=== PATIENT | female | born 1950 | race Caucasian/White ===

== ENCOUNTER 2016-11-20 16:02 | Emergency (ER) | payer MEDICARE, OTHER ==
--- NOTE | ~2016-11-20 | CT4 ---
[facility] A Service of [facility] & [facility] RADIOLOGY TEXT RESULTS PATIENT: YINKA BRADY LOCATION: [facility] : 49 UNIT #: [id number] AGE: [address]: Roscoe Hernandez MD SEX: F ORDER DR: [id number] [facility] [address] [place], [place] [address] [id number] MR#: [id number] #: [id number] NAME: YINKA BRADY. : 1950 SEX: F STUDY DATE/TIME: 11/20/2016 17:33 UNIT: [facility] ROOM: STUDY DESCRIPTION: CT Abd and Pelv Wo Cont Attending Physician: Roscoe Hernandez M.D. Ordering Physician: Roscoe Hernandez M.D. Primary Care Physician: Parris Napier M.D. MEDICAL IMAGING REPORT This report is preliminary unless electronic signature is present EXAM Abdomen and pelvis CT, no contrast, 11/20/2016 INDICATIONS 66-year-old female with abdominal and epigastric pain for 3 days. History of pancreatitis from alcohol abuse. Hypertension, anemia, diverticulosis. TECHNIQUE Noncontrast abdomen and pelvis CT was performed and compared with 09/17/2016. This CT exam was performed with one or more of the following radiation dose reduction techniques: Automatic exposure control, adjustment of mA and/or kV according to patient size, and iterative reconstruction. FINDINGS CT ABDOMEN: Exam markedly degraded by noncontrast technique. Included lung bases demonstrate bibasilar atelectasis/scarring, no effusion. No pericardial effusion. Aorta demonstrates atherosclerotic change. The spleen demonstrates granulomatous calcifications. The right adrenal gland is normal. There is a stable benign left adrenal adenoma. It measures 1.5 cm. Gallbladder unremarkable. There is diffuse fatty infiltration of the liver. The pancreas is atrophic. There are calcifications associated with the pancreas concentrated in the region of the head and uncinate process, but also involving the body. There is stranding of the peripancreatic fat. Imaging features suggest acute on chronic pancreatitis. Correlate with amylase and lipase levels. There is no drainable fluid collection or distinct pseudocyst at this time. The patency of the peripancreatic vasculature cannot be assessed due to noncontrast technique. Kidneys demonstrate no hydronephrosis or radiopaque stone. [facility] A Service of [facility] RADIOLOGY TEXT RESULTS PATIENT: YINKA BRADY LOCATION: [facility] : 48 UNIT #: [id number] AGE: [address]: Roscoe Hernandez MD SEX: F ORDER DR: CT PELVIS: Bladder unremarkable. No drainable fluid collection in the pelvis or adnexal mass. There is diverticulosis. No evidence of bowel obstruction. The appendix is normal. Chronic-appearing wall thickening of the ascending colon may reflect sequelae of prior infectious or inflammatory insults. Inguinal canals are unremarkable. No suspicious bone lesion. IMPRESSION 1. Imaging features most characteristic of mild acute on chronic pancreatitis. Correlate with amylase and lipase levels. No drainable fluid collection or pseudocyst within limitations of noncontrast CT. 2. Benign left adrenal adenoma. 3. Fatty infiltration of the liver. 4. The appendix is normal. 5. Diverticulosis. Dictated by... Michel Hathaway M.D. THIS IS AN ELECTRONICALLY VERIFIED REPORT Michel Hathaway M.D. at 11/21/2016 7:44 AM BELTRAN/krunal TD: 11/21/2016 02:02 JOB #: [id number] MEDICAL IMAGING REPORT COPY
--- NOTE | ~2016-11-20 | EKG ---
PATIENT: YINKA BRADY UNIT #: [id number] Ventricular Rate: 66 BPM Atrial Rate: 66 BPM P-R Interval: 186 ms QRS Duration: 78 ms Q-T Interval: 434 ms QTC Calculation(Bezet): 454 ms P Ciales: 63 degrees Calculated R Ciales: 39 degrees Calculated T Ciales: 24 degrees Diagnosis Line: Normal sinus rhythm Diagnosis Line: Normal ECG Diagnosis Line: When compared with ECG of 21-MAR-2016 03:05, Diagnosis Line: SC interval has decreased Diagnosis Line: Nonspecific T wave abnormality has replaced Diagnosis Line: inverted T waves in Anterior leads Diagnosis Line: QT has shortened Diagnosis Line: Confirmed by JEANETH BASHIR MD ([id number]) on 11/21/2016 Diagnosis Line: 7:29:20 PM INTERPRETING MD: MCKAY LOPEZ
[2016-11-20 15:52] LABS: BASOPHIL# 0.1 X10e3 (0-0.3); EOSINOPHIL# 0.9 X10e3 (0-0.7); EOSINOPHIL% 10.6 % (0.0-7.0); HEMATOCRIT 33.6 % (35.0-45.0); HEMOGLOBIN 11.2 gm/dL (12.0-16.0); LYMPHOCYTE# 0.9 X10e3 (1.0-3.5); LYMPHOCYTE% 10.5 % (17.0-45.0); MEAN CELL VOLUME 100.7 FL (83-96); MEAN CORPUSCULAR HEMOGLOBIN 33.7 PG (28-34); MEAN CORPUSCULAR HGB CONC 33.4 g/dL (30-36); MEAN PLATELET VOLUME 9.2 FL (6.5-11.5); MONOCYTE# 0.8 X10e3 (0-1.0); NEUTROPHIL% 68.9 % (40-75); PLATELET COUNT 238 X10e3 (140-420); RED BLOOD COUNT 3.34 X10e (3.90-5.30); RED CELL DISTRIBUTION WIDTH 13.7 % (11.0-15.5); WHITE BLOOD COUNT 8.7 X10e3 (4.0-10.5)
[2016-11-20 15:54] LABS: DIFF IND NO
[~2016-11-20 16:02] MED LIST: ADVIL200 M3 PO; ALBUTEROL17 G1 IH; AMBIEN PO; AMLODIPINE BESYL5 MG PO; ASPIRIN PO; ATARAX PO; ATENOLOL50 MG PO; AUGMENTIN875 M1 DOB; BENZONATATE PO; BUSPAR PO; DARVOCET-N 1001 TAB; ELIMITE60 GM TOP; ERYTHROMYCIN250 MG PO; FLAGYL PO; FLEXERIL10 MG PO; FOLIC ACID1 MG PO; HYDROCODON-ACE1 EAC7 PO; HYDROCODON-ACE1 EAC9 PO; HYDROCODONE-APA1 T57 PO; KCL PO; LORTAB 5/500 TA1 TA1 PO; LORTAB 7.5-5001 TAB PO; MACROBID100 M1 PO; MAG-OX 400400 M1 PO; MULTI VITAMIN1 EACH PO; NO MEDICATIONS; OXAZEPAM15 MG PO; PEPCID AC20 M2 PO; PERCOCET 7.5/321 TAB PO; POTASSIUM CHLO10 ME1 PO; PRILOSEC20 M1 PO; THIAMINE HCL100 M2 PO; TOPROL XL PO; TRAMADOL HCL50 M1 PO; VITAMIN B-1000 MCG/1 IJ; VITAMIN B-1000 MCG/1 INJ; [UNRECOGNIZED DRUG - CODE] TP
[2016-11-20 16:12] LABS: URINE SOURCE CLEAN CATCH
[2016-11-20 16:16] LABS: URINE APPEARANCE CLOUDY; URINE BILIRUBIN NEG (NEG); URINE BLOOD 3+ (NEG); URINE COLOR YELLOW; URINE GLUCOSE NEG (NEG); URINE KETONE NEG (NEG); URINE LEUKOCYTE ESTERASE 2+ (NEG); URINE NITRATE NEG (NEG); URINE PROTEIN 1+ (NEG); URINE SPECIFIC GRAVITY 1.016 (1.003-1.035); URINE UROBILINOGEN 0.2 MG/DL (NEG)
[2016-11-20 16:17] LABS: POC - CKMB <1.0 ng/mL (0.0-7.9); POC - TROPONIN <0.05 ng/mL (<=0.05)
[2016-11-20 16:18] LABS: CULTURE INDICATED? YES; URBCS1 AUWI 100-200 /[HPF] (0-2); URINE BACTERIA AUWI NEG (NEGATIVE); URINE SQUAMOUS EPITHELIAL CELL OCC /[HPF]
[2016-11-20 16:20] LABS: U HYALINE CASTS AUWI 0-2 /[LPF]
[2016-11-20 16:21] LABS: URINE YEAST PRESENT
[2016-11-20 16:45] LABS: ALBUMIN SERUM 3.7 g/dL (3.5-5.0); ALCOHOL BLOOD <5 mg/dL (0); ALKALINE PHOSPHATASE 193 U/L (32-92); ALT (SGPT) 28 U/L (10-40); AMYLASE 174 U/L (0-46); AST (SGOT) 37 U/L (10-42); BILIRUBIN, DIRECT 0.2 mg/dL (0.0-0.2); BILIRUBIN,INDIRECT 0.4 mg/dL (0.0-0.9); BILIRUBIN,TOTAL 0.6 mg/dL (0.2-2.0); BLOOD UREA NITROGEN 27 mg/dL (9-23); BUN/CREATININE RATIO 12.27; CALCIUM SERUM 8.6 mg/dL (8.4-10.2); CARBON DIOXIDE 16 mmol/L (22-31); CHLORIDE 110 mmol/L (100-111); CREATININE SERUM 2.2 mg/dL (0.6-1.4); GLOM FILT RATE Estimated 23.7 mL/min (>60); GLUCOSE FASTING 115 mg/dL (70-110); LIPASE 452 U/L (22-51); POTASSIUM 3.6 mmol/L (3.5-5.1); SODIUM 137 mmol/L (135-145)
[2017-01-24] MEDS ORDERED: TRAMADOL HCL50 M1 PO (19:52)
== END 2016-11-20 18:40 | disposition home or self-care (01) ==
LOC: CED 16:02
PROVIDERS: Emergency Medicine
DX: K85.90 Acute pancreatitis without necrosis or infection, unspecified (principal); N17.9 Acute kidney failure, unspecified; I10 Essential (primary) hypertension; F17.200 Nicotine dependence, unspecified, uncomplicated
CPT/HCPCS: 74176; 80048; 80076; 81003; 82150; 82553; 83690; 84484; 85025; 87086; 87186; 93005; 96361; 96374; 99284; G0480; J2405

== ENCOUNTER 2016-12-03 21:53 | Inpatient (IN) | payer MEDICARE, OTHER ==
--- NOTE | ~2016-12-03 | DS ---
Unit #: [id number] #: [id number] Patient: YINKA BRADY [id number] [address] [address] [id number] I MR#: [id number] NAME: YINKA BRADY. ROOM: 215 Age: 66 Sex: F Admission Date: 12/03/2016 : 1950 Discharge Date: 12/12/2016 Attending Physician: Aylin Jeffries M.D. Primary Care Physician: Parris Napier M.D. DISCHARGE SUMMARY DISCHARGE DIAGNOSES 1. Recurrent relapsing alcohol-induced pancreatitis. 2. Acute kidney injury/acute tubular necrosis with paraproteinemia. 3. Fluid overload. 4. Extended spectrum beta lactamases urinary tract infection. 5. Anemia, chronic iron deficiency. 6. Hypertension, uncontrolled. 7. Hyperlipidemia. 8. History of diverticular disease. 9. Anxiety. 10. Chronic pain on opiates. 11. History of severe hepatic steatosis. 12. History of nondisplaced fractures of L2, L3, and L4. 13. History of diabetes mellitus type 2. 14. Chronic obstructive pulmonary disease. 15. Vitamin B12 deficiency. 16. Metabolic acidosis. CONSULTATION Dr. Alan Coulter. PROCEDURE None. DIAGNOSTIC STUDIES LABORATORY: Sodium 138, potassium 4.3, carbon dioxide 19, creatinine 2.8. Urinalysis shows RBC 100-200, leukocyte esterase trace, WBC 2-5. WBC 7.7, hemoglobin 8.3, platelets 323,000. IMAGING: Chest x-ray: Mild bibasilar atelectasis versus infiltrates present. Ultrasound of the kidneys: Negative. ALLERGIES None. DISCHARGE MEDICATIONS 1. Sodium bicarbonate 650 three times daily. 2. Buspirone 7.5 mg p.o. b.i.d. 3. Tenormin 50 mg p.o. daily. 4. Lasix 40 daily. 5. Hydralazine 75 p.o. b.i.d. 6. Multivitamin one tablet daily. Unit #: [id number] #: [id number] Patient: YINKA BRADY 7. Tramadol 50 mg q.6 p.r.n. pain. 8. Folic acid 1 mg daily. 9. Thiamine 100 daily. HOSPITALIZATION COURSE A 66 year old admitted because of abdominal pain. Abdominal pain secondary to recurrent relapsing alcohol pancreatitis. The patient was put NPO, IV fluids given. Currently, she is tolerating diet. Continue with low-fat diet at home. Acute kidney injury/ATN with paraproteinemia: The patient is seen by Dr. Coulter. Workup has been done which is negative so far. She did receive fluids initially. Currently, she is fluid overload. Dr. Salgado started her on Lasix. I gave prescription. The patient will have BMP in one week time and follow with Dr. Coulter. Urinary tract infection with ESBL: The patient received meropenem. She completed her course. Hypertension: Uncontrolled. Hydralazine has been added. I gave prescription. Metabolic acidosis: Sodium bicarbonate has been added. Prescription given. DISPOSITION The patient will be discharged home. FOLLOWUP 1. Follow with family physician in one week time. The patient will have BMP checked in one week time and follow PCP with results. 2. Follow with Dr. No/Dr. Coulter in one to two weeks' time. Discharge time taken is 31 minutes. Dictated by... Sandro Santiago/yobany TD: 12/12/2016 16:30 JOB #: [id number] DISCHARGE SUMMARY Page 1 of 1 X Aylin Jeffries MD X DISCHARGE SUMMARY
--- NOTE | ~2016-12-03 | CR63 ---
[facility] A Service of [facility] RADIOLOGY TEXT RESULTS PATIENT: YINKA BRADY LOCATION: [facility] : 49 UNIT #: [id number] AGE: [address]: Aylin Jeffries MD SEX: F ORDER DR: [id number] [facility] [address] [place], [place] [address] [id number] I MR#: [id number] Acc #: [id number] NAME: YINKA BRADY : 1950 SEX: F STUDY DATE/TIME: 12/09/2016 13:23 UNIT: [facility] ROOM: [facility] STUDY DESCRIPTION: CR Chest 2 View Attending Physician: Aylin Jeffries M.D. Ordering Physician: Cameron Sultana M.D. Primary Care Physician: Parris Napier M.D. MEDICAL IMAGING REPORT This report is preliminary unless electronic signature is present EXAM Two-view chest, 12/09/2016 HISTORY 66-year-old female with shortness of air for 1 week. COMPARISON Chest, 03/21/2016 FINDINGS 2 views of the chest demonstrate mild bibasilar atelectasis/infiltrate. Small bilateral pleural effusions are suspected. No pneumothorax. Heart size is upper limits. Mediastinum and pulmonary vasculature unremarkable. IMPRESSION Mild bibasilar atelectasis/infiltrate and questionable small bilateral pleural effusions. Dictated by... Tank Ware M.D. THIS IS AN ELECTRONICALLY VERIFIED REPORT Tank Ware M.D. at 12/11/2016 8:34 AM Jaclyn TD: 12/10/2016 10:26 JOB #: [id number] MEDICAL IMAGING REPORT Page 1 of 1 COPY
--- NOTE | ~2016-12-03 | US77 ---
[facility] A Service of [facility] RADIOLOGY TEXT RESULTS PATIENT: YINKA BRADY LOCATION: [facility] : 49 UNIT #: [id number] AGE: [address]: COLETTE COULTER MD SEX: F ORDER DR: [id number] [facility] [address] [place], [place] [address] [id number] I MR#: [id number] Acc #: [id number] NAME: YINKA BRADY. : 1950 SEX: F STUDY DATE/TIME: 12/05/2016 11:36 UNIT: [facility] ROOM: [facility][note 3] STUDY DESCRIPTION: US Kidney Bilateral Complete Attending Physician: Colette Coulter M.D. Ordering Physician: Matti Cazares M.D. Primary Care Physician: Parris Napier M.D. MEDICAL IMAGING REPORT This report is preliminary unless electronic signature is present EXAM Renal ultrasound INDICATIONS Acute kidney injury. BUN 22 creatinine 2.5 GFR 20 PROCEDURE Schrader-scale and Doppler imaging of the kidneys and bladder. Comparison CT from 11/20/2016 FINDINGS Right kidney measures 10.3 cm. Normal cortical thickness and echotexture. There is a small amount of ascites in the right lower quadrant and in the pelvis. The left kidney measures 11.8 cm. Normal cortical thickness and echotexture. No hydronephrosis. IMPRESSION 1. Negative renal ultrasound. 2. Small amount of ascites is seen in the lower abdomen and pelvis. 3. Not mentioned above the bladder is relatively decompressed and not well seen. Dictated by... Maximus Sibley M.D. THIS IS AN ELECTRONICALLY VERIFIED REPORT Maximus Sibley M.D. at 12/06/2016 7:04 AM EED/rnr TD: 12/05/2016 17:14 JOB #: [id number] MEDICAL IMAGING REPORT [facility] A Service [facility] [place] [place] RADIOLOGY TEXT RESULTS PATIENT: YINKA BRADY LOCATION: [facility] : 48 UNIT #: [id number] AGE: [address]: COLETTE COULTER MD SEX: F ORDER DR: RIVERA
--- NOTE | ~2016-12-03 | CO ---
Unit #: [id number] #: [id number] Patient: YINKA BRADY [id number] [address] [place], [place] [address] [id number] I MR#: [id number] NAME: YINKA BRADY. ROOM: 215 Age: 66 Sex: F Admission Date: 12/03/2016 : 1950 Attending Physician: Terra Coulter M.D. Primary Care Physician: Parris Napier M.D. Consultation Date: 12/07/2016 CONSULTATION REPORT REASON FOR CONSULTATION Elevated creatinine level. HISTORY OF PRESENT ILLNESS The patient is a 66-year-old white female with known history of chronic alcohol use and secondary pancreatitis recurrently, hypertension, hyperlipidemia, came in with complaints of back ache and was admitted for possible pancreatitis. Creatinine level noted to be 2.6, with the creatinine of 1.3 in 08/2016 and 0.8 in 02/2016 with noted creatinine of 2.2 in 10/2016, and has been ranging from 2.5 to 2.9 since admission on 12/03/2016. The patient has not noted to be on any NSAIDs, recent IV contrast, nephrotoxic antibiotics. PAST MEDICAL HISTORY Significant for hypertension, hyperlipidemia, diverticular disease, anxiety disorder, right shoulder surgery. ALLERGIES No known drug allergies. FAMILY HISTORY Unremarkable for end-stage renal disease. SOCIAL HISTORY The patient lives alone. Does not smoke. Currently, continue to drink about a pint a day. REVIEW OF SYSTEMS CVS: No chest pain. RESPIRATORY: No cough or expectoration. GI: As above. : No hematuria, no dysuria. PHYSICAL EXAMINATION GENERAL: The patient is awake, alert, and oriented. VITAL SIGNS: Temperature is 98, heart rate is 78 per minute, blood pressure is 146/90. HEENT: Head is atraumatic. Extraocular movements are intact. Sclerae are anicteric. NECK: Supple. There is no elevation of JVD. CHEST: Clear. Air entry is equal bilaterally. Breathing is vesicular in nature. CARDIAC: S1, S2 audible. There is no S3, no S4. ABDOMEN: Soft. There is no organomegaly. No guarding. No rigidity. No Unit #: [id number] #: [id number] Patient: YINKA BRADY rebound tenderness. There is edema after IV fluids. DIAGNOSTIC STUDIES LABORATORY RESULTS: WBC is 12.8, hemoglobin is 11.5, hematocrit is 36, platelets are 237. Sodium is 134, potassium 3.1, chloride 106, CO2 of 15, BUN 30, creatinine 2.9, glucose 96, calcium 8.6 on admission. Total bilirubin 0.7. LFTs are normal. Albumin is 3.7. Lipase is 203. IMPRESSION 1. Acute kidney injury likely acute tubular necrosis with underlying chronic kidney disease stage 3, possibly secondary to sepsis syndrome, hemodynamic related changes. Renal function could take a few days to improve. Quantitative proteinuria. Check for renal ultrasound. Consider workup for paraproteinemia. Unlikely postinfectious glomerulonephritis. Follow urinary sediment. 2. Pancreatitis. 3. Hyponatremia, likely secondary to hemodynamic related increase and stimulation of antidiuretic hormone. 4. Hypokalemia, supplement. 5. Non-anion gap metabolic acidosis secondary to acute kidney injury. Dictated by... Alan Coulter M.D. RA/nic TD: 12/08/2016 13:21 JOB #: [id number] CONSULTATION REPORT X Alan Coulter MD CONSULTATION REPORT
--- NOTE | ~2016-12-03 | A ---
[facility] Nutrition Therapy DATE: 12/04/16 Patient: YINKA BRADY Physician: YVETTE Address: [address] [place] [address] Room/Bed: [address] [place] [address], Zip: [place] [address] Admit Date: 12/03/16 Date of : [birth year] Height: 5 3 Weight: 100 45.35 NUTRITIONAL ASSESSMENT: REASON: Low BMI 66 yo pt admitted for acute pancreatitis and acute REGINO PMH: HLD, HTN, anemia, recurrent pancreatitis, anxiety, diverticulosis Anthropometrics: HT: 5'3", WT: 45 kg (99#), BMI: 17.5, 86%IBW Labs: Na+ 133, Gluc 170, BUN 26, Creat 2.6, Ca++ 7.6, Alb 3.0, Phos 2.2, GFR 19.5 Meds: Zofran, Pepcid, D5%, Thiamine I/O & Bowel function: information not available Skin Integrity: Bruises (arms), scabs (back, shoulder, arms) Estimated Nutrition Needs: Increased energy and protein needs Assessment: Chart reviewed, events noted. Pt has a history of recurrent acute pancreatitis and alcohol abuse. Pt reported loss of appetite and nausea since Saturday (4 days), but reported a good appetite prior. Pt reported 30# wt loss over past year, stating UBW ~115-118#. RD encouraged adequate calorie and protein intake, pt agreeded, receiving Ensure Clear. RD provided verbal low-fat diet education. Pt reported no diet education needs at this time. RD to follow. Dx: Inadequate energy intake RT current clinical condition AEB clear liquid diet, 17.5 BMI, 86%IBW, patient's report above. Intervention: 1. Ensure Clear 2. Clear Liquid Monitoring, Evaluation and Goals: 1. PO intake; provide and consume ~80-100% of estimated energy needs 2. Labs; WNL 3. GI; promote regular GI function Recommendations: 1. Once medically feasible, advance diet as tolerated to low-fat diet 2' dx, PMH. [facility] Nutrition Therapy DATE: 12/04/16 Patient: YINKA BRADY Physician: YVETTE Address: [address] [place] [address] Room/Bed: [address] [place] [address], Zip: [place] [address] Admit Date: 12/03/16 Date of : [birth year] Height: 5 3 Weight: 100 45.35 2. Encourage adequate supplement PO intake. RD will f/u per protcol as pt is at moderate nutritional risk. Respectfully, SUSAN KATZ, Dry Kiln Loader Dalia Gannon MS, RD, LD Food and Nutritional Services [facility] cc: client file
--- NOTE | ~2016-12-03 | FU ---
[facility] Nutrition Therapy DATE: 12/10/16 Patient: YINKA BRADY Physician: YVETTE Address: [address] [place] [address] Room/Bed: [address] [place] [address], Zip: [place] [address] Admit Date: 12/03/16 Date of : [birth year] Height: 5 3 Weight: 100 45.35 NUTRITION MONITORING/FOLLOW-UP: Reason: PT SEEN FOR FOLLOW-UP DX: PANCREATITIS, REGINO Anthropometrics: 5'3", WT: 99# (ADMIT WEIGHT) (45 KG), BMI: 17.5 Labs: GLU: 112, BUN: 37, CREAT: 3.0 Meds: THIAMINE, PEPCID, NACL, ZOFRAN I&O's: 1445/900 Skin: ISSUES NOTED EDEMA: BUE 2+ EDEMA; BLE 2+ EDEMA Estimated Nutrition Needs: INCREASED NUTRIENT NEEDS 2' PT UNDERWEIGHT, CURRENT CONDITION, PMH Assessment: CHART REVIEWED AND EVENTS NOTED. PT SEEN FOR FOLLOW-UP. PT REPORTS DRY MOUTH AND VOMITING THIS AM. PT REPORTS SLOWLY TOLERATING PO INTAKE AND APPETITE. THIS RD ENCOURAGED SLOW GRADUAL PO INTAKE WELL ADEQUATE KCAL AND PROTEIN INTAKE, PT AGREED AND WANTS TO CONTINUE DRINKING ENSURE CLEAR BID. PT REPORTED NO DIET QUESTIONS AT THIS TIME. RD TO FOLLOW. Dx: INADEQUATE ENERGY INTAKE R/T CURRENT CLINICAL CONDITION AEB LOW BMI NOTED (17.5), PT REPORT ABOVE- IN PROGRESS. Intervention: 1. HH DIET 2. MIXED ANTHONY ENSURE CLEAR BID Monitoring, Evaluation and Goals: GOALS NOT MET 1. PO INTAKE; CONSUME >50% OF MEALS W/NO C/O N/V/D 2. WEIGHTS; PROMOTE GRADUAL WEIGHT GAIN AND PREVENT WEIGHT LOSS 3. LABS; WNL 4. GI; PROMOTE REGULAR GI FUNCTION MONITOR: -PO INTAKE/APPETITE -SUPPLEMENT INTAKE -WEIGHTS Recommendations: [facility] Nutrition Therapy DATE: 12/10/16 Patient: YINKA BRADY Physician: YVETTE Address: [address] [place] [address] Room/Bed: [address] [place] [address], Zip: [place] [address] Admit Date: 12/03/16 Date of : [birth year] Height: 5 3 Weight: 100 45.35 1. CONTINUE TO ENCOURAGE ADEQUATE KCAL, PROTEIN AND FLUID INTAKE 2. OBTAIN UPDATED WEIGHTS q 3 DAYS FOR MONITORING PURPOSES RD WILL F/U PER PROTOCOL PT IS MILD/MODERATELY COMPROMISED Respectfully, RAKAN HELMS MS, RD, LD Food and Nutritional Services [facility] cc: client file
--- NOTE | ~2016-12-03 | HP ---
Unit #: [id number] #: [id number] Patient: YINKA BRADY [id number] [address] [place], [place] [address] [id number] MR#: [id number] NAME: YINKA BRADY. ROOM: 327[address] Age: 66 Sex: F Admission Date: 12/03/2016 : 1950 Attending Physician: Marbella Douglass M.D. Primary Care Physician: Parris Napier M.D. HISTORY AND PHYSICAL CHIEF COMPLAINT Recurrent relapsing pancreatitis. HISTORY This 66-year-old female with hypertension, hyperlipidemia, previous history of alcohol-induced pancreatitis, is admitted for pancreatitis. The patient was in her usual state of health until three days ago when she began to experience her usual abdominal and chest discomfort radiating to her back, similar to her previous episodes of pancreatitis and notes that her urine appears to be darker although she denies change in her urinary output. She has been taking some clear liquids but not able to eat. She presents to this emergency department with labs consistent with acute pancreatitis and acute kidney injury. She was given a liter of saline, Zofran, morphine and Protonix. PAST MEDICAL HISTORY 1. Hyperlipidemia. 2. Hypertension. 3. History of anemia. 4. Diverticular disease. 5. Recurrent pancreatitis secondary to alcohol abuse. 6. Anxiety disorder. 7. Wrist surgery. 8. Right shoulder surgery. ALLERGIES None. HOME MEDICATIONS Uncertain; I believe patient takes atenolol, cholesterol medicine, vitamins but will check with [facility] pharmacy. FAMILY HISTORY Diabetes, negative for pancreatis disease. SOCIAL HISTORY The patient essentially lives alone although her son's friend stays there some of the time. She does not smoke. She was drinking a pint a day of alcohol but states that she has cut down significantly recently, and her last drink was two drinks a couple days ago. REVIEW OF SYSTEMS Unit #: [id number] #: [id number] Patient: YINKA BRADY Notable for nausea, poor p.o. intake, abdominal pain, hyperlipidemia, hypertension, anemia, diverticular disease, pancreatitis, alcohol abuse, abovementioned surgeries. All other systems were reviewed and are otherwise negative. PHYSICAL EXAMINATION GENERAL: Pleasant, thin 66-year-old female currently in no acute distress. VITAL SIGNS: Temperature 98. Pulse 78. Respirations 16. Blood pressure 146/90. O2 saturation is 98% on room air. HEENT: Eyes PERRLA, extraocular muscles are intact. Pharynx is benign. NECK: Supple, without adenopathy or thyromegaly. CHEST: Clear CARDIAC: Normal S1 and S2, without S3, S4 or murmur. ABDOMEN: Bowel sounds are present. Generalized abdominal tenderness without rebound or guarding. Patient does have mild hepatomegaly on exam. No masses. EXTREMITIES: Without cyanosis, clubbing or edema. Pedal pulses are present. NEUROLOGIC EXAM: Patient is awake, alert, oriented. Cranial nerves are intact. Equal strength throughout. DIAGNOSTIC STUDIES LABORATORY: Admission labs: Hematocrit is 36, white blood count is 12.8, MCV is 1.1, normal platelet count. SMA-12: BUN 30, creatinine 2.9 up from a creatinine of 1.3 08/2016, sodium 134, potassium 3.1, CO2 was 15, lipase is 202, alkaline phosphatase 268. ASSESSMENT 1. Recurrent relapsing alcohol-induced pancreatitis. 2. Acute kidney injury in large part secondary to dehydration with hypokalemia. 3. Hypertension. 4. Hyperlipidemia. PLANS 1. Aggressive IV fluids and pain control. 2. Obtain Is and Os. 3. Replace potassium, check magnesium. 4. DVT and gastritis prophylaxis. 5. Recheck all labs in the morning. 6. Low threshold for CT scan if symptoms are not improving. Dictated by Marbella Douglass M.D. AML/cf TD: 12/03/2016 22:37 JOB #: [id number] Unit #: [id number] #: [id number] Patient: YINKA BRADY HISTORY AND PHYSICAL X Marbella Douglass MD HISTORY AND PHYSICAL
[2016-12-03 20:14] LABS: BASOPHIL# 0.1 X10e3 (0-0.3); BASOPHIL% 0.7 % (0-2.5); DIFF IND NO; EOSINOPHIL# 0.4 X10e3 (0-0.7); EOSINOPHIL% 3.1 % (0.0-7.0); HEMOGLOBIN 11.5 gm/dL (12.0-16.0); LYMPHOCYTE# 1.1 X10e3 (1.0-3.5); LYMPHOCYTE% 8.7 % (17.0-45.0); MEAN CORPUSCULAR HEMOGLOBIN 32.3 PG (28-34); MEAN PLATELET VOLUME 9.5 FL (6.5-11.5); MONOCYTE# 1.5 X10e3 (0-1.0); MONOCYTE% 11.6 % (3.0-12.0); NEUTROPHIL# 9.7 X10e3 (1.5-7.1); NEUTROPHIL% 75.9 % (40-75); PLATELET COUNT 237 X10e3 (140-420); RED BLOOD COUNT 3.57 X10e (3.90-5.30); RED CELL DISTRIBUTION WIDTH 13.3 % (11.0-15.5); WHITE BLOOD COUNT 12.8 X10e3 (4.0-10.5)
[2016-12-03 20:36] LABS: ALBUMIN SERUM 3.7 g/dL (3.5-5.0); BILIRUBIN, DIRECT 0.2 mg/dL (0.0-0.2); BILIRUBIN,INDIRECT 0.5 mg/dL (0.0-0.9); BILIRUBIN,TOTAL 0.7 mg/dL (0.2-2.0); BUN/CREATININE RATIO 10.34; CALCIUM SERUM 8.6 mg/dL (8.4-10.2); CREATININE SERUM 2.9 mg/dL (0.6-1.4); GLOM FILT RATE Estimated 17.2 mL/min (>60); POTASSIUM 3.1 mmol/L (3.5-5.1); PROTEIN TOTAL SERUM 7.4 g/dL (6.0-8.3)
[2016-12-03 23:42] LABS: URINE SOURCE CLEAN CATCH
[2016-12-03 23:47] LABS: URINE APPEARANCE TURBID; URINE BILIRUBIN NEG (NEG); URINE BLOOD 3+ (NEG); URINE COLOR ORANGE; URINE GLUCOSE NEG (NEG); URINE KETONE NEG (NEG); URINE LEUKOCYTE ESTERASE 2+ (NEG); URINE NITRATE NEG (NEG); URINE PROTEIN 2+ (NEG); URINE SPECIFIC GRAVITY 1.013 (1.003-1.035); URINE UROBILINOGEN 0.2 MG/DL (NEG)
[2016-12-03 23:50] LABS: CULTURE INDICATED? YES; URBCS1 AUWI INNUM /[HPF] (0-2); URINE BACTERIA AUWI NEG (NEGATIVE); URINE SQUAMOUS EPITHELIAL CELL OCC /[HPF]; UWBCS1 AUWI 25-50 (0-5)
[2016-12-04] LABS: URINE RED BLOOD CELL CAST 0-2 /[HPF]
[2016-12-04 03:18] LABS: BASOPHIL# 0.1 X10e3 (0-0.3); BASOPHIL% 0.7 % (0-2.5); EOSINOPHIL# 0.8 X10e3 (0-0.7); EOSINOPHIL% 6.8 % (0.0-7.0); HEMATOCRIT 29.7 % (35.0-45.0); HEMOGLOBIN 9.6 gm/dL (12.0-16.0); LYMPHOCYTE# 1.6 X10e3 (1.0-3.5); MEAN CELL VOLUME 101.8 FL (83-96); MEAN CORPUSCULAR HEMOGLOBIN 32.9 PG (28-34); MEAN CORPUSCULAR HGB CONC 32.3 g/dL (30-36); MEAN PLATELET VOLUME 9.7 FL (6.5-11.5); MONOCYTE# 1.8 X10e3 (0-1.0); MONOCYTE% 14.3 % (3.0-12.0); NEUTROPHIL# 8.1 X10e3 (1.5-7.1); NEUTROPHIL% 65.2 % (40-75); PLATELET COUNT 223 X10e3 (140-420); RED BLOOD COUNT 2.92 X10e (3.90-5.30); RED CELL DISTRIBUTION WIDTH 13.3 % (11.0-15.5); WHITE BLOOD COUNT 12.4 X10e3 (4.0-10.5)
[2016-12-04 03:22] LABS: DIFF IND NO
[2016-12-04 04:06] LABS: BILIRUBIN,TOTAL 0.7 mg/dL (0.2-2.0); BUN/CREATININE RATIO 10.74; CALCIUM SERUM 7.6 mg/dL (8.4-10.2); CREATININE SERUM 2.7 mg/dL (0.6-1.4); GLOM FILT RATE Estimated 18.7 mL/min (>60); MAGNESIUM 1.8 mg/dL (1.6-3.0); POTASSIUM 3.6 mmol/L (3.5-5.1); PROTEIN TOTAL SERUM 5.6 g/dL (6.0-8.3)
[2016-12-04 14:49] LABS: CALCIUM SERUM 7.6 mg/dL (8.4-10.2); CREATININE SERUM 2.6 mg/dL (0.6-1.4); GLOM FILT RATE Estimated 19.5 mL/min (>60); POTASSIUM 3.6 mmol/L (3.5-5.1)
[2016-12-05 06:27] LABS: HEMATOCRIT 27.9 % (35.0-45.0); HEMOGLOBIN 9.2 gm/dL (12.0-16.0); MEAN CELL VOLUME 99.9 FL (83-96); MEAN CORPUSCULAR HEMOGLOBIN 33.1 PG (28-34); MEAN CORPUSCULAR HGB CONC 33.1 g/dL (30-36); MEAN PLATELET VOLUME 9.6 FL (6.5-11.5); RED BLOOD COUNT 2.79 X10e (3.90-5.30); RED CELL DISTRIBUTION WIDTH 13.3 % (11.0-15.5); WHITE BLOOD COUNT 10.1 X10e3 (4.0-10.5)
[2016-12-05 06:57] LABS: BUN/CREATININE RATIO 8.8; CALCIUM SERUM 7.6 mg/dL (8.4-10.2); CREATININE SERUM 2.5 mg/dL (0.6-1.4); GLOM FILT RATE Estimated 20.4 mL/min (>60); POTASSIUM 3.3 mmol/L (3.5-5.1)
[2016-12-06 07:37] LABS: BUN/CREATININE RATIO 8.07; CREATININE SERUM 2.6 mg/dL (0.6-1.4); GLOM FILT RATE Estimated 19.5 mL/min (>60); POTASSIUM 4.2 mmol/L (3.5-5.1)
[2016-12-07 06:08] LABS: BUN/CREATININE RATIO 8.46; CALCIUM SERUM 7.8 mg/dL (8.4-10.2); CREATININE SERUM 2.6 mg/dL (0.6-1.4); GLOM FILT RATE Estimated 19.5 mL/min (>60); POTASSIUM 4.7 mmol/L (3.5-5.1)
[2016-12-08 09:10] LABS: HEMATOCRIT 25.1 % (35.0-45.0); MEAN CELL VOLUME 101.6 FL (83-96); MEAN CORPUSCULAR HEMOGLOBIN 32.5 PG (28-34); MEAN PLATELET VOLUME 9.8 FL (6.5-11.5); RED BLOOD COUNT 2.47 X10e (3.90-5.30); RED CELL DISTRIBUTION WIDTH 13.6 % (11.0-15.5); WHITE BLOOD COUNT 11.5 X10e3 (4.0-10.5)
[2016-12-08 10:12] LABS: BUN/CREATININE RATIO 10.74; CALCIUM SERUM 8.3 mg/dL (8.4-10.2); CREATININE SERUM 2.7 mg/dL (0.6-1.4); GLOM FILT RATE Estimated 18.7 mL/min (>60); POTASSIUM 4.8 mmol/L (3.5-5.1)
[2016-12-09 08:07] LABS: BUN/CREATININE RATIO 10.62; CALCIUM SERUM 8.6 mg/dL (8.4-10.2); CREATININE SERUM 3.2 mg/dL (0.6-1.4); GLOM FILT RATE Estimated 15.4 mL/min (>60); POTASSIUM 4.7 mmol/L (3.5-5.1)
[2016-12-09 08:52] LABS: URINE APPEARANCE CLEAR; URINE BILIRUBIN NEG (NEG); URINE BLOOD 3+ (NEG); URINE COLOR YELLOW; URINE GLUCOSE NEG (NEG); URINE KETONE NEG (NEG); URINE LEUKOCYTE ESTERASE NEG (NEG); URINE NITRATE NEG (NEG); URINE PROTEIN 1+ (NEG); URINE SPECIFIC GRAVITY 1.011 (1.003-1.035); URINE UROBILINOGEN 0.2 MG/DL (NEG)
[2016-12-09 08:55] LABS: U HYALINE CASTS AUWI 0-2 /[LPF]; URBCS1 AUWI 100-200 /[HPF] (0-2); URINE BACTERIA AUWI NEG (NEGATIVE); URINE SQUAMOUS EPITHELIAL CELL NONE SEEN /[HPF]; UWBCS1 AUWI 0-2 (0-5)
[2016-12-09 10:44] LABS: HEMATOCRIT 28.4 % (35.0-45.0); HEMOGLOBIN 9.1 gm/dL (12.0-16.0); MEAN CELL VOLUME 101.2 FL (83-96); MEAN CORPUSCULAR HEMOGLOBIN 32.3 PG (28-34); MEAN CORPUSCULAR HGB CONC 31.9 g/dL (30-36); MEAN PLATELET VOLUME 9.1 FL (6.5-11.5); RED BLOOD COUNT 2.81 X10e (3.90-5.30); RED CELL DISTRIBUTION WIDTH 13.8 % (11.0-15.5); WHITE BLOOD COUNT 13.5 X10e3 (4.0-10.5)
[2016-12-10 06:08] LABS: HEMATOCRIT 25.7 % (35.0-45.0); HEMOGLOBIN 8.3 gm/dL (12.0-16.0); MEAN CELL VOLUME 99.3 FL (83-96); MEAN CORPUSCULAR HGB CONC 32.3 g/dL (30-36); MEAN PLATELET VOLUME 9.3 FL (6.5-11.5); RED BLOOD COUNT 2.59 X10e (3.90-5.30); RED CELL DISTRIBUTION WIDTH 13.8 % (11.0-15.5); WHITE BLOOD COUNT 7.7 X10e3 (4.0-10.5)
[2016-12-10 06:56] LABS: BUN/CREATININE RATIO 12.33; CALCIUM SERUM 8.5 mg/dL (8.4-10.2); GLOM FILT RATE Estimated 16.5 mL/min (>60); POTASSIUM 4.7 mmol/L (3.5-5.1)
[2016-12-11 06:25] LABS: HEMATOCRIT 25.1 % (35.0-45.0); HEMOGLOBIN 8.1 gm/dL (12.0-16.0); MEAN CELL VOLUME 99.4 FL (83-96); MEAN CORPUSCULAR HGB CONC 32.2 g/dL (30-36); MEAN PLATELET VOLUME 9.1 FL (6.5-11.5); RED BLOOD COUNT 2.52 X10e (3.90-5.30); WHITE BLOOD COUNT 5.8 X10e3 (4.0-10.5)
[2016-12-11 06:48] LABS: BUN/CREATININE RATIO 13.22; CALCIUM SERUM 8.4 mg/dL (8.4-10.2); CREATININE SERUM 3.1 mg/dL (0.6-1.4); GLOM FILT RATE Estimated 15.9 mL/min (>60); POTASSIUM 4.3 mmol/L (3.5-5.1)
[2016-12-11 23:12] LABS: SPE A1GLOB (PNL) 0.4 g/dL (0.2-0.3); SPE A2GLOB (PNL) 0.6 g/dL (0.5-0.9); SPE ALB (PNL) 3.1 g/dL (3.8-4.8); SPE BETA 1 GLOBULIN 0.3 g/dL (0.4-0.6); SPE BETA 2 GLOBULIN 0.5 g/dL (0.2-0.5); SPE GAMMA (PNL) 0.9 g/dL (0.8-1.7); SPETP (PNL) 5.8 g/dL (6.1-8.1)
[2016-12-12 10:03] LABS: URINE SOURCE CLEAN CATCH
[2016-12-12 10:04] LABS: URBCS1 AUWI 100-200 /[HPF] (0-2); URINE APPEARANCE CLOUDY; URINE BACTERIA AUWI NEG (NEGATIVE); URINE BILIRUBIN NEG (NEG); URINE BLOOD 3+ (NEG); URINE COLOR YELLOW; URINE GLUCOSE NEG (NEG); URINE KETONE TRACE (NEG); URINE LEUKOCYTE ESTERASE TRACE (NEG); URINE NITRATE NEG (NEG); URINE PROTEIN 1+ (NEG); URINE SPECIFIC GRAVITY 1.014 (1.003-1.035); URINE SQUAMOUS EPITHELIAL CELL NONE SEEN /[HPF]; URINE UROBILINOGEN 0.2 MG/DL (NEG)
[2016-12-12 10:08] LABS: CULTURE INDICATED? NO
[2016-12-12 12:00] LABS: BUN/CREATININE RATIO 14.64; CALCIUM SERUM 8.5 mg/dL (8.4-10.2); CREATININE SERUM 2.8 mg/dL (0.6-1.4); GLOM FILT RATE Estimated 17.9 mL/min (>60); POTASSIUM 4.3 mmol/L (3.5-5.1)
[2016-12-12] MEDS ORDERED: SODIUM BICARBO650 MG PO (14:11)
[2016-12-12] MEDS ORDERED: FUROSEMIDE40 MG PO (14:12)
[2016-12-12] MEDS ORDERED: APRESOLINE PO (14:14)
[2016-12-13 11:00] LABS: UPE RAND ALPHA1 GLOB 4 % (()); UPE RAND PROT/CREAT 1082 (21-161); UPE RANDOM ALB (PNL) 39 % (()); UPE RANDOM ALPHA 2 GLOB 11 % (()); UPE RANDOM BETA GLOB 14 % (()); UPE RANDOM CREATININE 84.1 mg/dL (20-320); UPE RANDOM GAMMA GLOB 32 % (()); UPE RANDOM TOTAL PROTEIN (PNL) 91 mg/dL (5-24)
[2016-12-13 20:59] LABS: MYELOPEROXIDASE AB (PNL) <1.0 AI (<1.0); PROTEINASE-3 AB (PNL) <1.0 AI (<1.0)
[2016-12-14 00:43] LABS: COMPLEMENT C3 112 mg/dL (90-180); COMPLEMENT C4 26 mg/dL (16-47)
[2017-01-24] MEDS ORDERED: TRAMADOL HCL50 M1 PO (19:52)
== END 2016-12-12 15:49 | disposition home or self-care (01) | DRG 438 ==
LOC: CED 21:53 → CEDOF 22:00 → C2A 12-04 07:55
PROVIDERS: Internal Medicine; Internal Medicine Endocrinology, Diabetes & Metabolism; Internal Medicine Nephrology
PROC: 30233N1 Transfusion of Nonautologous Red Blood Cells into Peripheral Vein, Percutaneous Approach (ICD-10-PCS; principal; 2016-12-07)
DX: K85.20 Alcohol induced acute pancreatitis without necrosis or infection (principal); N17.0 Acute kidney failure with tubular necrosis; E87.2 Acidosis; D89.2 Hypergammaglobulinemia, unspecified; E87.70 Fluid overload, unspecified; N39.0 Urinary tract infection, site not specified; B96.20 Unspecified Escherichia coli [E. coli] as the cause of diseases classified elsewhere; Z68.1 Body mass index [BMI] 19.9 or less, adult; E87.1 Hypo-osmolality and hyponatremia; K86.0 Alcohol-induced chronic pancreatitis; E86.0 Dehydration; Z16.12 Extended spectrum beta lactamase (ESBL) resistance; I12.9 Hypertensive chronic kidney disease with stage 1 through stage 4 chronic kidney disease, or unspecified chronic kidney disease; N18.3 Chronic kidney disease, stage 3 (moderate); D50.8 Other iron deficiency anemias; E78.5 Hyperlipidemia, unspecified; F41.9 Anxiety disorder, unspecified; G89.29 Other chronic pain; E11.9 Type 2 diabetes mellitus without complications; J44.9 Chronic obstructive pulmonary disease, unspecified; E53.8 Deficiency of other specified B group vitamins; Z83.3 Family history of diabetes mellitus; E87.6 Hypokalemia; R63.6 Underweight
CPT/HCPCS: 36415; 71020; 76770; 80048; 80053; 80076; 81003; 82150; 83690; 83735; 84156; 84165; 84166; 84478; 85025; 85027; 86021; 86160; 86335; 87086; 87088; 87186; 99285; C9113; J0696; J1940; J2185; J2270; J2405; P9047

== ENCOUNTER 2016-12-26 18:42 | Inpatient (IN) | payer MEDICARE, OTHER ==
--- NOTE | ~2016-12-26 | US136 ---
[facility] A Service of [facility] RADIOLOGY TEXT RESULTS PATIENT: YINKA BRADY LOCATION: [facility] [id number] : [birth year] UNIT #: [id number] AGE: [address]: Roxann Strauss MD SEX: F ORDER DR: [id number] [facility] [address] [place], [place] [address] [id number] I MR#: [id number] Acc #: [id number] NAME: YINKA BRADY. : 1950 SEX: F STUDY DATE/TIME: 12/29/2016 12:32 UNIT: [facility] ROOM: [facility] STUDY DESCRIPTION: US U/L Ext Art Study Ltd Bilat Attending Physician: Roxann Strauss M.D. Ordering Physician: Roxann Strauss M.D. Primary Care Physician: Parris Napier M.D. MEDICAL IMAGING REPORT This report is preliminary unless electronic signature is present EXAM Ankle-brachial indices HISTORY Evaluate for peripheral vascular disease. Bilateral lower extremity rest pain. Chronic ulceration, nonhealing wound left third toe. FINDINGS Peak brachial pressure is 131 on the right. The left brachial pressure was not obtained due to left upper extremity IV. At the right ankle, peak pressures are 163 dorsalis pedis and 170 posterior tibial, for an ankle-brachial index of 1.24 at the dorsalis pedis and 1.30 at the posterior tibial. Right great toe pressure is 137 for a toe - brachial index of 1.05. At the left ankle, peak pressures are 190 posterior tibial and 177 dorsalis pedis, for a ankle-brachial index of 1.45 at the posterior tibial and 1.35 at the dorsalis pedis. The left great toe pressure is 131 for a toe - brachial index of 1.0. IMPRESSION Normal bilateral ankle-brachial indices measuring 1.30 on the right and 1.45 on the left. Dictated by... Eduardo Fried M.D. THIS IS AN ELECTRONICALLY VERIFIED REPORT Eduardo Fried M.D. at 12/29/2016 11:26 PM DFL/rnr [facility] A Service of [facility] RADIOLOGY TEXT RESULTS PATIENT: YINKA BRADY LOCATION: [facility] [id number] : [birth year] UNIT #: [id number] AGE: [address]: Roxann Strauss MD SEX: F ORDER DR: TD: 12/29/2016 22:37 JOB #: [id number] MEDICAL IMAGING REPORT Page 1 of 1 COPY
--- NOTE | ~2016-12-26 | OR ---
Unit #: [id number] #: [id number] Patient: YINKA BRADY [id number] [address] [address] [id number] I MR#: [id number] NAME: YINKA BRADY ROOM: 573 Date of Procedure: 12/28/2016 Admission Date: 12/26/2016 Surgeon: José Miguel Cornejo M.D. : 1950 Attending Physician: Roxann Strauss M.D. Primary Care Physician: Parris Napier M.D. OPERATIVE REPORT PRIMARY CARE PHYSICIAN Parris Napier M.D. PREOPERATIVE DIAGNOSES Dysphagia and epigastric pain. The patient has presented with recurrent relapsing alcoholic pancreatitis. PROCEDURES PERFORMED Upper gastrointestinal endoscopy and biopsy. POSTOPERATIVE DIAGNOSES 1. The patient had moderate prepyloric antral erosive diffuse gastritis. 2. There was a single diminutive ulcer in the antrum, this was about 4 mm in size with grayish-white ulcer base. 3. Mild distal erosive esophagitis. 4. Rest of the examination up to the third part of the duodenum was normal. No stricture was present in the distal esophagus. RECOMMENDATIONS Suggest using Pepcid 20 mg p.o. q.i.d. at least for the next 6 to 8 weeks and thereafter the dose can be reduced to once or twice a day. SEDATION USED MAC. DESCRIPTION OF PROCEDURE Following detailed explanation of potential risks and complications of an upper endoscopy, namely perforation, bleeding, and complications related to sedation, the patient was brought to GI lab and laid in the left lateral decubitus position. Lubricated tip of the Olympus video upper endoscope was passed through the bite block into the proximal esophagus under direct vision. The entire esophageal mucosa was examined and the patient was noted to have distal grade 1 to 2 erosive esophagitis. No stricture was noted. The scope was then advanced into the gastric cavity and the latter was insufflated. Mucosa of the fundus, body, and antrum was examined. The patient was noted to have moderate diffuse prepyloric antral erosive gastritis. In addition, there was presence of a single gastric ulcer in the distal body of the stomach. This was about 5 mm in size with grayish-white ulcer base. Pylorus was intubated with visualization of the normal duodenal bulb and second and third part of the duodenum. Upon withdrawal and retroflexion, the incisura, cardia, and greater curve were examined and a biopsy was obtained from the antrum for Unit #: [id number] #: [id number] Patient: YINKA BRADY. The scope was then withdrawn into the distal esophagus. The entire esophageal mucosa was examined all the way up to pharynx and no additional findings were noted. The patient tolerated the procedure without any postprocedure complications. Dictated by... Sandro Springer/nic TD: 12/28/2016 22:20 JOB #: [id number] CC: Sandro Austin M.D. OPERATIVE REPORT Page 1 of 1 X José Miguel Cornejo MD X PROCEDURE OPERATIVE NOTE
--- NOTE | ~2016-12-26 | DS ---
Unit #: [id number] #: [id number] Patient: YINKA BRADY [id number] [address] [place], [place] [address] [id number] I MR#: [id number] NAME: YINKA BRADY. ROOM: 238 Age: 66 Sex: F Admission Date: 12/26/2016 : 1950 Discharge Date: 01/02/2017 Attending Physician: Ginna Ramirez M.D. Primary Care Physician: Parris Napier M.D. DISCHARGE SUMMARY HOSPITAL COURSE Since Dr. Strauss's dictation of 12/29/2016, the patient has had development of a phlebitis in her right upper extremity. Doppler ultrasound was obtained which showed that there is no deep venous thrombosis. There is superficial basilic vein at the level of the antecubital fossa consistent with a phlebitis. Patient was started on Levaquin 750 mg orally and this is still every other day due to her kidney disease. The patient also had pain in her right medial aspect of her metatarsal. Uric acid level was obtained and on exam it does appear red. Uric acid level was slightly elevated at 11.3. I will initiate patient on colchicine 0.6 mg p.o. daily. She has been seen in consultation by physical and occupational therapy. She was deemed safe to be discharged home. Two of her sisters did express concern that patient lives on the second floor and would not be able to get to her apartment. The patient was assessed on the stairs and was able to climb 20 steps. Patient able to ambulate 600 feet and was independent. At this time, patient is not appropriate for subacute rehab. Patient's sisters are also concerned that patient will go home and lapse back into alcohol consumption. I have spoken with the patient's sister and the patient that the majority of her medical problems are alcohol-related and she needs to abstain from alcohol but it is the patient's choice if she is going to relapse back into alcoholism or not. Matthew, the brand planner, has given her information for outpatient alcohol rehab. The patient's long-term prognosis is guarded if she is to continue to consume alcohol with her liver disease as well as her kidney disease. DISCHARGE CONDITION Stable. DISPOSITION To home. DISCHARGE INSTRUCTIONS 1. Please follow up with primary care physician within one to two weeks. 2. Follow up with Dr. Coulter for chronic kidney disease. 3. Follow up with Dr. Cornejo for her severe gastritis as well as cirrhosis. DISCHARGE MEDICATIONS Include: 1. Sodium bicarbonate 650 mg p.o. t.i.d. 2. Gabapentin 100 mg p.o. b.i.d. 3. Zofran 4 mg p.o. q.4-6 h. as needed for nausea, vomiting. A Unit #: [id number] #: [id number] Patient: YINKA BRADY prescription for #24 was given. 4. BuSpar 7.5 mg p.o. b.i.d. 5. Atenolol 50 mg p.o. daily. 6. Colace 100 mg p.o. daily. 7. I will not resume her Lasix at this time. This can be done on an outpatient basis either by her primary care physician or by Dr. Coulter with nephrology. 8. Hydralazine 100 mg p.o. b.i.d. 9. Iron supplement 324 mg p.o. b.i.d. 10. Pepcid 20 mg p.o. daily. 11. Multivitamin with minerals one tablet p.o. daily. 12. Tramadol 50 mg p.o. q.6 h. as needed for pain. 13. Folic acid 1 mg p.o. daily. 14. Thiamine 100 mg p.o. daily. 15. Levaquin 750 mg every other day starting tomorrow, 01/03/2017. A total prescription for #3 was given. I did give patient a prescription for all of these medications for a 30-day supply as patient tells me that she is not sure if she has any of her home medications or not. This dictation took 45 minutes to include coordinating care and patient education with both patient and her sisters. Dictated by... Jose Eduardo Hanna PA-C for Sandro Crane TD: 01/03/2017 20:36 JOB #: [id number] DISCHARGE SUMMARY Page 1 of 1 X X DISCHARGE SUMMARY
--- NOTE | ~2016-12-26 | CR127 ---
[facility] A Service [facility] RADIOLOGY TEXT RESULTS PATIENT: YINKA BRADY LOCATION: A 238-01 : [birth year] UNIT #: [id number] AGE: [address]: Ginna Ramirez MD SEX: F ORDER DR: [id number] [facility] [address] [facility] [place], [place] [address] [id number] MR#: [id number] Acc #: [id number] NAME: YINKA BRADY : 1950 SEX: F STUDY DATE/TIME: 01/01/2017 11:11 UNIT: [facility] ROOM: [facility] STUDY DESCRIPTION: CR Foot Complete Min 3 View Rt Attending Physician: Ginna Ramirez M.D. Ordering Physician: Ed Doctor [id number] [facility] Primary Care Physician: Parris Napier M.D. MEDICAL IMAGING REPORT This report is preliminary unless electronic signature is present EXAM Right foot, 3 views COMPARISON None INDICATIONS A 66-year-old female with right foot pain and swelling for 4 days. No known injury. FINDINGS Exam is limited by osteopenia. There is joint space narrowing involving the proximal interphalangeal joints of the second, third and fifth toes. There is mild osteophyte formation at the heads of the third through fifth metatarsals. Mild osteophyte formation is also noted at the first metatarsophalangeal joint. There is joint space narrowing at the second and third distal interphalangeal joints with osteophyte formation. No evidence of acute fracture or osseous destruction. The bones are anatomically aligned. There is moderate enthesopathy at both poles of the calcaneal tubercle with ossicles seen along expected location of the proximal plantar fascia, possibly within the substance of the plantar fascia and degenerative in nature. IMPRESSION No acute fracture, dislocation or osseous destruction. There are phad-im-pemhexyc degenerative changes as described in the body report. Dictated by... Scar Seymour M.D. THIS IS AN ELECTRONICALLY VERIFIED REPORT [facility] A Service [facility] RADIOLOGY TEXT RESULTS PATIENT: YINKA BRADY LOCATION: [facility] 238-01 : [birth year] UNIT #: [id number] AGE: [address]: Ginna Ramirez MD SEX: F ORDER DR: Scar Seymour M.D. at 01/02/2017 12:08 PM ANGUS/aquilino TD: 01/02/2017 00:46 JOB #: [id number] MEDICAL IMAGING REPORT Page 1 of 1 COPY
--- NOTE | ~2016-12-26 | CO ---
Unit #: [id number] #: [id number] Patient: YINKA BRADY [id number] [facility]. [place], [place] [address] [id number] I MR#: [id number] NAME: YINKA BRADY ROOM: 573 Age: 66 Sex: F Admission Date: 12/26/2016 : 1950 Attending Physician: Roxann Strauss M.D. Primary Care Physician: Parris Napier M.D. Consultation Date: 12/27/2016 CONSULTATION REPORT REASON FOR CONSULTATION 1. Pancreatitis. 2. Dysphagia. HISTORY OF PRESENT ILLNESS Ms. Kyle is a 66-year-old white female. The patient has been admitted with chronic recurrent relapsing alcoholic pancreatitis and along with that she is having pain in the upper abdomen radiating to the back along with nausea and vomiting. In addition, she was found to have worsening renal function. She does have a background history of chronic kidney disease and now has acute kidney injury along with severe metabolic acidosis with a CO2 of 10. The patient continues to imbibe alcohol on one excuse or another. In the emergency room, she was given Zofran and morphine as well as IV Rocephin and IV fluids. She is feeling much better today and is able to tolerate diet. PAST MEDICAL HISTORY Significant for history of recurrent chronic relapsing alcoholic pancreatitis, chronic kidney disease with creatinine of 2.8, diverticulosis, anxiety disorder, hypertension, hyperlipidemia, history of anemia of chronic disease, B12 deficiency. PAST SURGICAL HISTORY Previous surgery included resurgery of right shoulder surgery. MEDICATIONS At home included Ultram, atenolol, BuSpar, folic acid, thiamine, multivitamin, sodium bicarb, Lasix, and hydralazine. ALLERGIES She has no known drug allergies. SOCIAL HISTORY Lives alone in an apartment. Does drink alcohol and says she has cut down recently, but this is very hard to ascertain. She has never smoked. FAMILY HISTORY Significant for diabetes. No family history of colon, pancreatic cancer, or liver disease. REVIEW OF SYSTEMS Detailed review of organ system does reveal presence of upper abdominal pain along with nausea and vomiting. No history of fever, chills, or rigors. No history of headache, seizures, chest pain, or syncope. No Unit #: [id number] #: [id number] Patient: YINKA BRADY history of cough, expectoration, or hemoptysis. No history of dysuria, hematuria or pyuria. No history of focal seizures or extremity weakness. Rest of the review of organ systems is unremarkable. PHYSICAL EXAMINATION GENERAL: She is awake, alert, and oriented, and appears malnourished. VITAL SIGNS: Stable with a temperature of 98.3, pulse 63 per minute and regular, respiratory rate is 22, blood pressure 137/85. She weighs 108 pounds, which is close to her baseline weight. HEENT: She has moderate pallor. There being no icterus, lymphadenopathy, or peripheral edema. CARDIOVASCULAR: Normal heart sounds. No murmurs on auscultation. LUNGS: Reveal normal breath sounds. Good air entry. ABDOMEN: Soft and tender over the epigastric area. Liver and spleen are not palpable. Bowel sounds normal. DIAGNOSTIC STUDIES LABORATORY RESULTS: Shows a hemoglobin of 7.4 with normochromic normocytic red cell indices. The platelet count is 177, white count is 6.8. Serum chemistry shows a BUN and creatinine of 39 and 3.6. Albumin of 2.6. AST and ALT are normal, and bilirubin is also normal. The alkaline phosphatase is 207. Amylase and lipase are 224 and 517 respectively and that showing a declining trend. IMAGING STUDIES: The patient has had a CT scan of the abdomen and pelvis without contrast, and the latter shows presence of acute changes on top of the chronic pancreatitis. There being a pseudocyst about a centimeter in size in the anterior aspect of the head of the pancreas. CLINICAL IMPRESSION The patient with chronic recurrent left alcoholic pancreatitis; pseudocyst which is 1 cm in size; acute kidney injury on top of chronic kidney disease; continued alcohol abuse; anemia of chronic disease. The patient also has dysphagia to solids which is of recent origin; metabolic acidosis, which has now been corrected. MANAGEMENT PLAN Conservative and expectant management is needed, that the long-term prognosis depends on ability of the patient to achieve total and complete sobriety from alcohol use. An upper endoscopy and a possible dilation will be scheduled for tomorrow. The pros and cons of procedure, potential risks, and complications were discussed with the patient and she was reassured. Thank you for asking me to see this pleasant woman. I appreciate the consult. Dictated by... José Miguel Cornejo M.D. CIARRA/nic TD: 12/28/2016 01:11 JOB #: [id number] Marbella Douglass M.D. Unit #: [id number] #: [id number] Patient: YINKA BRADY CONSULTATION REPORT Page 1 of 1 X José Miguel Cornejo MD CONSULTATION REPORT
--- NOTE | ~2016-12-26 | HP ---
Unit #: [id number] #: [id number] Patient: YINKA BRADY [id number] [address] [place], [place] [address] [id number] MR#: [id number] NAME: YINKA BRADY. ROOM: Age: 66 Sex: F Admission Date: 12/26/2016 : 1950 Attending Physician: Bradford Marley M.D. Primary Care Physician: Parris Napier M.D. HISTORY AND PHYSICAL CHIEF COMPLAINT Dzekb-wl-gglcupo kidney injury, pancreatitis, metabolic acidosis. HISTORY OF PRESENT ILLNESS This 66-year-old female with hypertension, hyperlipidemia, recurrent relapsing alcohol-induced pancreatitis is admitted for pancreatitis. The patient was last admitted to this facility 12/03 through 12/12/2016 for a pancreatitis and acute kidney injury. Also was treated for ESBL UTI. She was in her usual state of health until yesterday when she developed increasing upper abdominal through generalized abdominal pain radiating to her chest and back associated with nausea and vomiting. She presents to this emergency department where labs are consistent with pancreatitis, kwcml-it-krhdrtg kidney injury and metabolic acidosis. The patient states that she did have some alcohol to drink recently but has not been abusing alcohol. Her sister tells me in private the patient has bed bugs, that she really is not able to take care of herself well in her own apartment. She has been having difficulty eating and experiencing dysphagia. In the ER, she was given morphine, Zofran, a liter of normal saline and Rocephin for a possible UTI. I have asked that further morphine, Zofran, further fluids, and an amp of bicarb be administered as well. PAST MEDICAL HISTORY 1. B12 deficiency. 2. Hyperlipidemia. 3. Hypertension. 4. History of anemia. 5. Diverticular disease. 6. Recurrent relapsing alcohol-induced pancreatitis. 7. Chronic kidney disease with a creatinine of 2.8 on 12/12/2016. 8. Diverticular disease. 9. Anxiety disorder. 10. Wrist surgery. 11. Right shoulder surgery. ALLERGIES No known drug allergies. HOME MEDICATIONS 1. Ultram. 2. Atenolol 50 mg daily. 3. BuSpar 7.5 mg b.i.d. 4. Folic acid 1 mg daily. Unit #: [id number] #: [id number] Patient: YINKA BRADY 5. Thiamine 100 mg daily. 6. Multivitamin daily. 7. Sodium bicarbonate 650 mg t.i.d. 8. Lasix 40 mg daily. 9. Hydralazine 75 mg b.i.d. The sister states the patient perhaps takes medicines once a day if at all. SOCIAL HISTORY The patient lives alone in an apartment. She only drinks occasionally, has cut down considerably in terms of her alcohol use. She is a lifelong nonsmoker. FAMILY HISTORY Diabetes mellitus. Negative for pancreatic disease. REVIEW OF SYSTEMS Notable for abdominal pain, nausea, back pain, hyperlipidemia, hypertension, pancreatitis, anemia, diverticular disease, history of alcohol abuse, anxiety and above-mentioned surgeries. All other systems were reviewed and are negative. PHYSICAL EXAMINATION VITAL SIGNS: Temperature 97.4, pulse 64, respirations 14, blood pressure 143/59, O2 saturation 100% on room air. GENERAL: Pleasant, thin uncomfortable-appearing 66-year-old female. HEENT: Eyes PERRLA. Extraocular muscles are intact. Pharynx benign. NECK: Supple without adenopathy or thyromegaly. CHEST: Clear. There are a few scabs/bites on the upper back. HEART: Normal S1, S2 without S3, S4 or murmur. ABDOMEN: Bowel sounds are present. Generalized abdominal tenderness, perhaps worse in the epigastric region without rebound or guarding. No definite hepatosplenomegaly or masses. EXTREMITIES: Mild edema. NEUROLOGIC: Awake, alert, oriented. Cranial nerves are intact. Equal strength throughout. DIAGNOSTIC STUDIES LABORATORY: Hematocrit 30.1, normal white count and platelet count. SMA-12 BUN 39, creatinine 3.6 up from a BUN of 41 and creatinine of 2.8. CO2 is 10 with an anion gap of 25. Calcium is 8.3. Bilirubin 2.1, AST 44, alkaline phosphatase 207. Amylase 224, lipase 517. Urinalysis positive leukocyte esterase with 10-25 wbc's, 1+ bacteria, moderate squamous cells making this a poor specimen. ASSESSMENT 1. Recurrent relapsing alcohol-induced pancreatitis. 2. Anion gap metabolic acidosis. 3. Enlbc-wn-rqjamgq kidney disease. 4. Bed bugs. 5. Essential hypertension. 6. Questionable urinary tract infection versus poor collection with history of ESBL. 7. Anxiety disorder. 8. Dysphagia. PLAN 1. IV fluids with bicarb and supportive treatment. Unit #: [id number] #: [id number] Patient: YINKA BRADY 2. CT scan of the abdomen. 3. Vitamins. 4. DVT and gastritis prophylaxis. 5. Social work to see. 6. Gastroenterology consultation. 7. Further workup depending on above. Dictated by Mrabella Douglass M.D. AML/cs TD: 12/26/2016 22:42 JOB #: [id number] HISTORY AND PHYSICAL Page 1 of 1 X Marbella Douglass MD X HISTORY AND PHYSICAL
--- NOTE | ~2016-12-26 | DS ---
Unit #: [id number] #: [id number] Patient: YINKA PALMA [id number] [address] [address] [id number] I MR#: [id number] NAME: YINKA PALMA. ROOM: 573 Age: 66 Sex: F Admission Date: 12/26/2016 : 1950 Discharge Date: 12/29/2016 Attending Physician: Ginna Ramirez M.D. Primary Care Physician: Parris Napier M.D. DISCHARGE SUMMARY PRINCIPAL DIAGNOSES 1. Recurrent alcohol-induced pancreatitis, now resolved. 2. Acute kidney injury of chronic kidney disease, stage 4: Discharge creatinine 2.2. 3. Severe metabolic acidosis secondary to uremia in combination with starvation ketosis. 4. Alcohol-induced gastritis and single antral ulcer of the stomach. 5. Pancreatic pseudocyst. 6. Iron deficiency anemia. 7. Anemia of chronic kidney disease, status post one unit of packed red blood cells. 8. Dysphagia without evidence of obstruction per EGD. Bedside swallow also normal. 9. Bed bug infestation. 10. Moderate protein malnutrition. 11. Continued cocaine abuse. 12. Hypokalemia. 13. Bilateral foot pain consistent with peripheral neuropathy: Ankle-brachial index currently pending. 14. Medical noncompliance. 15. Hyperlipidemia. 16. Hypertension. 17. Anxiety disorder. 18. Underweight. 19. Severe deconditioning. CONSULTANTS 1. Dr. Cornejo - Gastroenterology. 2. Dr. Alan Coulter - Nephrology. PROCEDURES 1. EGD on December 28, 2016, with findings of antral gastritis and single ulcer of the antrum of the stomach. No bleeding. Mild distal erosive esophagitis noted. No evidence of stricture. 2. CT scan of abdomen and pelvis without contrast on December 27, 2016, with acute on chronic pancreatitis. 10 mm collection anterior to the pancreas consistent with small pseudocyst. CLINICAL HISTORY/HOSPITAL COURSE Ms. Palma is a 66-year-old female who presents to the emergency department with complaints of abdominal pain. Please refer to H and P for further details. In the emergency department, lipase was elevated at 517. CT scan of the abdomen and pelvis also revealed findings of pancreatitis in addition to probable small pseudocyst. The patient was Unit #: [id number] #: [id number] Patient: YINKA PALMA found to have a creatinine of 3.6 as well. She was subsequently admitted. In regards to patient's pancreatitis, she was made NPO, placed on anti-emetics, pain control and IV fluids. Lipase began to trend down. Dr. Cornejo was consulted. With supportive care, on day of discharge lipase is now normal at 27. Patient is able to tolerate diet. She has been counseled regarding alcohol cessation. The patient also had complaints of dysphagia and underwent bedside swallow which was normal. She underwent EGD with findings as noted per Dr. Cornejo and she will be maintained on reflux medication. Dr. Coulter was consulted given patient's acute on chronic kidney disease. Upon presentation, she had significant associated metabolic acidosis and some mild nausea though this may be multifactorial. She was placed on bicarb containing IV fluids. Nephrotoxic medications were discontinued and on day of discharge creatinine is now down to 2.2. 24 hour urine studies are currently pending. 2.2 appears to be at her baseline since approximately October. She can follow up with Dr. Coulter as an outpatient. I am going to hold diuretics given her oral intake is poor. I will continue her on sodium bicarbonate. I will note patient is felt to be a poor candidate for hemodialysis and there is no plan to initiate hemodialysis even if this becomes more necessary down the road per discussion with Dr. Coulter. The patient also has significant anemia upon presentation but the hemoglobin is low at 7.4. She was transfused one unit of packed red blood cells and hemoglobin is now up to 8.2. She was found to be iron deficient. Vitamin B12 level last summer was greater than 1000. Thus, she is unlikely to be B12 deficient. I suspect her anemia is at least partially secondary to her chronic kidney disease as well and should benefit from Procrit as an outpatient if hemoglobin drops again. The patient did have some electrolyte abnormalities but these have been corrected. I will note urine drug screen was also positive for cocaine and patient continues to have intermittent use of illicit substances including cocaine, amphetamines, opiates and TCAs upon review in the past. The patient was seen by physical therapy who felt that she was significantly weak for subacute rehab. However, patient's polysubstance use and alcohol use makes her poor candidate. I discussed this with patient and she does not want to go to subacute rehab. In fact, she is refusing home health PT though I am going to try to arrange home health as well. The patient will be discharged home later today. DISCHARGE CONDITION Stable. DISCHARGE STATUS Discharge to home, hopefully with home health for PT and OT. DISCHARGE MEDICATIONS 1. Sodium bicarbonate 650 mg p.o. t.i.d. 2. BuSpar 7.5 mg b.i.d. 3. Atenolol 50 mg daily. 4. Hydralazine 75 mg b.i.d. Unit #: [id number] #: [id number] Patient: YINKA PALMA 5. Pepcid 20 mg p.o. b.i.d. 6. A daily multivitamin. 7. Tramadol 50 mg p.o. q.6 hours p.r.n. for pain. No prescription given. 8. Folic acid 1 mg daily. 9. Thiamine 100 mg daily. 10. Ferrous gluconate 324 mg p.o. p.o. b.i.d. with one refill. 11. Neurontin 100 mg p.o. b.i.d. with no refills. DISCHARGE INSTRUCTIONS The patient was instructed to follow a low salt diet. She can increase her activity as tolerated, to refrain from any further use of alcohol or any illicit substances. FOLLOWUP Patient will follow up with Dr. Alan Coulter in approximately two weeks. She should follow up with her primary care provider, Dr. Napier, in approximately one to two weeks as well. Time spent on discharge - 40 minutes. Dictated by... Roxann Strauss M.D. JACKIE/evangelista TD: 12/31/2016 07:22 JOB #: [id number] DISCHARGE SUMMARY Page 1 of 1 X Roxann Strauss MD DISCHARGE SUMMARY
--- NOTE | ~2016-12-26 | US140 ---
[facility] A Service of [facility] RADIOLOGY TEXT RESULTS PATIENT: YINKA BRADY LOCATION: [facility] [id number] : [birth year] UNIT #: [id number] AGE: [address]: Ginna Ramirez MD SEX: F ORDER DR: [id number] [facility] [address] [place], [place] [address] [id number] I MR#: [id number] Acc #: [id number] NAME: YINKA BRADY : 1950 SEX: F STUDY DATE/TIME: 01/01/2017 16:19 UNIT: [facility] ROOM: [facility] STUDY DESCRIPTION: US UE Veins Unilat or Ltd Stdy Attending Physician: Ginna Ramirez M.D. Ordering Physician: Ed Seth Cazares M.D. Primary Care Physician: Parris Napier M.D. MEDICAL IMAGING REPORT This report is preliminary unless electronic signature is present EXAM Unilateral right upper extremity venous Doppler, 01/01/2017 HISTORY Right arm pain and swelling for 3 days. PROCEDURE Schrader-scale imaging, color Doppler flow imaging and Doppler waveform analysis. FINDINGS There is normal color flow, compressibility and, where appropriate, respiratory phasicity and/or augmentation in the right upper extremity internal jugular, subclavian, axillary and brachial veins. However, while the superficial cephalic vein is normal, there is some occlusive thrombus in the basilic vein in the region of the antecubital fossa. It is probably nearly though incompletely occlusive. IMPRESSION Qootymwsq-hu-lfkyyxcdgfug thrombus in the basilic vein at the level of the antecubital fossa, positive for superficial venous thrombus but negative for deep venous thrombus. Dictated by... Daniel Dawkins M.D. THIS IS AN ELECTRONICALLY VERIFIED REPORT Daniel Dawkins M.D. at 01/02/2017 5:04 PM TEV/psc TD: 01/02/2017 00:16 [facility] A Service [facility] RADIOLOGY TEXT RESULTS PATIENT: YINKA BRADY LOCATION: [place] [address] : [birth year] UNIT #: [id number] AGE: [address]: Ginna Ramirez MD SEX: F ORDER DR: JOB #: [id number] MEDICAL IMAGING REPORT Page 1 of 1 COPY
--- NOTE | ~2016-12-26 | CO ---
Unit #: [id number] #: [id number] Patient: YINKA BRADY [id number] [address] [address] [id number] I MR#: [id number] NAME: YINKA BRADY ROOM: 573 Age: 66 Sex: F Admission Date: 12/26/2016 : 1950 Attending Physician: Roxann Strauss M.D. Primary Care Physician: Parris Napier M.D. Consultation Date: 12/27/2016 CONSULTATION REPORT REASON FOR CONSULTATION Elevated creatinine level. HISTORY OF PRESENT ILLNESS The patient is a 66-year-old white female with known history of chronic alcohol use, her recurrent pancreatitis attributed to chronic drinking, hypertension, hyperlipidemia, admission creatinine level of 3.6 which is slowly improving to 2.8 today, baseline creatinine is around 2 to 2.5. The patient has not needed dialysis in the past. Does not admit to using NSAIDs. No recent IV contrast. No noted nephrotoxic antibiotics. The patient's CT scan reveals pancreatitis with secondary possible pseudocyst. Patient comes in with abdominal pain and recurrent pancreatitis. PAST MEDICAL HISTORY Significant for: 1. Hypertension. 2. Hyperlipidemia. 3. Diverticular disease. 4. Anxiety disorder. PAST SURGICAL HISTORY Right shoulder surgery. ALLERGIES No known drug allergies. SOCIAL HISTORY Patient continues to drink. Lives at home. FAMILY HISTORY Unremarkable for end-stage renal disease. REVIEW OF SYSTEMS HEART: No chest pain. RESPIRATORY: No cough or expectoration. GASTROINTESTINAL: As above. GENITOURINARY: No hematuria, no dysuria. DIAGNOSTIC STUDIES LABORATORY: WBC 6.8, hemoglobin 7.4, hematocrit 22.8, platelets 177. Sodium 136, potassium 3.5, chloride 103, CO2 is 17, BUN 35, creatinine 2.8 Unit #: [id number] #: [id number] Patient: YINKA BRADY from 3.6 on admission, total bilirubin 1.2. IMPRESSION 1. Acute kidney injury, likely hemodynamic-related increase in creatinine, improving with IV hydration. No acute need for dialysis. 2. Chronic kidney disease, stage 3 to 4. Patient has underlying chronic kidney disease, possibly secondary to hypertensive nephrosclerosis. She is not a good candidate for chronic hemodialysis with her ongoing history of drinking and poor functional status at home. 3. Recurrent pancreatitis. 4. Possible pancreatic pseudocyst. 5. Hypertension. 6. History of ESBL urinary tract infection. 7. Anxiety disorder. We will follow the patient with you. Dictated by... Sandro Teresa TD: 12/27/2016 16:44 JOB #: [id number] CONSULTATION REPORT Page 1 of 1 X Alan Coulter MD X CONSULTATION REPORT
--- NOTE | ~2016-12-26 | CT4 ---
[facility] A Service of [facility] RADIOLOGY TEXT RESULTS PATIENT: YINKA BRADY LOCATION: [facility] [id number] : [birth year] UNIT #: [id number] AGE: [address]: Ginna Ramirez MD SEX: F ORDER DR: [id number] [facility] [address] [place], [place] [address] [id number] I MR#: [id number] Acc #: [id number] NAME: YINKA BRADY. : 1950 SEX: F STUDY DATE/TIME: 12/27/2016 0:19 UNIT: CEDOF ROOM: 75350 STUDY DESCRIPTION: CT Abd and Pelv Wo Cont Attending Physician: Marbella Douglass M.D. Ordering Physician: Bradford Marley M.D. Primary Care Physician: Parris Napier M.D. MEDICAL IMAGING REPORT This report is preliminary unless electronic signature is present EXAM CT abdomen and pelvis without contrast. INDICATION Pancreatitis. Generalized abdominal pain for the past [address] of the abdomen and pelvis. This CT exam was performed with one or more of the following radiation dose reduction techniques: automatic exposure control, adjustment of mA and/or kV according to patient size, and iterative reconstruction. COMPARISON 11/20/2016 FINDINGS Small bilateral pleural effusions are new. There is bibasilar atelectasis. Cardiomegaly. ABDOMEN WITHOUT CONTRAST: Mild hepatic steatosis. Sequela of chronic pancreatitis. There is peripancreatic stranding minimally increased from the previous study. There is a 10 mm collection anterior to the pancreatic body probably represent a small pseudocyst. There is a small amount of perihepatic and perisplenic fluid. The spleen and kidneys unremarkable. 1.5 cm indeterminate left adrenal nodule is stable. The bowel loops are nondilated. Left-sided colonic diverticula. No evidence for active complication. PELVIS WITHOUT CONTRAST: There is a small amount of fluid in the pelvis. No aggressive-appearing bone lesion. [facility] A Service of [facility] RADIOLOGY TEXT RESULTS PATIENT: YINKA BARDY LOCATION: [facility] [id number] : [birth year] UNIT #: [id number] AGE: [address]: Ginna Ramirez MD SEX: F ORDER DR: IMPRESSION 1. Mild tkbtb-hv-blgslbi pancreatitis. Acute component is slightly increased from 11/20/2016. 2. 10 mm collection anterior to the pancreas, favored to represent a small pseudocyst. 3. A small amount of fluid scattered throughout the abdomen and pelvis is new and there are new small bilateral pleural effusions. 4. Other findings detailed above. Dictated by... Maximus Sibley M.D. THIS IS AN ELECTRONICALLY VERIFIED REPORT Maximus Sibley M.D. at 12/31/2016 7:30 AM MECCAD/karolina TD: 12/27/2016 02:14 JOB #: [id number] MEDICAL IMAGING REPORT Page 1 of 1 COPY
[2016-12-26 17:31] LABS: BASOPHIL# 0.1 X10e3 (0-0.3); BASOPHIL% 0.9 % (0-2.5); EOSINOPHIL% 0.2 % (0.0-7.0); HEMATOCRIT 30.1 % (35.0-45.0); HEMOGLOBIN 9.3 gm/dL (12.0-16.0); LYMPHOCYTE% 10.6 % (17.0-45.0); MEAN CELL VOLUME 99.9 FL (83-96); MEAN CORPUSCULAR HEMOGLOBIN 30.8 PG (28-34); MEAN CORPUSCULAR HGB CONC 30.8 g/dL (30-36); MEAN PLATELET VOLUME 10.4 FL (6.5-11.5); MONOCYTE# 1.1 X10e3 (0-1.0); MONOCYTE% 11.7 % (3.0-12.0); NEUTROPHIL% 76.6 % (40-75); PLATELET COUNT 272 X10e3 (140-420); RED BLOOD COUNT 3.01 X10e (3.90-5.30); RED CELL DISTRIBUTION WIDTH 15.8 % (11.0-15.5); WHITE BLOOD COUNT 9.1 X10e3 (4.0-10.5)
[2016-12-26 17:34] LABS: DIFF IND NO
[2016-12-26 18:09] LABS: ALBUMIN SERUM 3.6 g/dL (3.5-5.0); BILIRUBIN, DIRECT 0.1 mg/dL (0.0-0.2); BILIRUBIN,TOTAL 2.1 mg/dL (0.2-2.0); BUN/CREATININE RATIO 10.83; CALCIUM SERUM 8.3 mg/dL (8.4-10.2); CREATININE SERUM 3.6 mg/dL (0.6-1.4); GLOM FILT RATE Estimated 12.4 mL/min (>60); POTASSIUM 4.7 mmol/L (3.5-5.1); PROTEIN TOTAL SERUM 6.9 g/dL (6.0-8.3)
[2016-12-26 18:42] LABS: URINE SOURCE CLEAN CATCH
[~2016-12-26 18:42] MED LIST changes: +APRESOLINE PO; +FUROSEMIDE40 MG PO; +SODIUM BICARBO650 MG PO
[2016-12-26 18:51] LABS: URINE APPEARANCE CLOUDY; URINE BILIRUBIN NEG (NEG); URINE BLOOD 3+ (NEG); URINE COLOR YELLOW; URINE GLUCOSE NEG (NEG); URINE KETONE 3+ (NEG); URINE LEUKOCYTE ESTERASE 1+ (NEG); URINE NITRATE NEG (NEG); URINE PROTEIN 1+ (NEG); URINE SPECIFIC GRAVITY 1.012 (1.003-1.035)
[2016-12-26 18:54] LABS: CULTURE INDICATED? YES; URBCS1 AUWI 100-200 /[HPF] (0-2); URINE BACTERIA AUWI 1+ (NEGATIVE); URINE SQUAMOUS EPITHELIAL CELL MOD /[HPF]
[2016-12-26 23:20] LABS: ARTERIAL BLD GAS O2 SATURATION 96.2 % (90.0-100.0); ARTERIAL BLOOD GAS ALLEN TEST NORMAL; ARTERIAL BLOOD GAS ART SITE RIGHT RADIAL; ARTERIAL BLOOD GAS CARBOXY HB 0.5 %sat (0.0-9.0); ARTERIAL BLOOD GAS DELIVERY ROOM AIR; ARTERIAL BLOOD GAS PCO2 20.9 mmHg (35.0-45.0); ARTERIAL BLOOD GAS PO2 95.9 mmHg (80.0-100); ARTERIAL BLOOD GAS pH 7.289 (7.350-7.450); ARTERIAL DRAW? YES
[2016-12-27 08:40] LABS: BASOPHIL% 0.5 % (0-2.5); EOSINOPHIL# 0.1 X10e3 (0-0.7); EOSINOPHIL% 2.2 % (0.0-7.0); HEMATOCRIT 22.8 % (35.0-45.0); LYMPHOCYTE# 0.6 X10e3 (1.0-3.5); LYMPHOCYTE% 8.3 % (17.0-45.0); MEAN CORPUSCULAR HEMOGLOBIN 31.4 PG (28-34); MEAN CORPUSCULAR HGB CONC 32.6 g/dL (30-36); MEAN PLATELET VOLUME 9.9 FL (6.5-11.5); MONOCYTE# 1.1 X10e3 (0-1.0); MONOCYTE% 16.9 % (3.0-12.0); NEUTROPHIL# 4.9 X10e3 (1.5-7.1); NEUTROPHIL% 72.1 % (40-75); PLATELET COUNT 177 X10e3 (140-420); RED BLOOD COUNT 2.37 X10e (3.90-5.30); WHITE BLOOD COUNT 6.8 X10e3 (4.0-10.5)
[2016-12-27 08:51] LABS: HEMOGLOBIN 7.4 gm/dL (12.0-16.0)
[2016-12-27 08:52] LABS: DIFF IND YES; MEAN CELL VOLUME 96.2 FL (83-96)
[2016-12-27 08:56] LABS: ALBUMIN SERUM 2.6 g/dL (3.5-5.0); BILIRUBIN,TOTAL 1.2 mg/dL (0.2-2.0); BUN/CREATININE RATIO 12.5; CALCIUM SERUM 7.2 mg/dL (8.4-10.2); CREATININE SERUM 2.8 mg/dL (0.6-1.4); GLOM FILT RATE Estimated 16.8 mL/min (>60); POTASSIUM 3.5 mmol/L (3.5-5.1); PROTEIN TOTAL SERUM 5.2 g/dL (6.0-8.3)
[2016-12-27 11:17] LABS: IRON SERUM 37 ug/dL (28-170); TOTAL IRON BINDING CAPACITY 130 ug/dL (269-535); TRANSFERRIN 93 mg/dL (192-382); TRANSFERRIN SATURATION 28 % (20-50)
[2016-12-27 11:21] LABS: ALCOHOL BLOOD <5 mg/dL (0)
[2016-12-27 11:31] LABS: ANISOCYTOSIS SL; PLATELET ESTIMATE NORMAL (NORMAL); POIKILOCYTOSIS SL; RBC NORMAL YES
[2016-12-27 15:26] LABS: BUN/CREATININE RATIO 11.42; CALCIUM SERUM 7.4 mg/dL (8.4-10.2); CREATININE SERUM 2.8 mg/dL (0.6-1.4); GLOM FILT RATE Estimated 16.8 mL/min (>60); POTASSIUM 3.5 mmol/L (3.5-5.1)
[2016-12-27 20:21] LABS: AMPHETAMINE NEG (NEG); BARBITURATES NEG (NEG); BENZODIAZEPINES NEG (NEG); COCAINE POS (NEG); MARIJUANA NEG (NEG); OPIATES POS (NEG); TRICYCLIC ANTIDEPRESSANTS NEG (NEG); U METHADONE NEG (NEG)
[2016-12-28 08:04] LABS: HEMATOCRIT 23.7 % (35.0-45.0); HEMOGLOBIN 7.8 gm/dL (12.0-16.0); MEAN CORPUSCULAR HEMOGLOBIN 31.5 PG (28-34); MEAN CORPUSCULAR HGB CONC 32.8 g/dL (30-36); MEAN PLATELET VOLUME 10.8 FL (6.5-11.5); RED BLOOD COUNT 2.47 X10e (3.90-5.30); RED CELL DISTRIBUTION WIDTH 14.7 % (11.0-15.5); WHITE BLOOD COUNT 6.9 X10e3 (4.0-10.5)
[2016-12-28 08:31] LABS: ALBUMIN SERUM 2.6 g/dL (3.5-5.0); BILIRUBIN,TOTAL 0.7 mg/dL (0.2-2.0); BUN/CREATININE RATIO 11.25; CALCIUM SERUM 7.5 mg/dL (8.4-10.2); CREATININE SERUM 2.4 mg/dL (0.6-1.4); GLOM FILT RATE Estimated 20.2 mL/min (>60); POTASSIUM 3.5 mmol/L (3.5-5.1); PROTEIN TOTAL SERUM 5.3 g/dL (6.0-8.3)
[2016-12-28 14:03] LABS: IRON SERUM 19 ug/dL (28-170); TOTAL IRON BINDING CAPACITY 128 ug/dL (269-535); TRANSFERRIN 91 mg/dL (192-382); TRANSFERRIN SATURATION 15 % (20-50)
[2016-12-29 05:12] LABS: HEMATOCRIT 27.7 % (35.0-45.0); HEMOGLOBIN 9.2 gm/dL (12.0-16.0); MEAN CELL VOLUME 94.3 FL (83-96); MEAN CORPUSCULAR HEMOGLOBIN 31.4 PG (28-34); MEAN CORPUSCULAR HGB CONC 33.3 g/dL (30-36); MEAN PLATELET VOLUME 10.7 FL (6.5-11.5); RED BLOOD COUNT 2.94 X10e (3.90-5.30); RED CELL DISTRIBUTION WIDTH 14.9 % (11.0-15.5); WHITE BLOOD COUNT 8.3 X10e3 (4.0-10.5)
[2016-12-29 06:33] LABS: ALBUMIN SERUM 2.5 g/dL (3.5-5.0); BILIRUBIN,TOTAL 0.9 mg/dL (0.2-2.0); BUN/CREATININE RATIO 12.27; CALCIUM SERUM 7.6 mg/dL (8.4-10.2); CREATININE SERUM 2.2 mg/dL (0.6-1.4); GLOM FILT RATE Estimated 22.5 mL/min (>60); POTASSIUM 3.4 mmol/L (3.5-5.1)
[2016-12-30 01:00] LABS: URINE CREATININE 145.4 mg/dL
[2016-12-30 01:01] LABS: BODY SURFACE AREA 1.49
[2016-12-30 06:54] LABS: BUN/CREATININE RATIO 11.81; CREATININE SERUM 2.2 mg/dL (0.6-1.4); GLOM FILT RATE Estimated 22.5 mL/min (>60); POTASSIUM 3.8 mmol/L (3.5-5.1)
[2017-01-01 10:55] LABS: HEMATOCRIT 27.1 % (35.0-45.0); HEMOGLOBIN 8.8 gm/dL (12.0-16.0); MEAN CELL VOLUME 96.4 FL (83-96); MEAN CORPUSCULAR HEMOGLOBIN 31.3 PG (28-34); MEAN CORPUSCULAR HGB CONC 32.4 g/dL (30-36); RED BLOOD COUNT 2.81 X10e (3.90-5.30); RED CELL DISTRIBUTION WIDTH 14.8 % (11.0-15.5); WHITE BLOOD COUNT 8.4 X10e3 (4.0-10.5)
[2017-01-01 11:50] LABS: ALBUMIN SERUM 2.5 g/dL (3.5-5.0); BILIRUBIN,TOTAL 1.1 mg/dL (0.2-2.0); BUN/CREATININE RATIO 13.18; CALCIUM SERUM 8.3 mg/dL (8.4-10.2); CREATININE SERUM 2.2 mg/dL (0.6-1.4); GLOM FILT RATE Estimated 22.5 mL/min (>60); POTASSIUM 4.2 mmol/L (3.5-5.1); PROTEIN TOTAL SERUM 5.2 g/dL (6.0-8.3)
[2017-01-02 07:15] LABS: HEMATOCRIT 26.2 % (35.0-45.0); HEMOGLOBIN 8.6 gm/dL (12.0-16.0); MEAN CELL VOLUME 96.4 FL (83-96); MEAN CORPUSCULAR HEMOGLOBIN 31.5 PG (28-34); MEAN CORPUSCULAR HGB CONC 32.7 g/dL (30-36); MEAN PLATELET VOLUME 10.5 FL (6.5-11.5); RED BLOOD COUNT 2.71 X10e (3.90-5.30); WHITE BLOOD COUNT 8.2 X10e3 (4.0-10.5)
[2017-01-02 08:11] LABS: BUN/CREATININE RATIO 13.18; CALCIUM SERUM 8.2 mg/dL (8.4-10.2); CREATININE SERUM 2.2 mg/dL (0.6-1.4); GLOM FILT RATE Estimated 22.5 mL/min (>60); MAGNESIUM 1.5 mg/dL (1.6-3.0); POTASSIUM 4.3 mmol/L (3.5-5.1)
[2017-01-02] MEDS ORDERED: NEURONTIN100 MG PO (13:49)
[2017-01-02] MEDS ORDERED: ZOFRAN PO (13:50)
[2017-01-02] MEDS ORDERED: DOCUSATE SODIU100 MG PO (13:50)
[2017-01-02] MEDS ORDERED: FERROUS GLUCON324 M1 PO (13:51)
[2017-01-02] MEDS ORDERED: PEPCID AC20 M2 PO (13:52)
[2017-01-02] MEDS ORDERED: LEVAQUIN750 M1 PO (13:57)
[2017-01-02] MEDS ORDERED: COLCRYS0.6 M2 PO (13:58)
[2017-01-24] MEDS ORDERED: TRAMADOL HCL50 M1 PO (19:52)
== END 2017-01-02 14:58 | disposition home health service (06) | DRG 439 ==
LOC: CED 18:42 → CEDOF 22:40 → C5C 12-27 08:32 → C2A 01-01 00:15
PROVIDERS: Emergency Medicine; Internal Medicine; Internal Medicine Gastroenterology; Internal Medicine Nephrology; Physician Assistant Medical
PROC: 0DB78ZX Excision of Stomach, Pylorus, Via Natural or Artificial Opening Endoscopic, Diagnostic (ICD-10-PCS; principal; 2016-12-28 15:32)
PROC: 30233N1 Transfusion of Nonautologous Red Blood Cells into Peripheral Vein, Percutaneous Approach (ICD-10-PCS; 2016-12-28 15:32)
DX: K85.20 Alcohol induced acute pancreatitis without necrosis or infection (principal); K86.3 Pseudocyst of pancreas; N17.9 Acute kidney failure, unspecified; E87.2 Acidosis; E44.0 Moderate protein-calorie malnutrition; R13.10 Dysphagia, unspecified; G62.9 Polyneuropathy, unspecified; I80.8 Phlebitis and thrombophlebitis of other sites; N18.4 Chronic kidney disease, stage 4 (severe); K86.0 Alcohol-induced chronic pancreatitis; I12.9 Hypertensive chronic kidney disease with stage 1 through stage 4 chronic kidney disease, or unspecified chronic kidney disease; E78.5 Hyperlipidemia, unspecified; K29.20 Alcoholic gastritis without bleeding; D50.9 Iron deficiency anemia, unspecified; D63.1 Anemia in chronic kidney disease; F14.10 Cocaine abuse, uncomplicated; T14.8 Other injury of unspecified body region; E87.6 Hypokalemia; M79.672 Pain in left foot; M79.671 Pain in right foot; Z91.19 Patient's noncompliance with other medical treatment and regimen; F41.9 Anxiety disorder, unspecified; F10.10 Alcohol abuse, uncomplicated; Z71.41 Alcohol abuse counseling and surveillance of alcoholic
CPT/HCPCS: 36415; 36600; 73630; 74176; 80048; 80053; 80076; 80307; 81003; 82150; 82575; 82728; 82803; 83540; 83550; 83690; 83735; 84550; 85025; 85027; 85730; 86850; 86900; 86901; 86923; 87077; 87086; 92610; 93922; 93971; 96361; 96374; 96375; 97116; 97163; 97166; 97530; 97535; 99285; G0480; G8978-GP; G8979-GP; G8980-GP; G8987-GO; G8988-GO; G8989-GO; G8996-GN; G8997-GN; G8998-GN; J0696; J0885; J1956; J2185; J2250; J2270; J2405; J2765; J2916; J3411; P9016

== ENCOUNTER 2017-01-15 11:53 | Inpatient (IN) | payer MEDICARE, OTHER ==
--- NOTE | ~2017-01-15 | DS ---
Unit #: [id number] #: [id number] Patient: YINKA BRADY [id number] [address] [address] [id number] I MR#: [id number] NAME: YINKA BRADY ROOM: 568 Age: 66 Sex: F Admission Date: 01/16/2017 : 1950 Discharge Date: Attending Physician: Aylin Jeffries M.D. Primary Care Physician: Parris Napier M.D. DISCHARGE SUMMARY DISCHARGE DIAGNOSES 1. Acute diastolic heart failure present on admission. 2. Toxic metabolic encephalopathy. 3. Urinary tract infection. Cultures negative. 4. Chronic kidney disease stage 4. 5. Hypokalemia. 6. Hypermagnesemia. 7. Hypothyroidism. 8. Moderate protein malnutrition. 9. Recent history of Clostridium difficile. Currently, the patient is on Flagyl. 10. History of pancreatitis. 11. History of pancreatic pseudocyst. 12. Chronic anemia. 13. History of extended spectrum beta lactamase urinary tract infection. 14. Hypertension. 15. Hyperlipidemia. 16. History of alcohol abuse. 17. Chronic pain on opiates. 18. Severe hepatic steatosis. 19. History of nondisplaced fracture of L2, L3 and L4. 20. B12 deficiency. 21. Metabolic acidosis. CONSULTATION Dr. Viera. PROCEDURES None. DIAGNOSTIC STUDIES LABORATORY: Sodium 138, potassium 3.4, creatinine 1.6, magnesium 1.4, calcium 7.5. Urine culture negative. WBC 6.2, hemoglobin 7.9, platelets 331. Blood cultures negative. Free T4 1.30, free T3 2.0. B12 1,219, folate 23. TSH 14.47, IMAGING: CAT scan of the head: No acute changes. CARDIOVASCULAR: Echocardiogram shows ejection fraction 55%. Mild stenosis present. Right ventricular systolic pressure 35. Mild pericardial effusion present. ALLERGIES None. Unit #: [id number] #: [id number] Patient: YINKA BRADY DISCHARGE MEDICATION 1. Sodium bicarbonate 650 p.o. three times daily. 2. Magnesium oxide 400 mg p.o. b.i.d. 3. Phenergan 25 mg three times daily. 4. Coreg 12.5 mg p.o. b.i.d. 5. Ferrous gluconate 324 mg p.o. b.i.d. 6. Flagyl 500 mg three times daily. Complete home medication course. 7. Pepcid 20 mg p.o. daily. 8. Florastor 250 mg p.o. daily. 9. Multivitamin one tablet daily. 10. Synthroid 25 mcg daily. 11. Folic acid 1 mg daily. 12. Thiamine 100 mg daily. ASSESSMENT AND PLAN 1. Toxic metabolic encephalopathy with urinary tract infection, currently resolved. 2. Acute diastolic heart failure. Patient seen by Cardiology. The patient was diuresed with Lasix. The patient is not on HÉCTOR or ARB because of chronic kidney disease stage 4. 3. Hypokalemia. Replace with p.o. potassium. 4. Hypermagnesemia. Replace with IV and p.o. magnesium. 5. Hypothyroidism, started on Synthroid 25 mcg p.o. daily. 6. Moderate protein malnutrition. The patient was given Ensure. Continue with high protein diet at home. 7. Anemia. No active bleeding. Most likely, iron deficiency. 8. Chronic kidney disease stage 4, stable. Discharge home with home health. Follow with family physician in one week's time. Follow with Dr. Viera on March 18. Discussed with daughter in detail at length. Patient at high risk of readmission if she drinks alcohol. Increase p.o. diet at home. Discharge time taken is 32 minutes. Dictated by... Sandro Santiago/michelle TD: 01/17/2017 12:30 JOB #: [id number] DISCHARGE SUMMARY Page 1 of 1 X Aylin Jeffries MD X DISCHARGE SUMMARY
--- NOTE | ~2017-01-15 | EKG ---
PATIENT: YINKA BRADY UNIT #: [id number] Ventricular Rate: 73 BPM Atrial Rate: 73 BPM P-R Interval: 202 ms QRS Duration: 78 ms Q-T Interval: 446 ms QTC Calculation(Bezet): 491 ms P [place]: 64 degrees Calculated R [place]: 40 degrees Calculated T [place]: 81 degrees Diagnosis Line: Normal sinus rhythm Diagnosis Line: Nonspecific T wave abnormality Diagnosis Line: Abnormal ECG Diagnosis Line: When compared with ECG of 20-NOV-2016 15:31, Diagnosis Line: Nonspecific T wave abnormality, worse in Diagnosis Line: Anterolateral leads Diagnosis Line: Confirmed by SHAHRAM DAVENPORT MD ([id number]) on Diagnosis Line: 01/15/2017 10:29:03 PM INTERPRETING : RAMÓN
--- NOTE | ~2017-01-15 | CT71 ---
[facility] A Service of [facility] RADIOLOGY TEXT RESULTS PATIENT: YINKA BRADY LOCATION: [facility] : [birth year] UNIT #: [id number] AGE: [address]: Rajat Jackson MD SEX: F ORDER DR: [id number] [facility] [address] [place], [place] [address] [id number] E MR#: [id number] Acc #: [id number] NAME: YINKA BRADY : 1950 SEX: F STUDY DATE/TIME: 01/15/2017 13:03 UNIT: [facility] ROOM: STUDY DESCRIPTION: CT Head Wo Contrast Attending Physician: Rajat Jackson M.D. Ordering Physician: Rajat Jackson M.D. Primary Care Physician: Parris Napier M.D. MEDICAL IMAGING REPORT This report is preliminary unless electronic signature is present EXAM Head CT without contrast HISTORY Patient not eating and drinking well for the past 2 weeks. Hallucinations for the past 2 days. TECHNIQUE Axial images were obtained without contrast and compared with 08/09/2006. This CT examination was performed with one or more of the following radiation dose reduction techniques: automatic exposure control, adjustment of mA and/or kV according to patient size, and iterative reconstruction. FINDINGS Since the previous examination, no changes are noted. Mild generalized atrophy is seen. There is no evidence of mass lesion, hemorrhage or edema. No midline shift is noted. Extraaxial structures are unremarkable. IMPRESSION Atrophy. No acute findings. The atrophy has increased since the previous scan in 2005. Dictated by... Tarik Aldridge M.D. THIS IS AN ELECTRONICALLY VERIFIED REPORT Tarik Aldridge M.D. at 01/15/2017 5:02 PM JINGF/kris TD: 01/15/2017 14:21 JOB #: [id number] [facility] A Service [facility] RADIOLOGY TEXT RESULTS PATIENT: YINKA BRADY LOCATION: [facility] : [birth year] UNIT #: [id number] AGE: [address]: Rajat Jackson MD SEX: F ORDER DR: MEDICAL IMAGING REPORT Page 1 of 1 COPY
--- NOTE | ~2017-01-15 | CR72 ---
[facility] A Service of [facility] RADIOLOGY TEXT RESULTS PATIENT: YINKA BRADY LOCATION: [facility] [address] : [birth year] UNIT #: [id number] AGE: [address]: Aylin Jeffries MD SEX: F ORDER DR: [id number] [facility] [address] [place], [place] [address] [id number] I MR#: [id number] Acc #: [id number] NAME: YINKA BRADY : 1950 SEX: F STUDY DATE/TIME: 01/15/2017 11:51 UNIT: [facility] ROOM: [facility] STUDY DESCRIPTION: CR Chest Single View Portable Attending Physician: Shannen Rascon M.D. Ordering Physician: Jose Flores Primary Care Physician: Parris Napier M.D. MEDICAL IMAGING REPORT This report is preliminary unless electronic signature is present EXAM Chest, portable. DATE OF EXAM 01/15/2017, 1151 hours. CLINICAL HISTORY Mental status changes with shortness of air today. History of pancreatitis. COMPARISON 12/09/2016 FINDINGS Single upright view demonstrates mild enlargement of the cardiac silhouette which could represent cardiomegaly or pericardial fluid. There is mild to moderate bilateral interstitial change in the lungs with mild to moderate bilateral dependent effusions new from 12/09/2016. Findings suggest the presence of mild to moderate congestive heart failure which is new from 12/09/2016. STAT * RESULT Dictated by... Neeru Chen M.D. THIS IS AN ELECTRONICALLY VERIFIED REPORT Neeru Chen M.D. at 01/16/2017 9:02 AM IGNACIA/louis [facility] A Service of [facility] RADIOLOGY TEXT RESULTS PATIENT: YINKA BRADY LOCATION: [facility] 568 : [birth year] UNIT #: [id number] AGE: [address]: Aylin Jeffries MD SEX: F ORDER DR: TD: 01/15/2017 19:05 JOB #: [id number] MEDICAL IMAGING REPORT Page 1 of 1 COPY
--- NOTE | ~2017-01-15 | DS ---
Unit #: [id number] #: [id number] Patient: YINKA BRADY [id number] [address] [address] [id number] I MR#: [id number] NAME: YINKA BRADY ROOM: 568 Age: 66 Sex: F Admission Date: 01/16/2017 : 1950 Discharge Date: 01/17/2017 Attending Physician: Aylin Jeffries M.D. Primary Care Physician: Parris Napier M.D. DISCHARGE SUMMARY REVISED REPORT ADDENDUM Discussed with the daughter at length. The patient will be discharged home with home health. Please add Lasix 20 mg p.o. daily to the discharge medications. Dictated by... Sandro Santiago/thi TD: 01/17/2017 14:59 JOB #: [id number] DISCHARGE SUMMARY Page 1 of 1 X Aylin Jeffries MD X DISCHARGE SUMMARY
--- NOTE | ~2017-01-15 | HP ---
Unit #: [id number] #: [id number] Patient: YINKA BRADY [id number] [address] [facility] [place]. [place], [place] [address] [id number] MR#: [id number] NAME: YINKA BRADY ROOM: Age: 66 Sex: F Admission Date: 01/15/2017 : 1950 Attending Physician: Rajat Garcia M.D. Primary Care Physician: Parris Napier M.D. HISTORY AND PHYSICAL CHIEF COMPLAINT Altered mental status. HISTORY OF PRESENT ILLNESS The patient is a 66-year-old female with past medical history of polysubstance abuse - including alcohol abuse, recurrent pancreatitis, chronic kidney disease, pancreatic pseudocyst, anemia, hypertension, hyperlipidemia, diverticular disease. She presented to the emergency department for evaluation of the above. Of note, the patient was hospitalized at [facility] December 26 through January 02, 2017 for pancreatitis and acute on chronic kidney disease. She underwent EGD during that admission that showed an ulcer in the antrum. The patient has been staying with her sister since discharge. She has apparently not had any alcohol. She has had a couple of days of worsening confusion. Sister states that she has been saying things that do not make sense. Today, she started having visual hallucinations. She locked herself out of the house. She has not had any fever. She has had a nonproductive cough, as well as increasing shortness of breath. She has also had decreased appetite with no vomiting. She has had diarrhea and was recently diagnosed with C. diff. She is currently on Flagyl. In the emergency department initial pulse and blood pressure were 74 and 141/72 respectively. Oxygen saturation was 99% on room air. Chest x-ray showed findings concerning for congestive heart failure. BNP is 2,770. She also has findings concerning for urinary tract infection. She was given 100 mg of Macrobid, as well as 40 mg of Lasix in the emergency department. She is being admitted to [facility] for evaluation and further treatment. PAST MEDICAL HISTORY 1. History of pancreatitis. 2. Chronic kidney disease. The patient has seen Dr. Alan Coulter in the past, stage 4, with a discharge creatinine of 2.2. 3. Pancreatic pseudocyst. 4. Chronic anemia. 5. Hypertension. 6. Hyperlipidemia. 7. Diverticular disease. 8. C. diff. diagnosed January 07. Currently on Flagyl. PAST SURGICAL HISTORY Unit #: [id number] #: [id number] Patient: YINKA BRADY 1. Wrist surgery. 2. Right shoulder surgery. 3. EGD. SOCIAL HISTORY The patient is currently living with her sister. She has a history of alcohol abuse but has not had any alcohol since discharge from the hospital January 02, 2017. She denies illicit drug use, but tox screen was positive for cocaine on December 27, 2016. She typically walks without assistance. FAMILY HISTORY Notable for diabetes. ALLERGIES No known allergies. HOME MEDICATIONS 1. Tramadol 50 mg q.6 hours p.r.n. 2. Atenolol 50 mg daily. 3. BuSpar 7.5 mg b.i.d. 4. Folic acid 1 mg b.i.d. 5. Thiamine 100 mg daily. 6. Multivitamin daily. 7. Sodium bicarb 650 mg t.i.d. 8. Apresoline 100 mg b.i.d. 9. Neurontin 100 mg b.i.d. 10. Iron 324 mg b.i.d. 11. Pepcid 20 mg daily. 12. Colchicine 0.6 mg daily. 13. Phenergan 25 mg t.i.d. p.r.n. 14. Metronidazole 500 mg t.i.d. 15. Florastor 250 mg daily. REVIEW OF SYSTEMS A complete review of systems is negative except as indicated in the HPI. The patient does report intermittent leg swelling. She has lost weight over the past couple of weeks. She has never been told she has heart failure. I do not see any echocardiogram in [facility]. She denies paroxysmal nocturnal dyspnea. She does have dyspnea on exertion when walking across the room. PHYSICAL EXAMINATION VITAL SIGNS: Temperature is 98.5, pulse 74, respirations 16, blood pressure 141/72, oxygen saturation 99% on room air. GENERAL: The patient is a female who is awake and alert. No acute distress. HEENT: The head is atraumatic. Mucous membranes are moist. NECK: Supple. Trachea is midline. CARDIOVASCULAR: Regular rate and rhythm. RESPIRATORY: Lungs demonstrate decreased breath sounds at the bases. Breathing is not labored with conversation. ABDOMEN: Soft, nontender with bowel sounds present in all 4 quadrants. EXTREMITIES: Extremities are nontender with no pedal edema. NEUROLOGIC: The patient is awake and alert. She is oriented x3. She follows commands. PSYCHIATRIC: Mood and affect are normal. The patient is cooperative. SKIN: Skin of examined areas is warm and dry. Unit #: [id number] #: [id number] Patient: YINKA BRADY DIAGNOSTIC TESTS CARDIOVASCULAR: EKG shows normal sinus rhythm with rate of 73 beats per minute. IMAGING: Chest x-ray shows findings suggestive of congestive heart failure with cardiomegaly versus possible pericardial effusion, pulmonary edema and bilateral pleural effusions. CT of the head shows nothing acute. LABORATORY: Complete blood count notable for hemoglobin and hematocrit of 10.9 and 33.1 respectively. INR is 1.4. Ammonia level 17. Comprehensive metabolic panel notable for bicarb of 20, BUN and creatinine 8 and 1.5 respectively. Calcium 8.3 but corrects when albumin of 2.7 is accounted for. Alkaline phosphatase is 237. Tylenol and alcohol levels are negative. BNP is 2,770. Urinalysis notable for 2+ leukocyte esterase, 2+ blood with 50-100 red blood cells, 5-10 white blood cells. Urine tox screen is negative. ASSESSMENT 1. The patient is a 66-year-old female with altered mental status. 2. Urinary tract infection. Review of urine culture from December 03, 2016 grew 20,000 to 30,000 ESBL E-coli. 3. New CHF with no echocardiogram in [facility]. 4. Chronic anemia. The patient's hemoglobin was 9.6 on January 12, 2017. It is 10.9 today. 5. Chronic kidney disease, stage 4. The patient's creatinine was 2.2 on January 02. It is 1.5 today. 6. Recurrent pancreatitis secondary to alcohol abuse. 7. History of pancreatic pseudocyst. 8. Hypertension. 9. Hyperlipidemia. 10. Diverticular disease. 11. Alcohol abuse with last drink being more than 2 weeks ago. 12. History of cocaine abuse. 13. C. diff., currently on Flagyl. PLAN 1. Admit for observation to intermediate level. 2. Two-gram sodium, 1,800 mL fluid restricted, heart healthy diet if passes bedside swallow. 3. Check TSH, B12 and folate. 4. Neuro checks. 5. Fall precautions. 6. Blood cultures x2. 7. Urine culture and sensitivity on urine in the lab. 8. Meropenem IV for possible urinary tract infection with history of ESBL, pending results of urine culture. 9. Two-D echo. 10. Lasix 40 mg IV daily. 11. Serial cardiac enzymes. 12. Strict I's and O's. 13. Daily weights. 14. Consult Dr. Saldana regarding new CHF. 15. Repeat labs in the morning. 16. Additional workup and consultants based on above. Unit #: [id number] #: [id number] Patient: YINKA BRADY Dictated by Sandro Ladd/merline TD: 01/15/2017 15:36 JOB #: [id number] HISTORY AND PHYSICAL Page 1 of 1 X Shannen Rascon MD X HISTORY AND PHYSICAL
[~2017-01-15 11:53] MED LIST changes: +COLCRYS0.6 M2 PO; +DOCUSATE SODIU100 MG PO; +FERROUS GLUCON324 M1 PO; +LEVAQUIN750 M1 PO; +NEURONTIN100 MG PO; +ZOFRAN PO
[2017-01-15 12:36] LABS: BASOPHIL% 0.3 % (0-2.5); EOSINOPHIL# 0.1 X10e3 (0-0.7); EOSINOPHIL% 0.9 % (0.0-7.0); HEMATOCRIT 33.1 % (35.0-45.0); HEMOGLOBIN 10.9 gm/dL (12.0-16.0); LYMPHOCYTE% 12.6 % (17.0-45.0); MEAN CELL VOLUME 94.3 FL (83-96); MEAN CORPUSCULAR HGB CONC 32.9 g/dL (30-36); MEAN PLATELET VOLUME 9.4 FL (6.5-11.5); MONOCYTE% 12.5 % (3.0-12.0); NEUTROPHIL% 73.7 % (40-75); PLATELET COUNT 411 X10e3 (140-420); RED BLOOD COUNT 3.51 X10e (3.90-5.30); RED CELL DISTRIBUTION WIDTH 15.6 % (11.0-15.5); WHITE BLOOD COUNT 8.1 X10e3 (4.0-10.5)
[2017-01-15 12:43] LABS: DIFF IND NO
[2017-01-15 12:47] LABS: INR 1.4; PARTIAL THROMBOPLASTIN TIME 26.6 SECONDS (23.5-31.3)
[2017-01-15 13:07] LABS: ALBUMIN SERUM 2.7 g/dL (3.5-5.0); ALKALINE PHOSPHATASE 237 U/L (32-92); ALT (SGPT) 18 U/L (10-40); AST (SGOT) 30 U/L (10-42); BILIRUBIN, DIRECT 0.4 mg/dL (0.0-0.2); BILIRUBIN,INDIRECT 0.7 mg/dL (0.0-0.9); BILIRUBIN,TOTAL 1.1 mg/dL (0.2-2.0); BLOOD UREA NITROGEN 8 mg/dL (9-23); BUN/CREATININE RATIO 5.33; CALCIUM SERUM 8.3 mg/dL (8.4-10.2); CARBON DIOXIDE 20 mmol/L (22-31); CHLORIDE 104 mmol/L (100-111); CREATININE SERUM 1.5 mg/dL (0.6-1.4); GLOM FILT RATE Estimated 35.7 mL/min (>60); GLUCOSE FASTING 97 mg/dL (70-110); POTASSIUM 4.3 mmol/L (3.5-5.1); PROTEIN TOTAL SERUM 6.4 g/dL (6.0-8.3); SODIUM 135 mmol/L (135-145)
[2017-01-15 13:14] LABS: ACETAMINOPHEN <10 ug/mL; ALCOHOL BLOOD <5 mg/dL (0)
[2017-01-15 13:47] LABS: URINE SOURCE CLEAN CATCH
[2017-01-15 13:56] LABS: URINE APPEARANCE CLEAR; URINE BILIRUBIN NEG (NEG); URINE BLOOD 2+ (NEG); URINE COLOR YELLOW; URINE GLUCOSE NEG (NEG); URINE KETONE NEG (NEG); URINE LEUKOCYTE ESTERASE 2+ (NEG); URINE NITRATE NEG (NEG); URINE PH 7.5 (5-8); URINE PROTEIN NEG (NEG); URINE SPECIFIC GRAVITY 1.003 (1.003-1.035); URINE UROBILINOGEN 0.2 MG/DL (NEG)
[2017-01-15 13:58] LABS: CULTURE INDICATED? YES; URBCS1 AUWI 50-100 /[HPF] (0-2); URINE BACTERIA AUWI NEG (NEGATIVE); URINE SQUAMOUS EPITHELIAL CELL MOD /[HPF]
[2017-01-15 14:16] LABS: AMPHETAMINE NEG (NEG); BARBITURATES NEG (NEG); BENZODIAZEPINES NEG (NEG); COCAINE NEG (NEG); MARIJUANA NEG (NEG); OPIATES NEG (NEG); TRICYCLIC ANTIDEPRESSANTS NEG (NEG); U METHADONE NEG (NEG)
[2017-01-15] MEDS ORDERED: PHENERGAN25 M1 PO (14:30)
[2017-01-15] MEDS ORDERED: METRONIDAZOLE PO (14:31)
[2017-01-15] MEDS ORDERED: FLORASTORKIDS250 MG PO (14:33)
[2017-01-15 16:17] LABS: CK TOTAL 32 IU/L (26-140)
[2017-01-15 17:02] LABS: FOLATE (FOLIC ACID) >23.6 ng/mL (>5.8)
[2017-01-15 22:06] LABS: CK TOTAL 33 IU/L (26-140)
[2017-01-16 04:32] LABS: HEMATOCRIT 24.9 % (35.0-45.0); MEAN CELL VOLUME 94.8 FL (83-96); MEAN CORPUSCULAR HGB CONC 32.7 g/dL (30-36); MEAN PLATELET VOLUME 9.4 FL (6.5-11.5); RED BLOOD COUNT 2.63 X10e (3.90-5.30); RED CELL DISTRIBUTION WIDTH 14.7 % (11.0-15.5)
[2017-01-16 04:40] LABS: HEMOGLOBIN 8.1 gm/dL (12.0-16.0)
[2017-01-16 04:45] LABS: INR 1.5; PROTHROMBIN TIME (PATIENT) 15.9 SECONDS (9.6-11.5)
[2017-01-16 04:50] LABS: CK TOTAL 23 IU/L (26-140)
[2017-01-16 04:56] LABS: ALBUMIN SERUM 2.1 g/dL (3.5-5.0); CALCIUM SERUM 7.8 mg/dL (8.4-10.2); CREATININE SERUM 1.6 mg/dL (0.6-1.4); PROTEIN TOTAL SERUM 5.1 g/dL (6.0-8.3)
[2017-01-16 12:52] LABS: FREE THYROXIN (T4) 1.3 ng/dL (0.58-1.64)
[2017-01-17 06:10] LABS: HEMATOCRIT 23.9 % (35.0-45.0); HEMOGLOBIN 7.9 gm/dL (12.0-16.0); MEAN CELL VOLUME 93.2 FL (83-96); MEAN CORPUSCULAR HEMOGLOBIN 30.9 PG (28-34); MEAN CORPUSCULAR HGB CONC 33.1 g/dL (30-36); MEAN PLATELET VOLUME 8.7 FL (6.5-11.5); RED BLOOD COUNT 2.56 X10e (3.90-5.30); RED CELL DISTRIBUTION WIDTH 14.7 % (11.0-15.5); WHITE BLOOD COUNT 6.2 X10e3 (4.0-10.5)
[2017-01-17 07:18] LABS: CALCIUM SERUM 7.5 mg/dL (8.4-10.2); CREATININE SERUM 1.6 mg/dL (0.6-1.4); MAGNESIUM 1.4 mg/dL (1.6-3.0); POTASSIUM 3.4 mmol/L (3.5-5.1)
[2017-01-17] MEDS ORDERED: LASIX20 MG PO (15:24)
[2017-01-17] MEDS ORDERED: SYNTHROID25 MCG PO (15:25)
[2017-01-17] MEDS ORDERED: KEFLEX500 MG PO (15:42)
[2017-01-17] MEDS ORDERED: COREG12.5 M1 PO (15:43)
[2017-01-17] MEDS ORDERED: MAG-OX 400400 M1 PO (15:44)
[2017-01-24] MEDS ORDERED: TRAMADOL HCL50 M1 PO (19:52)
== END 2017-01-17 18:39 | disposition home or self-care (01) | DRG 291 ==
LOC: CED 11:53 → C5C 01-16 16:08
PROVIDERS: Emergency Medicine; Family Medicine; Internal Medicine
DX: I13.0 Hypertensive heart and chronic kidney disease with heart failure and stage 1 through stage 4 chronic kidney disease, or unspecified chronic kidney disease (principal); I50.31 Acute diastolic (congestive) heart failure; G92 Toxic encephalopathy; L89.151 Pressure ulcer of sacral region, stage 1; E44.0 Moderate protein-calorie malnutrition; A04.7 Enterocolitis due to Clostridium difficile; E87.2 Acidosis; N18.4 Chronic kidney disease, stage 4 (severe); K76.0 Fatty (change of) liver, not elsewhere classified; N39.0 Urinary tract infection, site not specified; K86.1 Other chronic pancreatitis; D64.9 Anemia, unspecified; Z87.440 Personal history of urinary (tract) infections; E87.6 Hypokalemia; E83.41 Hypermagnesemia; E03.9 Hypothyroidism, unspecified; E78.5 Hyperlipidemia, unspecified; G89.29 Other chronic pain; E53.8 Deficiency of other specified B group vitamins; F10.10 Alcohol abuse, uncomplicated; K57.30 Diverticulosis of large intestine without perforation or abscess without bleeding
CPT/HCPCS: 36415; 70450; 71010; 80048; 80053; 80061; 80076; 80307; 81003; 82140; 82550; 82607; 82746; 82947; 83735; 83880; 84439; 84443; 84481; 84484; 85025; 85027; 85610; 85730; 87040; 87086; 93005; 93306; 99285; G0480; J1940; J2185; J3475

== ENCOUNTER 2017-01-24 20:53 | Inpatient (IN) | payer MEDICARE, OTHER ==
--- NOTE | ~2017-01-24 | CO ---
Unit #: [id number] #: [id number] Patient: YINKA PALMA [id number] [place], [place] [address] [id number] MR#: [id number] NAME: YINKA PALMA ROOM: 325 Age: 66 Sex: F Admission Date: 01/24/2017 : 1950 Attending Physician: Roxann Strauss M.D. Primary Care Physician: Parris Napier M.D. Consultation Date: 01/25/2017 CONSULTATION REPORT REASON FOR CONSULTATION Acute on chronic diastolic congestive heart failure. HISTORY OF PRESENT ILLNESS This is a 66-year-old white female with known history of hypertension, chronic kidney disease, history of diastolic congestive heart failure last month, hypothyroidism, iron deficiency anemia, recent C. difficile colitis, peptic ulcer disease, recently quit drinking alcohol, who came to the emergency room with worsening shortness of breath and paroxysmal nocturnal dyspnea. Since her discharge on 01/17/2017 with new-onset diastolic congestive heart failure, the patient said she has been feeling fairly well at home. Her daughter is at the bedside, who takes care of her and she says she has been compliant with her medications, not been drinking any alcohol, but she has a very poor oral intake and very poor appetite. She said [facility] has been checking on the patient and they saw her yesterday morning. She complained of feeling more short of breath than usual. Her O2 saturation was still within the normal range, but was a little lower than normal. She said she feels like sometimes she has some increased lower extremity edema time to time, but that did not seem to be a big problem yesterday. She said that as the day progressed yesterday, her shortness of breath with minimal exertion worsened, so she was advised to come into the emergency room for further evaluation. She denies any chest pain or pain in her neck, bilateral jaws, shoulders, arms, or elbow. She denies any palpitations. No dizziness, presyncope, or syncope. She has occasional cough, but no fever or chills. Denies any abdominal or back pain. In the emergency room, the patient's blood pressure was 152/110. It is reported by the daughter yesterday that [facility] checked and it was within normal range. Her chest x-ray is consistent with congestive heart failure. She was given 40 of IV Lasix and admitted. Cardiology has been asked to assist with evaluation and management. PAST MEDICAL HISTORY 1. Recently diagnosed with diastolic congestive heart failure. In 12/2016, 2D echo, LVEF of 55%, mild aortic stenosis, impaired LV relaxation with mild tricuspid regurgitation, elevated RVSP 35 mmHg and a small pericardial effusion. 2. Hypertension. 3. Chronic kidney disease. 4. Hyperlipidemia. 5. History of hypothyroidism. 6. Iron deficiency anemia. Unit #: [id number] #: [id number] Patient: YINKA PALMA 7. B12 deficiency. 8. History of C. difficile colitis. 9. Peptic ulcer disease. EGD in 11/2016 showed a small ulcer and gastritis and mild esophagitis and has a history of diverticular disease. 10. History of polysubstance abuse in the past. Used cocaine and amphetamines. Alcohol abuse, quit one month ago. 11. Nonsmoker. 12. Recurrent relapsing alcohol-induced pancreatitis. PAST SURGICAL HISTORY 1. In 11/2016, EGD showed small ulcer and gastritis and mild esophagitis. 2. Wrist surgery. 3. Right shoulder surgery. HOME MEDICATIONS Folic acid 1 mg p.o. daily; thiamine 100 mg p.o. daily; multivitamin one tablet daily; sodium bicarbonate 650 mg p.o. t.i.d.; iron gluconate 324 mg one tablet b.i.d.; Pepcid AC 20 mg one tablet daily; Phenergan as needed; Florastor 250 mg p.o. daily; Lasix 20 mg p.o. daily; Synthroid 0.025 mg p.o. daily; carvedilol 12.5 mg p.o. b.i.d.; MAGnesium-Oxide 400 mg p.o. b.i.d.; Ultram 50 mg p.o. every q.6 hours p.r.n. as needed. ALLERGIES No known drug allergies. SOCIAL HISTORY The patient is now living with her sister. She quit drinking alcohol over the past month. Lifelong nonsmoker. She has a history in the past of having cocaine and amphetamine drug abuse. FAMILY HISTORY Positive for diabetes mellitus. REVIEW OF SYSTEMS See details in HPI. PHYSICAL EXAMINATION GENERAL: Ms. Palma is a 66-year-old white female, in no acute respiratory distress. She is awake, alert, and oriented. VITAL SIGNS: Blood pressure on admission was 152/110, came down a couple of hours later to 121/95, this morning is 124/80; respirations 18; heart rate is 80; temperature is 98.4; O2 saturations 97% on 2 L. NECK: Trachea midline. No thyromegaly or lymphadenopathy. Normal carotid upstrokes. No jugular venous distention. HEART: S1 and S2. Regular rate and rhythm. LUNGS: Diminished breath sounds. ABDOMEN: Soft, nontender. EXTREMITIES: Pedal pulses are palpable. 1+ pedal edema. DIAGNOSTIC STUDIES LABORATORY RESULTS: Glucose is 100, BUN 12, creatinine is 1.8, eGFR is 28.6, sodium 134, potassium is 5.4, chloride is 104, CO2 of 24, calcium is 8.3, magnesium is 1.8, bilirubin total 0.9, AST 25, ALT 11, alkaline phosphatase is 150. BNP is 4853. B12 is 1219. Folate is greater than 23.6. TSH is 8.16. INR is 1.3. WBCs 8.9, hemoglobin is 8.0, hematocrit 24.5, and platelets are 300. Initial cardiac enzymes; CK-MB is 1.1, troponin less than 0.05. CK-MB is less than 1.0, troponin less than 0.05. Unit #: [id number] #: [id number] Patient: YINKA PALMA IMAGING STUDIES: Chest x-ray shows bilateral pleural effusions with bibasilar infiltrates or atelectasis, pulmonary edema. EKG shows normal sinus rhythm with left atrial abnormality, low voltage throughout all leads, poor R-wave progression. IMPRESSION 1. Acute on chronic diastolic congestive heart failure. A 2D echo in 12/2016 showed LVEF of 55%, mild aortic stenosis, impaired left ventricular relaxation with mild tricuspid regurgitation, [id number] pulmonary artery hypertension. 2. Hyperlipidemia. 3. Hypothyroidism. 4. Iron deficiency anemia and B12 deficiency. 5. History of relapsing alcohol-induced pancreatitis. 6. History of Clostridium difficile colitis. 7. Esophagogastroduodenoscopy in 11/2016 showed a small ulcer and gastritis and mild esophagitis. 8. History of polysubstance abuse in the past, cocaine and amphetamines. 9. Alcohol abuse. 10. History of diverticular disease. 11. Nonsmoker. 12. Acute on chronic kidney disease. 13. Hyperkalemia. PLAN 1. The patient is being diuresed gently with IV Lasix. Strict intake and output and daily weight. We will optimize the patient's medications. According to the sister whom the patient lives with now, she is being compliant with no drinking and no alcohol, and she helps her to take her medications. 2. If the patient does go home, an appointment has been made with Dr. Viera to see her on 03/18/2017 that is Saturday at 12:45 p.m. 3. The patient is to follow up with Dr. Coulter and he is to make recommendations. 4. The patient's potassium is going to be rechecked. Overall, the patient is feeling better. She wants to go home. So, the hospitalist is going to check some labs later today, and if she is doing fine and she sounds asymptomatic, she will possibly be discharged home today. 5. We will monitor labs. 6. The patient is on magnesium sulfate for her hypomagnesium. Dictated by... Alyssa Grajeda/modl TD: 01/26/2017 06:55 JOB #: [id number] CC: [facility] Cardiology [facility] Unit #: [id number] #: [id number] Patient: YINKA PALMA CONSULTATION REPORT Page 1 of 1 X Chrissie Pearson APRN X CONSULTATION REPORT
--- NOTE | ~2017-01-24 | EKG ---
PATIENT: YINKA BRADY UNIT #: [id number] Ventricular Rate: 109 BPM Atrial Rate: 27 BPM QRS Duration: 66 ms Q-T Interval: 482 ms QTC Calculation(Bezet): 649 ms Calculated R Perrin: 46 degrees Calculated T Perrin: 55 degrees Diagnosis Line: Sinus rhythm Diagnosis Line: Low voltage QRS Diagnosis Line: Poor R wave progression questionable lead position Diagnosis Line: or body habitus Otherwise normal ECG Diagnosis Line: Diagnosis Line: Confirmed by MARIE CUBA MD ([id number]) on 01/27/2017 Diagnosis Line: 4:01:29 PM INTERPRETING MD: ROSA ELENA LOPEZ
--- NOTE | ~2017-01-24 | HP ---
Unit #: [id number] #: [id number] Patient: YINKA BRADY [id number] [address] [address] [id number] MR#: [id number] NAME: YINKA BRADY ROOM: Age: 66 Sex: F Admission Date: 01/24/2017 : 1950 Attending Physician: Bradford Marley M.D. Primary Care Physician: Parris Napier M.D. HISTORY AND PHYSICAL CHIEF COMPLAINT Congestive heart failure with exacerbation. HISTORY OF PRESENT ILLNESS This pleasant 66-year-old female with hypertension, chronic kidney disease, diastolic dysfunction, is admitted for shortness of breath with congestive heart failure. The patient was last admitted to this facility 01/15 through 01/17/2017 for new-onset congestive heart failure thought to be related to diastolic dysfunction. Per the discharge summary, an echo was performed revealing an ejection fraction of 55%, but I believe there was some mitral stenosis present. Right ventricular systolic pressure 35 mmHg. Will obtain these echo results. Family states patient was seen by Dr. Saldana, was discharged home on low dose Lasix. She was in her usual state of health until yesterday when she began to experience increasing dyspnea on exertion, and today worsening shortness of breath along with nonradiating anterior chest discomfort. Presented to this emergency department tonight somewhat hypertensive to 152/110. Chest x-ray most consistent with congestive heart failure. Lasix 40 mg IV was given with improvement of the patient's symptoms. PAST MEDICAL HISTORY 1. Diastolic dysfunction with recent admission for congestive heart failure, please see above details. 2. Chronic kidney disease. 3. History of polysubstance abuse. Urine toxicology screen in the past has been positive for cocaine, amphetamines, the patient previously did abuse alcohol. 4. History of C difficile colitis. 5. History of ESBL E coli UTI. 6. B12 deficiency. 7. Hyperlipidemia. 8. Hypertension. 9. Iron-deficiency anemia. 10. Peptic ulcer disease recently diagnosed on EGD last month with small ulcer and gastritis along with mild esophagitis. 11. Diverticular disease. 12. Recurrent relapsing alcohol-induced pancreatitis. 13. Anxiety disorder. 14. Wrist surgery. 15. Right shoulder surgery. ALLERGIES Unit #: [id number] #: [id number] Patient: YINKA BRADY No known drug allergies. HOME MEDICATIONS 1. Folic acid 1 mg daily. 2. Thiamine 100 mg daily. 3. Multivitamin daily. 4. Sodium bicarbonate 650 mg t.i.d. 5. Iron gluconate 324 mg b.i.d. 6. Pepcid AC 20 mg daily. 7. Phenergan as needed. 8. Florastor 250 mg daily. 9. Lasix 20 mg daily. 10. Synthroid 0.025 mg daily. 11. Coreg 12.5 mg b.i.d. 12. Magnesium oxide 400 mg b.i.d. 13. Ultram 50 mg q.6 h. as needed. SOCIAL HISTORY The patient is now living with her sister. She no longer drinks alcohol. She is a lifelong nonsmoker. FAMILY HISTORY Diabetes mellitus. REVIEW OF SYSTEMS Notable for shortness of breath, chest discomfort, chronic kidney disease, polysubstance abuse, C difficile, B12 deficiency, hyperlipidemia, hypertension, anemia, diverticular disease, peptic ulcer disease, chronic kidney disease, anxiety, above-mentioned surgeries. All other systems were reviewed and are negative. PHYSICAL EXAMINATION VITAL SIGNS: Temperature 99.7, pulse 110, respirations 19, blood pressure 152/110, O2 saturation 96% on 2 liters of oxygen, but patient is currently requiring 4 liters of oxygen. GENERAL: Pleasant, thin 66-year-old female currently in no acute distress. HEENT: Eyes PERRLA. Extraocular muscles are intact. Pharynx benign. NECK: Supple without adenopathy or thyromegaly. I do not appreciated JVD at this time. CHEST: Diminished breath sounds. HEART: Normal S1, S2 with no definite murmur. ABDOMEN: Bowel sounds are present. No hepatosplenomegaly, tenderness or masses. EXTREMITIES: Without edema. Pedal pulses are present but diminished. No ulcers on the feet. NEUROLOGIC: Awake, alert, oriented. Cranial nerves are intact. Equal strength throughout. DIAGNOSTIC STUDIES LABORATORY: Hematocrit 28.5 which is improved, normal MCV, white count and platelet count. Coags normal. SMA-12 creatinine 1.5 which is improved, albumin 3.1. BNP 4800. Cardiac markers negative. IMAGING: Chest x-ray stable cardiomegaly. Bilateral pleural effusions with atelectasis versus infiltrates and congestive heart failure. CARDIOVASCULAR: EKG shows a sinus tachycardia rate 109, low voltage. Unit #: [id number] #: [id number] Patient: YINKA BRADY ASSESSMENT 1. Acute congestive heart failure exacerbation with history of diastolic dysfunction. However, the patient did experience chest pressure with the above. 2. Acute hypoxic respiratory failure secondary to above. 3. Stable chronic kidney disease. 4. Hypothyroidism. 5. Hypertension. 6. History of alcohol-induced pancreatitis but no recent alcohol use. 7. Peptic ulcer disease. 8. Chronic normocytic anemia, improved. PLAN 1. IV Lasix, obtain I's and O's and daily weights. 2. Obtain TSH, and increase Synthroid if TSH is low. 3. Serial cardiac enzymes, aspirin, low dose nitroglycerin paste, obtain prior echo report and consult Cardiology. 4. Decrease Coreg for now. 5. DVT prophylaxis. Dictated by Sandro Shirley/constance TD: 01/24/2017 22:56 JOB #: [id number] HISTORY AND PHYSICAL Page 1 of 1 X Marbella Douglass MD HISTORY AND PHYSICAL
--- NOTE | ~2017-01-24 | A ---
[facility] Nutrition Therapy DATE: 01/25/17 Patient: YINKA BRADY Physician: YVETTE Address: [id number] [place] [address] ROAD Room/Bed: [address] [place] [address], Zip: [place] [address] Admit Date: 01/24/17 Date of : [birth year] Height: 5 3 Weight: 102 46.26 NUTRITIONAL ASSESSMENT: REASON: Low BMI Admitting Dx: 66 y/o female admitted with CHF exacerbation, recent admission last month for the same PMH: DEBORAH, recurrent pancreatitis 2' ETOH abuse, Polysubstance abuse, HTN, HLD, CKD, B12 deficiency, C. diff, diverticular disease, peptic ulcer disease Anthropometrics: Ht: 63", Wt: 101 lbs, BMI: 18 (underweight), 88% IBW Past weights: 99-117 lbs, UBW 1 year ago: 115-118 lbs Labs: Na 134, K+ 5.4, Creat 1.8, A1C 5.4 (01/12/17), GFR 28.6, 01/16 lipid panel WNL except HDL low (27) Meds: Synthroid, Lasix, Pepcid, Therapeutic formula, Thiamine, Folic acid, Zofran prn, Mag-ox, Na bicarb, Fe gluconate, prn laxative I/O & Bowel function: LBM 5/4, dry mouth noted, denies N/V Skin Integrity: Redness coccyx, dry flaky skin abdomen/chest/extremities, no edema Assessment: Chart reviewed, events noted. Patient on 2L nasal cannula, see admitting dx and PMH as stated above. RD previously assessed on 12/04/16- note reviewed. Patient has previously reported weight loss of 30 lbs in the past year with UBW of 115-118 lbs, current weight is 101 lbs (stable over past 2 months); given this information it is more likely that the patient has lost 15-18 lbs and not 30 lbs. She is clinically underweight, on a healthy heart diet. Reports decreased appetite and PO intake over the past year however she is unable to state exactly how much she eats everyday. Likes Ensure Clear- will order and discussed changing diet to 2g sodium to liberalize food choices a bit. Encouraged consuming at least 50% of all meals and snacks prn, patient agreed. Family member at bedside states the patient requires a lot of encouragement to eat meals. No diet questions/concerns at this time, will follow. Dx: Underweight r/t decreased appetite/PO intake AEB BMI 18, 88% IBW. Intervention: 2g sodium diet, Ensure Clear TID Monitoring, Evaluation and Goals: 1. PO intake > 50% of meals. 2. ONS intake 100% TID. [facility] Nutrition Therapy DATE: 01/25/17 Patient: YINKA BRADY Physician: YVETTE Address: [address] [place] [address] Room/Bed: [address] [place] [address], Zip: [place] [address] Admit Date: 01/24/17 Date of : [birth year] Height: 5 3 Weight: 102 46.26 3. Gradual weight gain towards a healthy BMI range. 4. Improvement in labs (lytes, Creat, GFR). Monitor: Per protocol, criteria to determine if above goals met Recommendations: 1. RD writing order to change diet from healthy heart to 2g sodium to liberalize food choices. Please encourage patient to consume at least 50% of all meals and offer snacks prn. Assist with setup and ordering as needed. 2. RD writing order to give mixed pruitt Ensure Clear TID to increase oral kcal/protein intake. 3. Please weigh q 3 days for monitoring purposes, as the patient is underweight. 4. If the patient's oral intake does not improve consider adding a daily appetite stimulant to her medication regimen. 5. Continue vitamins. RD will follow hospital course Mild-moderate nutrition risk Respectfully, Angelica Brooks RD, [facility] [employer] [facility] [employer] [facility] cc: client file
--- NOTE | ~2017-01-24 | DS ---
Unit #: [id number] #: [id number] Patient: YINKA PALMA [id number] [address] [address] [id number] I MR#: [id number] NAME: YINKA PALMA ROOM: 325 Age: 66 Sex: F Admission Date: 01/24/2017 : 1950 Discharge Date: 01/25/2017 Attending Physician: Roxann Strauss M.D. Primary Care Physician: Parris Napier M.D. DISCHARGE SUMMARY PRINCIPAL DIAGNOSES 1. Eokeb-na-osekyqc diastolic congestive heart failure with ejection fraction of 55%. 2. Acute hypoxic respiratory failure secondary to number two, now resolved. 3. Hyperkalemia. 4. Chronic kidney disease stage 5, with discharge creatinine of 1.8. 5. Hypertension. 6. Hyperlipidemia. 7. Gastroesophageal reflux disease. 8. Iron deficiency anemia. 9. Anxiety disorder. 10. Underweight. 11. Moderate protein malnutrition. 12. Hypothyroidism. CONSULTANTS Dr. Viera, cardiology. DIAGNOSTIC DATA IMAGING: Chest x-ray on 01/24/2017 with cardiomegaly. Bilateral pleural effusions with bibasilar infiltrate or atelectasis. Pulmonary edema noted. CLINICAL HISTORY/HOSPITAL COURSE Ms. Palma is a 66-year-old female with a history of diastolic congestive heart failure, who presented to the emergency department with increasing shortness of breath. In the emergency department the patient underwent chest x-ray revealing congestive heart failure. The patient was mildly hypoxic as well. She was subsequently admitted. The patient was started on IV diuretics and Dr. Viera was consulted. The patient's shortness of breath has resolved and she is ambulating without shortness of breath. I am currently awaiting an ambulating O2 saturation. Crackles have resolved. Plan is to increase her diuretics as an outpatient. I have discussed with the patient and her sister, who is her primary caregiver, that her kidney function will worsen as a result of this and it is most important that she have appropriate respiratory status. The patient did develop some mild hyperkalemia this morning, though I question whether this specimen is hemolyzed. I am going to recheck a potassium and avoid potassium supplementation upon discharge. The patient's other chronic conditions all remain stable. I did have an extensive discussion with the patient and her sister regarding continued cessation of alcohol and trying to increase her diet. The patient's Unit #: [id number] #: [id number] Patient: YINKA PALMA sister does have concern that the patient is not eating adequately and I suspect this is multifactorial, i.e. her severe chronic kidney disease and anxiety are contributing factors. I do not think the patient is a candidate for PEG tube placement at this time, nor do I feel she would desire it. I have informed the patient's sister, who asked me many questions, that the patient's physical status can change and Hospice may be appropriate, given she is not deemed to be a dialysis candidate. DISCHARGE CONDITION Stable. DISPOSITION Discharge to home with [facility] on discharge. DISCHARGE MEDICATIONS 1. Lasix 20 mg b.i.d. 2. Sodium bicarbonate 650 mg t.i.d. 3. Magnesium oxide 400 mg b.i.d. 4. Phenergan 25 mg p.o. t.i.d. p.r.n. nausea. 5. Coreg 12.5 mg half tablet p.o. b.i.d. 6. Ferrous gluconate 324 mg b.i.d. 7. Pepcid 20 mg daily. 8. Florastor 250 mg daily. 9. Daily multivitamin. 10. Tramadol 50 mg p.o. q.6 h. p.r.n. pain. 11. Levothyroxine 25 mcg p.o. daily. 12. Folic acid 1 mg daily. 13. Thiamine 100 mg daily discontinued. DIET The patient was instructed to follow a heart healthy, high protein diet. She should monitor her salt intake. ACTIVITY She can increase her activity as tolerated. FOLLOWUP 1. The patient has a follow-up appointment with Dr. Viera on 03/18/2017 at 12:45 p.m. 2. She has a follow-up appointment with Dr. Vahe Coulter of nephrology next week and I have informed them to keep this appointment. Time spent on discharge 47 minutes. Dictated by... Roxann Strauss M.D. Jasmin TD: 01/26/2017 13:13 JOB #: [id number] Unit #: [id number] #: [id number] Patient: YINKA PALMA DISCHARGE SUMMARY Page 1 of 1 X Roxann Strauss MD X DISCHARGE SUMMARY
--- NOTE | ~2017-01-24 | CR72 ---
[facility] A Service of [facility] & [facility] RADIOLOGY TEXT RESULTS PATIENT: YINKA BRADY LOCATION: [facility] 325-01 : [birth year] UNIT #: [id number] AGE: [address]: Roxann Strauss MD SEX: F ORDER DR: [id number] [facility] [address] [place], [place] [address] [id number] I MR#: [id number] Acc #: [id number] NAME: YINKA BRADY : 1950 SEX: F STUDY DATE/TIME: 01/24/2017 20:42 UNIT: CEDOF ROOM: 02808 STUDY DESCRIPTION: CR Chest Single View Portable Attending Physician: Marbella Douglass M.D. Ordering Physician: Bradford Marley M.D. Primary Care Physician: Parris Napier M.D. MEDICAL IMAGING REPORT This report is preliminary unless electronic signature is present EXAM Portable chest, 01/24/2017 HISTORY Shortness of breath and chest pain since 01/23/2017. Benign essential hypertension, congestive heart failure. FINDINGS The heart is enlarged but stable compared with 01/15/2017. Diffuse interstitial infiltrates are characteristic of mild pulmonary edema. There are bilateral pleural effusions with bibasilar infiltrates or atelectasis. No pneumothorax. Surgical plate and screws traverse an old healed fracture of the right humerus. IMPRESSION 1. Stable cardiomegaly compared with 01/15/2017. 2. Bilateral pleural effusions with bibasilar infiltrates or atelectasis. 3. Pulmonary edema. Dictated by... Natanael Sanchez M.D. THIS IS AN ELECTRONICALLY VERIFIED REPORT Natanael Sanchez M.D. at 01/25/2017 3:40 PM LYN/karolina TD: 01/25/2017 02:53 JOB #: [id number] MEDICAL IMAGING REPORT Page 1 of 1 COPY
[~2017-01-24 20:53] MED LIST changes: +COREG12.5 M1 PO; +FLORASTORKIDS250 MG PO; +KEFLEX500 MG PO; +LASIX20 MG PO; +METRONIDAZOLE PO; +PHENERGAN25 M1 PO; +SYNTHROID25 MCG PO
[2017-01-24 21:00] LABS: BASOPHIL# 0.1 X10e3 (0-0.3); BASOPHIL% 0.5 % (0-2.5); EOSINOPHIL# 0.2 X10e3 (0-0.7); EOSINOPHIL% 2.1 % (0.0-7.0); HEMATOCRIT 28.5 % (35.0-45.0); HEMOGLOBIN 9.4 gm/dL (12.0-16.0); LYMPHOCYTE# 1.3 X10e3 (1.0-3.5); LYMPHOCYTE% 12.3 % (17.0-45.0); MEAN CELL VOLUME 94.2 FL (83-96); MEAN CORPUSCULAR HEMOGLOBIN 31.2 PG (28-34); MEAN CORPUSCULAR HGB CONC 33.2 g/dL (30-36); MEAN PLATELET VOLUME 9.4 FL (6.5-11.5); MONOCYTE# 1.1 X10e3 (0-1.0); MONOCYTE% 10.5 % (3.0-12.0); NEUTROPHIL# 7.8 X10e3 (1.5-7.1); NEUTROPHIL% 74.6 % (40-75); PLATELET COUNT 359 X10e3 (140-420); RED BLOOD COUNT 3.02 X10e (3.90-5.30); RED CELL DISTRIBUTION WIDTH 15.1 % (11.0-15.5); WHITE BLOOD COUNT 10.4 X10e3 (4.0-10.5)
[2017-01-24 21:05] LABS: DIFF IND NO
[2017-01-24 21:11] LABS: INR 1.3; PROTHROMBIN TIME (PATIENT) 13.6 SECONDS (9.6-11.5)
[2017-01-24 21:16] LABS: POC - CKMB 1.1 ng/mL (0.0-7.9); POC - TROPONIN <0.05 ng/mL (<=0.05)
[2017-01-24 21:19] LABS: ALBUMIN SERUM 3.1 g/dL (3.5-5.0); BILIRUBIN, DIRECT 0.3 mg/dL (0.0-0.2); BILIRUBIN,INDIRECT 0.6 mg/dL (0.0-0.9); BILIRUBIN,TOTAL 0.9 mg/dL (0.2-2.0); CALCIUM SERUM 8.4 mg/dL (8.4-10.2); CREATININE SERUM 1.5 mg/dL (0.6-1.4); GLOM FILT RATE Estimated 35.7 mL/min (>60); POTASSIUM 5.1 mmol/L (3.5-5.1); PROTEIN TOTAL SERUM 6.8 g/dL (6.0-8.3)
[2017-01-24 23:08] LABS: URINE SOURCE CLEAN CATCH
[2017-01-24 23:22] LABS: URINE APPEARANCE CLEAR; URINE BILIRUBIN NEG (NEG); URINE BLOOD 3+ (NEG); URINE COLOR YELLOW; URINE GLUCOSE NEG (NEG); URINE KETONE NEG (NEG); URINE LEUKOCYTE ESTERASE TRACE (NEG); URINE NITRATE NEG (NEG); URINE PH 7.5 (5-8); URINE PROTEIN NEG (NEG); URINE SPECIFIC GRAVITY 1.009 (1.003-1.035); URINE UROBILINOGEN 0.2 MG/DL (NEG)
[2017-01-24 23:26] LABS: URBCS1 AUWI 100-200 /[HPF] (0-2); URINE BACTERIA AUWI NEG (NEGATIVE); URINE SQUAMOUS EPITHELIAL CELL NONE SEEN /[HPF]
[2017-01-24 23:32] LABS: CULTURE INDICATED? NO
[2017-01-24 23:47] LABS: POC - CKMB <1.0 ng/mL (0.0-7.9); POC - TROPONIN <0.05 ng/mL (<=0.05)
[2017-01-25 03:08] LABS: BASOPHIL# 0.1 X10e3 (0-0.3); BASOPHIL% 1.1 % (0-2.5); EOSINOPHIL# 0.1 X10e3 (0-0.7); EOSINOPHIL% 1.1 % (0.0-7.0); HEMATOCRIT 24.5 % (35.0-45.0); LYMPHOCYTE# 1.4 X10e3 (1.0-3.5); LYMPHOCYTE% 15.4 % (17.0-45.0); MEAN CELL VOLUME 94.3 FL (83-96); MEAN CORPUSCULAR HEMOGLOBIN 30.6 PG (28-34); MEAN CORPUSCULAR HGB CONC 32.5 g/dL (30-36); MONOCYTE# 1.3 X10e3 (0-1.0); MONOCYTE% 14.3 % (3.0-12.0); NEUTROPHIL% 68.1 % (40-75); PLATELET COUNT 300 X10e3 (140-420); RED CELL DISTRIBUTION WIDTH 15.1 % (11.0-15.5); WHITE BLOOD COUNT 8.9 X10e3 (4.0-10.5)
[2017-01-25 03:10] LABS: DIFF IND NO
[2017-01-25 03:42] LABS: CK TOTAL 23 IU/L (26-140)
[2017-01-25 03:46] LABS: BUN/CREATININE RATIO 6.66; CALCIUM SERUM 8.3 mg/dL (8.4-10.2); CREATININE SERUM 1.8 mg/dL (0.6-1.4); GLOM FILT RATE Estimated 28.6 mL/min (>60); POTASSIUM 5.4 mmol/L (3.5-5.1)
[2017-01-25 09:46] LABS: CK TOTAL 19 IU/L (26-140)
[2017-01-25] MEDS ORDERED: BUSPIRONE HCL7.5 MG PO (13:13)
[2017-01-25] MEDS ORDERED: KLOR-CON SPRIN10 MEQ PO ×2 (13:14→13:28)
[2017-01-25] MEDS ORDERED: VITAMIN B12-FO1 EACH PO (13:21)
[2017-01-25] MEDS ORDERED: VITAMIN B-12250 MCG PO (13:22)
== END 2017-01-25 16:54 | disposition home health service (06) | DRG 291 ==
LOC: CED 20:53 → CEDOF 22:50 → C3A PCU 01-25 08:01
PROVIDERS: Emergency Medicine; Internal Medicine
DX: I13.2 Hypertensive heart and chronic kidney disease with heart failure and with stage 5 chronic kidney disease, or end stage renal disease (principal); I50.33 Acute on chronic diastolic (congestive) heart failure; J96.01 Acute respiratory failure with hypoxia; E44.0 Moderate protein-calorie malnutrition; N18.5 Chronic kidney disease, stage 5; I27.2 Other secondary pulmonary hypertension; E87.5 Hyperkalemia; E78.5 Hyperlipidemia, unspecified; D50.9 Iron deficiency anemia, unspecified; E53.8 Deficiency of other specified B group vitamins; F10.10 Alcohol abuse, uncomplicated; Z83.3 Family history of diabetes mellitus; F41.9 Anxiety disorder, unspecified; E03.9 Hypothyroidism, unspecified
CPT/HCPCS: 36415; 71010; 80048; 80076; 81003; 82150; 82550; 82553; 83605; 83690; 83735; 83880; 84132; 84443; 84484; 85025; 85610; 85730; 87040; 93005; 94760; 99291; J1644; J1940; J2405

== ENCOUNTER 2017-02-02 08:42 | Inpatient (IN) | payer MEDICARE, OTHER ==
--- NOTE | ~2017-02-02 | CR72 ---
[facility] A Service of [facility] & [facility] RADIOLOGY TEXT RESULTS PATIENT: YINKA BRADY LOCATION: [place] [address] : [birth year] UNIT #: [id number] AGE: [address]: Shannen Rascon MD SEX: F ORDER DR: [id number] [facility] [address] [place], [place] [address] [id number] I MR#: [id number] Acc #: [id number] NAME: YINKA BRADY : 1950 SEX: F STUDY DATE/TIME: 02/02/2017 9:10 UNIT: [facility] ROOM: [facility] STUDY DESCRIPTION: CR Chest Single View Portable Attending Physician: Shannen Rascon M.D. Ordering Physician: Michell Shah M.D. Primary Care Physician: Parris Napier M.D. MEDICAL IMAGING REPORT This report is preliminary unless electronic signature is present EXAM Portable chest. INDICATION Shortness of breath today. COMPARISON Comparison with 01/24/2017. FINDINGS There is a worsening infiltrate in the left mid-zone. Stable small right pleural effusion with right basilar atelectasis or consolidation. Stable left basilar atelectasis or consolidation. Heart size stable. Postop changes of the right shoulder. IMPRESSION Worsening infiltrate in the left mid-zone, otherwise, no significant change. Dictated by... Josué Levy M.D. THIS IS AN ELECTRONICALLY VERIFIED REPORT Josué Levy M.D. at 02/03/2017 3:46 PM MADDIE/louis TD: 02/02/2017 19:43 JOB #: [id number] MEDICAL IMAGING REPORT Page 1 of 1 COPY
--- NOTE | ~2017-02-02 | MAL ---
[facility] Nutrition Therapy DATE: 02/04/17 Patient: YINKA BRADY Physician: CATHERINE Address: [address] Room/Bed: [address] [place] [address], Zip: [place] [address] Admit Date: 02/02/17 Date of : [birth year] Height: 5 3 Weight: 97 44.2 PHYSICAL MALNUTRITION ASSESSMENT Energy Intake, Chronic Illness Moderately reduced: <75% needs for >/=1 month Energy Intake Comment: Hx of poor appetite and oral intake continues, patient requires a lot of encouragement at meals Weight Loss, Chronic Illness Moderate: 10% past 6 months Moderate: 20% past 1 year Weight Loss, Comment: Total weight loss approximates 17% of body weight in about 1 year, patient is clinically underweight Physical Findings Body Fat and Muscle Mass Moderate: (suggested) some loss of subqutaneous fat and/or muscle mass Physical Findings Functional Capacity Moderate: (suggested) reduced functional capacity Physical Findings Fluid Accumulation Moderate: (suggested) incresed fluid/edema Malnutrition Survey Results: Malnutrition identified Malnutrition Etiology Summary: Chronic illness moderate Malnutrition Survey Comment: See nutrition assessment dated 02/04/17 for full details, interventions and recommendations Respectfully, Angelica Brooks RD, ADILENE [employer] cc: client file
--- NOTE | ~2017-02-02 | FU ---
[facility] Nutrition Therapy DATE: 02/07/17 Patient: YINKA BRADY Physician: CATHERINE Address: [address] Room/Bed: [address] [place] [address], Zip: [place] [address] Admit Date: 02/02/17 Date of : [birth year] Height: 5 3 Weight: 98 44.6 NUTRITION MONITORING/FOLLOW-UP: Reason: PT SEEN FOR FOLLOW-UP DX: ACUTE RESPIRATORY FAILURE, PNA Anthropometrics: 5'3", WT: 98# (45 KG), BMI: 17.4 -ADMIT WEIGHT: 97# (44 KG) Labs: CREAT: 2.2, CA+:8.3, ALB: 2.6, GFR: 22.5 Meds: NACL, REMERON, THIAMINE, PEPCID, PHENERGAN, SYNTHROID, FOLIC ACID I&O's: 1098/1175 Skin: DRY/FLAKY SKIN + SCAB + BRUISES Estimated Nutrition Needs: INCREASED NUTRIENT NEEDS 2' PT UNDERWEIGHT, DECREASED PO INTAKE AND APPETITE, CURRENT CONDITION Assessment: CHART REVIEWED AND EVENTS NOTED. PT SEEN FOR FOLLOW-UP. PT REPORTS POOR/FAIR PO INTAKE 2' DECREASED APPETITE. PT REPORTS TAKING BITES OF CEREAL THIS AM. FAMILY NOTES THEY ENCOURAGE PO INTAKE AT HOME BUT PT NOTES DECREASED APPETITE. PT ADDS SHE DRINKS 1-2 ENSURE CLEAR SUPPLEMENT DAILY. THIS RD ENCOURAGED SMALL FREQUENT HIGH KCAL/HIGH PROTEIN MEALS, PT AGREED. PT AND FAMILY REPORTED NO DIET QUESTIONS AT THIS TIME. RD TO FOLLOW. Dx: MODERATE PROTEIN CALORIE MALNUTRITION R/T CHRONIC ILLESS, DECREASED APPETITE AEB 10-20% WEIGHT LOSS IN 2 MONTHS, PROLONGED POOR ORAL INTAKE.-ACTIVE Intervention: 1. HH DIET 2. ENSURE CLEAR TID W/MEALS Monitoring, Evaluation and Goals: 1. PO INTAKE; >75% OF MEALS-IN PROGRESS/NOT MET 2. SUPPLEMENT INTAKE >75% TID-IN PROGRESS/NOT MET 3. GRADUAL WEIGHT GAIN TOWARDS HEALTHY BMI RANGE-NOT MET 4. NORMALIZE GI FUNCTION-NOT MET MONITOR: -PO INTAKE/APPETITE -WEIGHTS -SUPPLEMENT INTAKE [facility] Nutrition Therapy DATE: 02/07/17 Patient: YINKA BRADY Physician: CATHERINE Address: [address] Room/Bed: [address] [place] [address], Zip: [place] [address] Admit Date: 02/02/17 Date of : [birth year] Height: 5 3 Weight: 98 44.6 Recommendations: 1. PLEASE CHANGE DIET ORDER TO HIGH CALORIE/HIGH PROTEIN 2' POOR PO INTAKE NOTED 2. PLEASE WEIGH q 3 DAYS FOR MONITORING PURPOSES, PT IS UNDERWEIGHT 3. CONSIDER ADDING APPETITE STIMULANT, SUCH MEGACE, D/T CONTINUED POOR PO INTAKE/APPETITE 4. APPRECIATE FAMILY AND STAFF TO ENCOURAGE ORAL INTAKE AND ASSIST W/MEALS NEEDED RD WILL F/U PER PROTOCOL PT IS MODERATELY COMPROMISED Respectfully, RAKAN HELMS MS, RD, LD [employer] cc: client file
--- NOTE | ~2017-02-02 | HP ---
Unit #: [id number] #: [id number] Patient: YINKA BRADY [id number] [place] [address] [place], [place] [address] [id number] I MR#: [id number] NAME: YINKA BRADY ROOM: [address] Age: 66 Sex: F Admission Date: 02/02/2017 : 1950 Attending Physician: Shannen Rascon M.D. Primary Care Physician: Parris Napier M.D. HISTORY AND PHYSICAL CHIEF COMPLAINT Short of air. HISTORY OF PRESENT ILLNESS The patient is a 66-year-old female with past medical history of diastolic dysfunction, chronic kidney disease, chronic anemia, C difficile, polysubstance abuse, hypertension, hyperlipidemia, who presented to the emergency department for evaluation of the above. Of note, the patient was hospitalized at [facility] 01/24 through the 01/25/2017 for CHF exacerbation and respiratory failure. The patient states that her breathing returned to baseline. On the morning of admission, she became acutely short of breath. She denies any cough. No fever, no chest pain. She has had nausea but no vomiting. She has had diarrhea with history of C difficile. She states that that is somewhat better. She denies any urinary symptoms. In the emergency department, initial pulse and blood pressure were 96 and 153/110 respectively. Oxygen saturation is listed as 93% on room air. I am told that her oxygen saturation dropped to 88% on room air when EMS arrived at her home. Chest x-ray showed worsening infiltrate on the left. Laboratory notable for BNP of greater than 5000. Urinalysis shows findings concerning for urinary tract infection. She is being admitted to [facility] for evaluation and further treatment. She did receive vancomycin, Zosyn, and tobramycin in the emergency department. She also received 40 mg of Lasix, 325 mg of aspirin, and a p.o. rally pack. PAST MEDICAL HISTORY 1. Admission to [facility] 01/24 through 01/25/2017 for CHF exacerbation and respiratory failure. 2. Diastolic dysfunction with an ejection fraction of 55%. 3. Urinary tract infection with a history of ESBL urinary tract infection. 4. Chronic kidney disease with a discharge creatinine of 1.8. 5. Chronic anemia. 6. History of C difficile. 7. History of polysubstance abuse with tox screens positive for cocaine on 12/27/2016. Patient also has a history of alcohol abuse but, per family, has not had any alcohol for six weeks. 8. Hypertension. 9. Hyperlipidemia. PAST SURGICAL HISTORY Unit #: [id number] #: [id number] Patient: YINKA BRADY 1. Wrist surgery. 2. Right shoulder surgery. 3. EGD. ALLERGIES No known allergies. HOME MEDICATIONS Include: 1. Sodium bicarbonate 650 t.i.d. 2. Magnesium 400 mg b.i.d. 3. Phenergan 25 mg t.i.d. p.r.n. 4. Buspirone 7.5 mg b.i.d. 5. Coreg 6.25 mg b.i.d. 6. Lasix 20 mg daily. 7. Ferrous gluconate 324 mg daily. 8. Pepcid 20 mg daily. 9. Florastor 250 mg daily. 10. Multivitamin daily. 11. Tramadol 50 mg q.6 h. p.r.n. 12. Synthroid 25 mcg daily. 13. Folic acid 1 mg daily. 14. Vitamin B1 100 mg daily. 15. Mirtazapine 7.5 mg daily. 16. Colchicine 0.6 mg b.i.d. 17. Vitamin D weekly. SOCIAL HISTORY The patient is currently living with her sister. She has a history of alcohol abuse but has not had alcohol for six weeks per her family. She denies illicit drug use but tox screen was positive for cocaine on 12/27/2016. She typically walks without assistance. FAMILY HISTORY Notable for diabetes. REVIEW OF SYSTEMS A complete review of systems is negative except as indicated in the HPI. The patient has lost a few pounds over the past couple of weeks. PHYSICAL EXAMINATION VITAL SIGNS: Temperature 97.8, pulse 96, respirations 20, blood pressure 153/110, oxygen saturation 93% on room air but did drop to 88% per EMS. GENERAL: The patient is a female who is frail, in no acute distress. HEENT: Head is atraumatic. Mucous membranes are moist. NECK: Supple. Trachea is midline. LUNGS: Demonstrate decreased breath sounds. Breathing is not labored. HEART: Regular rate and rhythm. ABDOMEN: Soft, nontender. Bowel sounds present in all four quadrants. EXTREMITIES: Nontender with no pedal edema. NEUROLOGIC: Patient is awake and alert. She follows commands. PSYCHIATRIC: Mood and affect are normal. Patient is cooperative. SKIN OF EXAMINED AREAS: Warm and dry. DIAGNOSTIC STUDIES LABORATORY: Complete blood count notable for hemoglobin 9.1, hematocrit 28.1. Troponin less than 0.05. INR is 1.2. Comprehensive metabolic Unit #: [id number] #: [id number] Patient: YINKA BRADY panel is notable for glucose 114, BUN 21, creatinine 2, albumin 2.7, magnesium 2.1. BNP greater than 5000. Blood alcohol level is less than 5. Urinalysis notable for trace leukocyte esterase, 3+ blood, 100-200 rbc's, 5-10 wbc's. Urine toxicology screen is negative. Magnesium 2.2. IMAGING: Chest x-ray shows worsening infiltrate on the left. CARDIOVASCULAR: EKG shows normal sinus rhythm with a rate of 95 beats per minute. ASSESSMENT The patient is a 66-year-old female with: 1. Acute respiratory failure, hypoxic. 2. Healthcare-associated pneumonia. The patient received vancomycin, tobramycin, and Zosyn in the emergency department. 3. Congestive heart failure exacerbation. The patient received Lasix 40 mg in the emergency department. 4. Urinary tract infection. The patient has a history of ESBL. 5. Chronic kidney disease with baseline creatinine of 1.8. 6. Chronic anemia. The patient's hemoglobin was 8 on 01/25/2017, it is 8.1 today. 7. History of Clostridium difficile. 8. History of polysubstance abuse. 9. Hypertension. 10. Hyperlipidemia. PLAN 1. Admit to intermediate level. 2. Supplemental oxygen 2-4 liters to maintain saturations greater than 92%. 3. Blood cultures x2. 4. Sputum culture and sensitivity. 5. Procalcitonin level. 6. Streptococcal and legionella urine antigens. 7. DuoNeb q.4 h. p.r.n. 8. Lasix 40 mg IV daily. 9. Strict I's and O's. 10. Daily weights. 11. Urine culture and sensitivity on urine in the lab. 12. Check magnesium. 13. Multivitamin, thiamine, folic acid. 14. CIWA scoring. 15. Repeat labs in the morning including magnesium. 16. SCDs for DVT prophylaxis. 17. Additional workup and consultants based on above. Dictated by Sandro Ladd/constance Unit #: [id number] #: [id number] Patient: YINKA BRADY TD: 02/02/2017 14:58 JOB #: [id number] HISTORY AND PHYSICAL Page 1 of 1 X Shannen Rascon MD X HISTORY AND PHYSICAL
--- NOTE | ~2017-02-02 | NM69 ---
[facility] A Service of [facility] RADIOLOGY TEXT RESULTS PATIENT: YINKA BRADY LOCATION: [facility] : [birth year] UNIT #: [id number] AGE: [address]: Ginna Ramirez MD SEX: F ORDER DR: [id number] [facility] [address] [place], [place] [address] [id number] MR#: [id number] Acc #: [id number] NAME: YINKA BRADY : 1950 SEX: F STUDY DATE/TIME: 02/04/2017 10:29 UNIT: [facility] ROOM: [facility] STUDY DESCRIPTION: NM Pulm Vent and Perf Attending Physician: Shannen Rascon M.D. Ordering Physician: Jason Saldana M.D. Primary Care Physician: Parris Napier M.D. MEDICAL IMAGING REPORT This report is preliminary unless electronic signature is present EXAM Ventilation/perfusion lung scan, 02/04/2017. HISTORY Short of air for 2 days. History of respiratory failure and congestive heart failure. COMPARISON Chest radiograph, 02/04/2017, and older chest radiographs, including 01/24/2017 and 12/09/2016. FINDINGS There are bilateral pleural effusions, though those have been present for at least 10 days. Ventilation images performed with 36 mCi of technetium-99m DTPA aerosol by inhalation and perfusion images with 6 mCi technetium-99m MAA IV. There is mildly heterogeneous ventilation and perfusion without segmental ventilation/perfusion mismatches. IMPRESSION 1. There is heterogeneous ventilation and perfusion suggesting some element of chronic lung disease, but there are no segmental ventilation/perfusion mismatches to suggest pulmonary embolism. By itself, this would suggest a low likelihood ratio for pulmonary embolism. 2. The presence of pleural effusion may require assessment of an indeterminate or intermediate likelihood ratio, though effusions have been present for at least 10 days, again suggesting some chronicity and, therefore, a low likelihood ratio for pulmonary embolism. [facility] A Service [facility] RADIOLOGY TEXT RESULTS PATIENT: YINKA BRADY LOCATION: [place] [address] : [birth year] UNIT #: [id number] AGE: [address]: Ginna Ramirez MD SEX: F ORDER DR: Dictated by... Daniel Dawkins M.D. THIS IS AN ELECTRONICALLY VERIFIED REPORT Daniel Dawkins M.D. at 02/06/2017 1:21 PM KAYLEEN/brijesh TD: 02/04/2017 14:14 JOB #: [id number] MEDICAL IMAGING REPORT Page 1 of 1 COPY
--- NOTE | ~2017-02-02 | CO ---
Unit #: [id number] #: [id number] Patient: YINKA BRADY [id number] [address] [place], [place] [address] [id number] I MR#: [id number] NAME: YINKA BRADY ROOM: 55 Age: 66 Sex: F Admission Date: 02/02/2017 : 1950 Attending Physician: Ginna Ramirez M.D. Primary Care Physician: Parris Napier M.D. CONSULTATION REPORT REASON FOR CONSULTATION Elevated creatinine level. HISTORY OF PRESENT ILLNESS Patient is a 66-year-old female with known history of chronic kidney disease, stage 4, with a previous creatinine clearance of 17 mL/minute on 24-hour urine collection. Patient also has history of diastolic dysfunction, chronic anemia, C. diff. colitis previously, history of polysubstance abuse, hypertension, and hyperlipidemia. Patient comes in with shortness of breath and chest pressure. Patient's saturation was noted to be around 88% when she was seen by EMS at home. BNP noted to be more than 5000. Patient also receiving antibiotics in the form of tobramycin and vancomycin for underlying UTI. The patient has no reported hematuria, no fevers, and no chills. PAST MEDICAL HISTORY Significant for CHF, COPD, respiratory failure, history of diastolic dysfunction and ejection fraction of 55%, previous history of UTI with ESBL, chronic kidney disease stage 4 with 24-hour urine creatinine clearance of 17 mL/minute and baseline creatinine around 2-2.3, history of anemia, history of C. diff. colitis, previous history polysubstance use with cocaine and long-term alcohol use, hypertension, and hyperlipidemia. PAST SURGICAL HISTORY Significant for wrist surgery, right shoulder surgery, and EGD. ALLERGIES No known drug allergies. MEDICATIONS The home medications include: 1. Sodium bicarbonate 650 mg 3 times daily. 2. Magnesium twice daily. 3. Buspirone 7.5 twice daily. 4. Coreg 6.25 twice daily. 5. Lasix daily. 6. Ferrous sulfate 324 mg daily. 7. Pepcid 20 mg daily. 8. Florastor 250 mg daily. 9. Tramadol p.r.n. 10. Synthroid 25 mcg daily. 11. Colchicine 0.6 mg twice daily. 12. Vitamin D weekly. Unit #: [id number] #: [id number] Patient: YINKA BRADY SOCIAL HISTORY Patient currently is living with her sister and has not taken alcohol for more than a month. FAMILY HISTORY Unremarkable for end stage renal disease. REVIEW OF SYSTEMS CVS: As above. RESPIRATORY: As above. GI: No current diarrhea. : No hematuria. No dysuria. PHYSICAL EXAMINATION GENERAL APPEARANCE: Patient is awake, alert, and oriented. VITAL SIGNS: The temperature is 97.8, heart rate is 86 per minute, blood pressure is 135/99, and saturation is 98%. HEENT: Head is atraumatic. Extraocular movements are intact. Sclerae are anicteric. NECK: Supple. There is no elevation of the JVD. ABDOMEN: There is no organomegaly, no guarding, no rigidity, and no rebound tenderness. HEART: S1 and S2 audible. There is no rub. CHEST: Clear with decreased air entry in the bases. EXTREMITIES: There is trace edema. CLINICAL TECHNOLOGIST: Motor system is intact. Cerebellar system is intact. DIAGNOSTIC STUDIES LABORATORY: WBC 7.9, hematocrit is 28.1, hemoglobin is 9.1, and platelets are 386. The sodium is 136, potassium is 4.7, chloride 103, CO2 23, BUN 21, creatinine 2, glucose 114, calcium is 8.5, magnesium is 2.1, and albumin is 2.7. BNP is more than 5000. Alcohol blood is less than 5 on admission. Urinalysis is 100-200 RBCs with 5-10 WBCs. Urine drug screen is negative for opiates. IMPRESSION 1. Chronic kidney disease, stage 4. Her renal function is currently close to baseline. Volume is satisfactory. I will continue diuresis for volume. 2. UTI. Follow urine cultures. Will discontinue tobramycin and vancomycin until specific cultures are available to prevent any REGINO resulting in ESRD and need for dialysis. 3. Follow cardiology workup. 4. COPD. 5. Coronary artery disease. 6. History of UTI. 7. History of C. diff. colitis. 8. History of CHF with diastolic dysfunction. Dictated bySandro Kee TD: 02/07/2017 08:47 JOB #: [id number] Unit #: [id number] #: [id number] Patient: YINKA BRADY CONSULTATION REPORT Page 1 of 1 X Alan Coulter MD CONSULTATION REPORT
--- NOTE | ~2017-02-02 | CT57 ---
[facility] A Service of [facility] RADIOLOGY TEXT RESULTS PATIENT: YINKA BRADY LOCATION: [facility] 55-01 : [birth year] UNIT #: [id number] AGE: [address]: Shannen Rascon MD SEX: F ORDER DR: [id number] [facility] [address] [place], [place] [address] [id number] I MR#: [id number] #: [id number] NAME: YINKA BRADY : 1950 SEX: F STUDY DATE/TIME: 02/04/2017 11:04 UNIT: [facility] ROOM: [facility] STUDY DESCRIPTION: CT Chest Wo Cont Attending Physician: Shannen Rascon M.D. Ordering Physician: Ginna Ramirez M.D. Primary Care Physician: Parris Napier M.D. MEDICAL IMAGING REPORT This report is preliminary unless electronic signature is present EXAM CT chest without contrast DATE: 02/04/2017 HISTORY 66-year-old female with respiratory failure. Shortness breath since 02/02/2017. Hypertension. Congestive heart failure. COMPARISON PA and lateral chest radiograph 02/04/2017. VQ lung scan 02/04/2017. No prior CT chest of this institution for comparison. PROCEDURE 5 mm axial images through the chest without IV contrast. Sagittal and coronal reformatted images were obtained. This CT exam was performed with one or more of the following radiation dose reduction techniques: automatic exposure control, adjustment of mA and/or kV according to patient size, and iterative reconstruction. FINDINGS Moderate layering bilateral pleural effusions are present, on the right layering to a depth of 5.0 cm. Dense consolidative type changes are present in the bilateral lower lobes with more band-like atelectatic changes in the lingula and right middle lobe. Interstitial thickening is seen particularly in the upper lobe suggesting component of interstitial edema. There is moderate cardiac enlargement. Trace pericardial fluid. Normal caliber thoracic aorta. Benign calcified right hilar lymph node. No pathologic adenopathy identified. Low-density left adrenal nodule compatible with an adenoma (noncontrast Hounsfield units 9.8). No acute osseous abnormalities are identified. [facility] A Service of [facility] RADIOLOGY TEXT RESULTS PATIENT: YINKA BRADY LOCATION: [facility] 551-01 : [birth year] UNIT #: [id number] AGE: [address]: Shannen Rascon MD SEX: F ORDER DR: IMPRESSION 1. Features of interstitial edema with moderate layering bilateral pleural effusions. Moderate cardiomegaly. 2. Dense bibasilar consolidations. Correlate clinically for pneumonia. More band-like atelectatic type changes are present within the right middle lobe and lingula. 3. Left adrenal adenoma. Dictated by... Razia Neville M.D. THIS IS AN ELECTRONICALLY VERIFIED REPORT Razia Neville M.D. at 02/05/2017 7:08 AM KATIE/karolina TD: 02/04/2017 21:40 JOB #: [id number] MEDICAL IMAGING REPORT Page 1 of 1 COPY
--- NOTE | ~2017-02-02 | A ---
[facility] Nutrition Therapy DATE: 02/04/17 Patient: YINKA BRADY Physician: CATHERINE Address: [address] Room/Bed: [address] [place] [address], Zip: [place] [address] Admit Date: 02/02/17 Date of : [birth year] Height: 5 3 Weight: 97 44.2 NUTRITIONAL ASSESSMENT: REASON: Seen due to low BMI; RD last assessed for the same on 01/25/17 Admitting Dx: 66 y/o female admitted with PNA, acute respiratory failure PMH: See H&P/last RD note dated 01/25/17 Anthropometrics: Ht: 63", Wt: 97 lbs, previous admission wt 01/25/17: 101 lbs, BMI: 17 (underweight) Labs: BUN 24, Creat 2.3, GFR 21.3 Meds: Thiamine, Folic acid, Therapeutic formula, Phenergan, Synthroid, Coreg, Pepcid I/O & Bowel function: Last BM 02/03 (loose), hx C. diff Skin Integrity: Dry/flaky skin + scab + bruise noted, no edema Estimated Nutrition Needs: Increased due to weight loss, underweight status Assessment: Chart reviewed, events noted. Patient recently assessed by RD on 01/25/17 for underweight status- note reviewed. Pt has history of poor appetite, weight loss of 4 lbs in 10 days noted if weights are accurate. UBW 115-118 lbs about a year ago, overall weight loss suspected to be approx. 20 lbs in 1 year (17% loss; significant) due to recurrent illness and poor oral intake. Patient qualifies for moderate protein calorie malnutrition. She is on a healthy heart diet, likes Ensure Clear pruitt- will order. Suggesting regular diet to liberalize food choices- will write in chart. See recs below, will follow hospital course. Dx: Moderate protein calorie malnutrition r/t chronic illness, decreased appetite AEB 10-20% weight loss in 6-12 months (lost 17% in approx. 1 year), prolonged poor oral intake < 75% energy needs for > 1 month, BMI 17. Intervention: Regular diet + Ensure Clear TID, appetite stimulant? Monitoring, Evaluation and Goals: 1. PO intake > 75% of meals. 2. Supplement intake > 75% TID. 3. Gradual weight gain towards a healthy BMI range. 4. Normalize GI function. [facility] Nutrition Therapy DATE: 02/04/17 Patient: YINKA BRADY Physician: CATHERINE Address: [address] Room/Bed: [address] [place] [address], Zip: [place] [address] Admit Date: 02/02/17 Date of : [birth year] Height: 5 3 Weight: 97 44.2 Monitor: Per protocol, criteria to determine if above goals met Recommendations: 1. Change diet to high calorie/high protein, appreciate family/staff to encourage oral intake and assist with meals as needed. 2. RD to order Ensure Clear mixed pruitt TID to increase oral kcal/protein intake. 3. Weigh q 3 days for monitoring purposes, as the patient is underweight. 4. Consider adding a daily appetite stimulant such as Megace to the patient's medication regimen due to continued poor appetite/oral intake. 5. Moderate protein calorie malnutrition diagnosed (see nutrition diagnosis and physical malnutrition assessment form). RD will follow hospital course Moderate nutrition risk Respectfully, Angelica Brooks, RD, LD [facility] Nutrition[facility] Services [facility] cc: client file
--- NOTE | ~2017-02-02 | EKG ---
PATIENT: YINKA BRADY UNIT #: [id number] Ventricular Rate: 103 BPM Atrial Rate: 103 BPM P-R Interval: 190 ms QRS Duration: 78 ms Q-T Interval: 378 ms QTC Calculation(Bezet): 495 ms P [place]: 59 degrees Calculated R [place]: 105 degrees Calculated T [place]: 4 degrees Diagnosis Line: Sinus tachycardia Diagnosis Line: Rightward axis Diagnosis Line: Cannot rule out Anterior infarct (cited on or Diagnosis Line: before 02-FEB-2017) Diagnosis Line: Abnormal ECG Diagnosis Line: When compared with ECG of 02-FEB-2017 08:57, Diagnosis Line: (unconfirmed) Diagnosis Line: Serial changes of Anterior infarct Present Diagnosis Line: Confirmed by JEANETH BASHIR MD ([id number]) on 02/04/2017 Diagnosis Line: 5:45:12 AM INTERPRETING MD: MCKAY LOPEZ
--- NOTE | ~2017-02-02 | CR63 ---
[facility] A Service of [facility] RADIOLOGY TEXT RESULTS PATIENT: YINKA BRADY LOCATION: [facility] 55- : [birth year] UNIT #: [id number] AGE: [address]: Shannen Rascon MD SEX: F ORDER DR: [id number] [facility] [address] [place], [place] [address] [id number] I MR#: [id number] Acc #: [id number] NAME: YINKA BRADY : 1950 SEX: F STUDY DATE/TIME: 02/04/2017 1104 UNIT: [facility] ROOM: [facility] STUDY DESCRIPTION: CR Chest 2 View Attending Physician: Shannen Rascon M.D. Ordering Physician: Ramy Tavares M.D. Primary Care Physician: Parris Napier M.D. MEDICAL IMAGING REPORT This report is preliminary unless electronic signature is present EXAM Chest, 2 views, 02/04/2017, 1104 hours. CLINICAL HISTORY Shortness of air since 02/02/2017. History of hypertension and CHF. Correlate with ventilation-perfusion lung scan. COMPARISON Chest CT, 02/04/2017. FINDINGS Upright PA and lateral views of the chest demonstrate enlarged cardiac silhouette with tortuous aorta. There is mild pulmonary venous distension without definite edema. There is hazy left midlung density which could represent atelectasis or pneumonia. There are moderate-sized bilateral pleural effusions. IMPRESSION Moderately enlarged cardiac silhouette representing cardiomegaly on today's CT scan. There is a mildly tortuous aorta. There is hazy left midlung density likely atelectasis, less likely pneumonia. There are moderate-sized bilateral pleural effusions. Dictated by... Neeru Chen M.D. THIS IS AN ELECTRONICALLY VERIFIED REPORT Neeru Chen M.D. at 02/05/2017 9:28 AM IGNACIA/demond TD: 02/04/2017 15:18 [facility] A Service of [facility] RADIOLOGY TEXT RESULTS PATIENT: YINKA BRADY LOCATION: [facility] 551-01 : [birth year] UNIT #: [id number] AGE: [address]: Shannen Rascon MD SEX: F ORDER DR: JOB #: [id number] MEDICAL IMAGING REPORT Page 1 of 1 COPY
--- NOTE | ~2017-02-02 | EKG ---
PATIENT: YINKA BRADY UNIT #: [id number] Ventricular Rate: 96 BPM Atrial Rate: 96 BPM P-R Interval: 192 ms QRS Duration: 86 ms Q-T Interval: 390 ms QTC Calculation(Bezet): 492 ms P Likely: 70 degrees Calculated R Likely: 113 degrees Calculated T Likely: -22 degrees Diagnosis Line: Normal sinus rhythm Diagnosis Line: Left posterior fascicular block Diagnosis Line: Cannot rule out Anterior infarct (cited on or Diagnosis Line: before 02-FEB-2017) Diagnosis Line: T wave abnormality, consider lateral ischemia Diagnosis Line: Abnormal ECG Diagnosis Line: When compared with ECG of 24-JAN-2017 19:59, Diagnosis Line: Left posterior fascicular block is now Present Diagnosis Line: Serial changes of evolving Anterior infarct Diagnosis Line: Present Diagnosis Line: Confirmed by JEANETH BASHIR MD ([id number]) on 02/04/2017 Diagnosis Line: 5:36:11 AM INTERPRETING MD: MCKAY LOPEZ
--- NOTE | ~2017-02-02 | DS ---
Unit #: [id number] #: [id number] Patient: YINKA BRADY [id number] [address] [address] [id number] I MR#: [id number] NAME: YINKA BRADY ROOM: 55 Age: 66 Sex: F Admission Date: 02/02/2017 : 1950 Discharge Date: 02/08/2017 Attending Physician: Ginna Ramirez M.D. Primary Care Physician: Parris Napier M.D. DISCHARGE SUMMARY REASON FOR ADMISSION Dyspnea. HISTORY OF PRESENT ILLNESS The patient is a 66-year-old female with underlying history of diastolic dysfunction, chronic kidney disease, anemia of chronic disease, Clostridium difficile colitis with recent treatment, alcohol and polysubstance abuse, chronic pain syndrome, hypertension, hyperlipidemia, who presented secondary to dyspnea. She had recently been admitted at the beginning part of January for heart failure exacerbation. She had gone home at that time. She stated that she did not show any improvement and, therefore, presented back to the ER for further evaluation. Initial chest x-ray finding showed worsening infiltrate on the left side. BNP was greater than 5,000. Initial urinalysis showed findings concerning for urinary tract infection and, therefore, she was admitted for the same. Initially, secondary to recent hospital stay, she was placed on healthcare-acquired pneumonia protocol. These antibiotics were gradually deescalated. Hospital course yielded that it was more likely fluid overload rather than acute infectious etiology. She did undergo, in regards to her abnormal chest x-ray, a CT chest which did show moderate layering bilateral pleural effusions, dense consolidative type changes were noted in the bilateral lower lobes. Trace pericardial fluid was also noted. Therefore, findings were more consistent with interstitial edema as well as pleural effusions. Therefore, her antibiotics were deescalated to Zosyn IV to which she was maintained on through her hospital course. Today, her CBC yields a white count of 6.3. She has otherwise remained afebrile through hospital course. I also noted that she had recently been treated and evaluated as an outpatient as well as recent inpatient stay for C. difficile colitis. She was on Flagyl recently. She developed some loose stools while she was here. She underwent a C. difficile assessment which was negative. Her diarrhea did resolve with the administration of antidiarrheals as well as Florastor. In regards to her dyspnea as well as prior history of heart failure, consultation was placed to Dr. Saldana of Cardiology Services. The patient did undergo 2D echocardiogram which did show new systolic heart failure with an ejection fraction 25 to 30%. The LV dysfunction was new compared to the prior echocardiogram which was done on January 16, 2017. Valvular heart disease was also noted. Unit #: [id number] #: [id number] Patient: YINKA BRADY Because of these changes, over the past three weeks, the patient underwent cardiac catheterization performed by Dr. Saldana on 02/07/2017. The patient's coronaries were normal but final impression did reveal findings consistent with Takotsubo cardiomyopathy as well as nonischemic cardiomyopathy. Contrast was not administered secondary to patient's prior history of chronic kidney disease and a baseline creatinine close to 2.0. Cardiology Services continued to follow the patient through hospital course. She was maintained on dobutamine drip which has seen been discontinued this morning. Cardiology Services will review final discharge medications but she will be stable for discharge home. She will likely follow up as an outpatient with Cardiology Services over the next two to three months. In regards to the patient's prior history of chronic kidney disease, her baseline creatinine is close to 2.0. Consultation was placed to Dr. No and associates and her creatinine did remain otherwise stable and there were no acute events noted. She does have a prior history of anemia. Baseline hemoglobin close to 8, likely of chronic disease. She did receive Epogen while she was here. This will be followed as an outpatient. She does have a prior history of major depressive disorder as well as prior history of alcohol abuse and failure to thrive. She was initiated on Lexapro while she was here. She was started on Remeron on one of her prior hospital admissions which will be continued at bedtime. Her BuSpar dosage was also increased to 15 mg p.o. b.i.d. This effectively will be followed as an outpatient as well. At this point, the patient is clinically stable for discharge home. She will be discharged to live with her sister. [facility]/home health services will follow the patient as an outpatient. Overall, her long-term prognosis is guarded and is dependent on her compliance with medication regimen as well as outpatient followup. FINAL DISCHARGE DIAGNOSES 1. Dyspnea, multifactorial in origin. 2. New systolic heart failure on chronic diastolic heart failure. 3. Acute on chronic diastolic heart failure seen on day of admission. 4. Acute systolic heart failure diagnosed this admission. 5. Takotsubo cardiomyopathy. 6. Nonischemic cardiomyopathy. 7. Fluid overload/pleural effusions, now resolved. 8. Acute kidney injury on chronic kidney disease. Baseline creatinine 2.0. 9. Anemia of chronic disease. 10. Failure to thrive. 11. Major depressive disorder. 12. Alcohol abuse. 13. Remote history of substance abuse. 14. Chronic osteoarthritis. 15. Gastroesophageal reflux disease. 16. Recent Clostridium Difficile colitis, now negative/treated. FINAL DISCHARGE MEDICATIONS To be reviewed by Cardiology Services prior to discharge but include the Unit #: [id number] #: [id number] Patient: YINKA BRADY followin. DuoNeb aerosol solution q.6 hours scheduled. 2. Sodium bicarbonate 650 mg p.o. q.8. 3. Lexapro 10 mg p.o. daily. 4. Remeron 7.5 mg p.o. q.h.s. 5. Phenergan 25 mg p.o. t.i.d. p.r.n. 6. Lipitor 80 mg p.o. q.h.s. 7. BuSpar 15 mg p.o. b.i.d. 8. Coreg 12.5 mg p.o. b.i.d. 9. Hydralazine 25 mg p.o. b.i.d. 10. Pepcid 20 mg p.o. daily. 11. Ferrous gluconate 324 mg p.o. daily. 12. Florastor daily. 13. Multivitamin daily. 14. Ultram 50 mg p.o. q.6 p.r.n. moderate pain. 15. Synthroid 25 mcg p.o. daily. 16. Sublingual nitro as directed. 17. Folic acid 1 mg p.o. daily. DISCHARGE CONDITION Stable. DISCHARGE DISPOSITION Home. FOLLOWUP Dr. Brandi Garcia, [facility], [address] [place] [address], . Information given to patient. Seven to 10 days. Dictated by... Ginna Ramirez M.D. MICAH/michelle TD: 02/10/2017 13:06 JOB #: [id number] DISCHARGE SUMMARY Page 1 of 1 X Ginna aRmirez MD DISCHARGE SUMMARY
--- NOTE | ~2017-02-02 | EKG ---
PATIENT: YINKA BRADY UNIT #: [id number] Ventricular Rate: 84 BPM Atrial Rate: 84 BPM P-R Interval: 180 ms QRS Duration: 78 ms Q-T Interval: 414 ms QTC Calculation(Bezet): 489 ms P [place]: 65 degrees Calculated R [place]: 70 degrees Calculated T [place]: -110 degrees Diagnosis Line: Normal sinus rhythm Diagnosis Line: Nonspecific T wave abnormality Diagnosis Line: Prolonged QT Diagnosis Line: Abnormal ECG Diagnosis Line: When compared with ECG of 03-FEB-2017 08:15, Diagnosis Line: QRS axis Shifted left Diagnosis Line: Confirmed by SHAHRAM DAVENPORT MD ([id number]) on Diagnosis Line: 02/08/2017 7:37:42 AM INTERPRETING EDYTA MELGAR
[~2017-02-02 08:42] MED LIST changes: +BUSPIRONE HCL7.5 MG PO; +KLOR-CON SPRIN10 MEQ PO; +VITAMIN B-12250 MCG PO; +VITAMIN B12-FO1 EACH PO
[2017-02-02] MEDS ORDERED: PATIENT'S PHARMACY (09:00)
[2017-02-02 09:46] LABS: BASOPHIL# 0.1 X10e3 (0-0.3); BASOPHIL% 0.7 % (0-2.5); DIFF IND NO; EOSINOPHIL# 0.2 X10e3 (0-0.7); EOSINOPHIL% 2.4 % (0.0-7.0); HEMATOCRIT 28.1 % (35.0-45.0); HEMOGLOBIN 9.1 gm/dL (12.0-16.0); LYMPHOCYTE# 1.1 X10e3 (1.0-3.5); LYMPHOCYTE% 14.6 % (17.0-45.0); MEAN CELL VOLUME 94.6 FL (83-96); MEAN CORPUSCULAR HEMOGLOBIN 30.8 PG (28-34); MEAN CORPUSCULAR HGB CONC 32.5 g/dL (30-36); MEAN PLATELET VOLUME 9.4 FL (6.5-11.5); MONOCYTE# 0.9 X10e3 (0-1.0); MONOCYTE% 11.3 % (3.0-12.0); NEUTROPHIL# 5.6 X10e3 (1.5-7.1); PLATELET COUNT 386 X10e3 (140-420); RED BLOOD COUNT 2.97 X10e (3.90-5.30); RED CELL DISTRIBUTION WIDTH 15.1 % (11.0-15.5); WHITE BLOOD COUNT 7.9 X10e3 (4.0-10.5)
[2017-02-02 09:54] LABS: POC - CKMB 1.1 ng/mL (0.0-7.9); POC - TROPONIN <0.05 ng/mL (<=0.05)
[2017-02-02 09:58] LABS: INR 1.2; PARTIAL THROMBOPLASTIN TIME 24.3 SECONDS (23.5-31.3); PROTHROMBIN TIME (PATIENT) 13.1 SECONDS (9.6-11.5)
[2017-02-02 10:15] LABS: ALBUMIN SERUM 2.7 g/dL (3.5-5.0); BILIRUBIN, DIRECT 0.4 mg/dL (0.0-0.2); BILIRUBIN,INDIRECT 0.6 mg/dL (0.0-0.9); BUN/CREATININE RATIO 10.5; CALCIUM SERUM 8.5 mg/dL (8.4-10.2); GLOM FILT RATE Estimated 25.2 mL/min (>60); MAGNESIUM 2.1 mg/dL (1.6-3.0); POTASSIUM 4.7 mmol/L (3.5-5.1); PROTEIN TOTAL SERUM 6.7 g/dL (6.0-8.3)
[2017-02-02] MEDS ORDERED: SODIUM BICARBO650 MG PO (10:37)
[2017-02-02] MEDS ORDERED: MAG-OX 400400 M1 PO (10:38)
[2017-02-02] MEDS ORDERED: BUSPIRONE HCL7.5 MG PO (10:39)
[2017-02-02] MEDS ORDERED: COREG6.25 M1 PO (10:39)
[2017-02-02] MEDS ORDERED: PHENERGAN25 MG PO (10:39)
[2017-02-02] MEDS ORDERED: LASIX20 MG PO (10:39)
[2017-02-02] MEDS ORDERED: FERROUS GLUCON324 M1 PO (10:40)
[2017-02-02] MEDS ORDERED: FAMOTIDINE PO (10:40)
[2017-02-02] MEDS ORDERED: MULTI VITAMIN1 EACH PO (10:41)
[2017-02-02] MEDS ORDERED: FLORASTORKIDS250 MG PO (10:41)
[2017-02-02] MEDS ORDERED: TRAMADOL HCL50 M1 PO (10:43)
[2017-02-02] MEDS ORDERED: FOLIC ACID1 MG PO (10:45)
[2017-02-02] MEDS ORDERED: SYNTHROID25 MCG PO (10:45)
[2017-02-02] MEDS ORDERED: MIRTAZAPINE7.5 MG PO (10:46)
[2017-02-02] MEDS ORDERED: VITAMIN B1 PO (10:46)
[2017-02-02] MEDS ORDERED: COLCRYS0.6 M2 PO (10:48)
[2017-02-02] MEDS ORDERED: VITAMIN D PO (10:56)
[2017-02-02 11:38] LABS: POC - CKMB 1.3 ng/mL (0.0-7.9); POC - TROPONIN <0.05 ng/mL (<=0.05)
[2017-02-02 12:14] LABS: URINE SOURCE CLEAN CATCH
[2017-02-02 12:20] LABS: URINE APPEARANCE CLEAR; URINE BILIRUBIN NEG (NEG); URINE BLOOD 3+ (NEG); URINE COLOR YELLOW; URINE GLUCOSE NEG (NEG); URINE KETONE NEG (NEG); URINE LEUKOCYTE ESTERASE TRACE (NEG); URINE NITRATE NEG (NEG); URINE PROTEIN NEG (NEG); URINE SPECIFIC GRAVITY 1.012 (1.003-1.035)
[2017-02-02 12:22] LABS: CULTURE INDICATED? YES; URBCS1 AUWI 100-200 /[HPF] (0-2); URINE BACTERIA AUWI NEG (NEGATIVE); URINE SQUAMOUS EPITHELIAL CELL OCC /[HPF]
[2017-02-02 13:02] LABS: AMPHETAMINE NEG (NEG); BARBITURATES NEG (NEG); BENZODIAZEPINES NEG (NEG); COCAINE NEG (NEG); MARIJUANA NEG (NEG); OPIATES NEG (NEG); TRICYCLIC ANTIDEPRESSANTS NEG (NEG); U METHADONE NEG (NEG)
[2017-02-02 13:05] LABS: MAGNESIUM 2.2 mg/dL (1.6-3.0)
[2017-02-02 13:41] LABS: PROCALCITONIN 0.23 NG/ML
[2017-02-02 18:21] LABS: CK TOTAL 29 IU/L (26-140)
[2017-02-03 00:03] LABS: CK TOTAL 26 IU/L (26-140)
[2017-02-03 07:40] LABS: BASOPHIL# 0.2 X10e3 (0-0.3); BASOPHIL% 2.5 % (0-2.5); EOSINOPHIL# 0.3 X10e3 (0-0.7); EOSINOPHIL% 3.8 % (0.0-7.0); HEMATOCRIT 26.6 % (35.0-45.0); HEMOGLOBIN 8.7 gm/dL (12.0-16.0); LYMPHOCYTE# 1.2 X10e3 (1.0-3.5); LYMPHOCYTE% 16.8 % (17.0-45.0); MEAN CELL VOLUME 94.3 FL (83-96); MEAN CORPUSCULAR HEMOGLOBIN 30.9 PG (28-34); MEAN CORPUSCULAR HGB CONC 32.8 g/dL (30-36); MEAN PLATELET VOLUME 9.4 FL (6.5-11.5); MONOCYTE# 0.8 X10e3 (0-1.0); MONOCYTE% 12.4 % (3.0-12.0); NEUTROPHIL# 4.4 X10e3 (1.5-7.1); NEUTROPHIL% 64.5 % (40-75); PLATELET COUNT 367 X10e3 (140-420); RED BLOOD COUNT 2.82 X10e (3.90-5.30); RED CELL DISTRIBUTION WIDTH 14.9 % (11.0-15.5); WHITE BLOOD COUNT 6.9 X10e3 (4.0-10.5)
[2017-02-03 07:44] LABS: DIFF IND NO
[2017-02-03 08:08] LABS: ALBUMIN SERUM 2.6 g/dL (3.5-5.0); BILIRUBIN,TOTAL 1.3 mg/dL (0.2-2.0); BUN/CREATININE RATIO 9.56; CALCIUM SERUM 8.4 mg/dL (8.4-10.2); CREATININE SERUM 2.3 mg/dL (0.6-1.4); GLOM FILT RATE Estimated 21.3 mL/min (>60); MAGNESIUM 2.1 mg/dL (1.6-3.0); POTASSIUM 4.9 mmol/L (3.5-5.1); PROTEIN TOTAL SERUM 6.2 g/dL (6.0-8.3)
[2017-02-03 09:53] LABS: CK TOTAL 25 IU/L (26-140)
[2017-02-04 07:24] LABS: HEMATOCRIT 23.9 % (35.0-45.0); MEAN CELL VOLUME 93.1 FL (83-96); MEAN CORPUSCULAR HGB CONC 33.3 g/dL (30-36); MEAN PLATELET VOLUME 9.2 FL (6.5-11.5); RED BLOOD COUNT 2.57 X10e (3.90-5.30); RED CELL DISTRIBUTION WIDTH 14.7 % (11.0-15.5); WHITE BLOOD COUNT 5.9 X10e3 (4.0-10.5)
[2017-02-04 07:55] LABS: BUN/CREATININE RATIO 10.43; CALCIUM SERUM 8.4 mg/dL (8.4-10.2); CREATININE SERUM 2.3 mg/dL (0.6-1.4); GLOM FILT RATE Estimated 21.3 mL/min (>60); POTASSIUM 4.4 mmol/L (3.5-5.1)
[2017-02-05 06:23] LABS: HEMATOCRIT 23.8 % (35.0-45.0); HEMOGLOBIN 7.8 gm/dL (12.0-16.0); MEAN CORPUSCULAR HEMOGLOBIN 30.6 PG (28-34); MEAN CORPUSCULAR HGB CONC 32.9 g/dL (30-36); MEAN PLATELET VOLUME 8.9 FL (6.5-11.5); RED BLOOD COUNT 2.55 X10e (3.90-5.30); RED CELL DISTRIBUTION WIDTH 14.7 % (11.0-15.5); WHITE BLOOD COUNT 6.3 X10e3 (4.0-10.5)
[2017-02-05 07:23] LABS: FERRITIN 380 ng/mL (11-307)
[2017-02-05 08:39] LABS: BUN/CREATININE RATIO 9.56; CALCIUM SERUM 8.2 mg/dL (8.4-10.2); CREATININE SERUM 2.3 mg/dL (0.6-1.4); GLOM FILT RATE Estimated 21.3 mL/min (>60); POTASSIUM 4.3 mmol/L (3.5-5.1); PREALBUMIN 6.6 mg/dL (17.0-42.0)
[2017-02-05 10:02] LABS: CK TOTAL 14 IU/L (26-140)
[2017-02-06 06:11] LABS: HEMATOCRIT 23.8 % (35.0-45.0); MEAN CELL VOLUME 93.3 FL (83-96); MEAN CORPUSCULAR HEMOGLOBIN 31.3 PG (28-34); MEAN CORPUSCULAR HGB CONC 33.5 g/dL (30-36); RED BLOOD COUNT 2.55 X10e (3.90-5.30)
[2017-02-06 07:24] LABS: BUN/CREATININE RATIO 9.54; CALCIUM SERUM 8.5 mg/dL (8.4-10.2); CREATININE SERUM 2.2 mg/dL (0.6-1.4); GLOM FILT RATE Estimated 22.5 mL/min (>60); POTASSIUM 4.3 mmol/L (3.5-5.1)
[2017-02-07 06:17] LABS: HEMATOCRIT 25.5 % (35.0-45.0); HEMOGLOBIN 8.3 gm/dL (12.0-16.0); MEAN CELL VOLUME 94.1 FL (83-96); MEAN CORPUSCULAR HEMOGLOBIN 30.7 PG (28-34); MEAN CORPUSCULAR HGB CONC 32.6 g/dL (30-36); MEAN PLATELET VOLUME 9.6 FL (6.5-11.5); RED BLOOD COUNT 2.71 X10e (3.90-5.30); RED CELL DISTRIBUTION WIDTH 15.2 % (11.0-15.5)
[2017-02-07 06:58] LABS: INR 1.3; PARTIAL THROMBOPLASTIN TIME 30.3 SECONDS (23.5-31.3); PROTHROMBIN TIME (PATIENT) 13.5 SECONDS (9.6-11.5)
[2017-02-07 07:29] LABS: BUN/CREATININE RATIO 8.18; CALCIUM SERUM 8.3 mg/dL (8.4-10.2); CREATININE SERUM 2.2 mg/dL (0.6-1.4); GLOM FILT RATE Estimated 22.5 mL/min (>60); POTASSIUM 4.1 mmol/L (3.5-5.1)
[2017-02-08 07:27] LABS: HEMATOCRIT 24.6 % (35.0-45.0); HEMOGLOBIN 8.1 gm/dL (12.0-16.0); MEAN CELL VOLUME 93.7 FL (83-96); MEAN CORPUSCULAR HEMOGLOBIN 30.8 PG (28-34); MEAN CORPUSCULAR HGB CONC 32.8 g/dL (30-36); MEAN PLATELET VOLUME 9.7 FL (6.5-11.5); RED BLOOD COUNT 2.62 X10e (3.90-5.30); RED CELL DISTRIBUTION WIDTH 15.2 % (11.0-15.5); WHITE BLOOD COUNT 6.3 X10e3 (4.0-10.5)
[2017-02-08 07:59] LABS: BUN/CREATININE RATIO 7.89; CALCIUM SERUM 8.3 mg/dL (8.4-10.2); CREATININE SERUM 1.9 mg/dL (0.6-1.4); GLOM FILT RATE Estimated 26.8 mL/min (>60); POTASSIUM 3.5 mmol/L (3.5-5.1)
[2017-02-08] MEDS ORDERED: ALBUTEROL MININEB NEB (15:22)
[2017-02-08] MEDS ORDERED: ULTRAM PO (15:23)
[2017-02-08] MEDS ORDERED: LEXAPRO PO (15:23)
[2017-02-08] MEDS ORDERED: BUSPAR15 M2 PO (15:24)
[2017-02-08] MEDS ORDERED: DUONEB NEB (15:25)
[2017-02-08] MEDS ORDERED: BUMEX2 MG PO (15:26)
[2017-02-08] MEDS ORDERED: K-DUR20 ME1 PO (15:26)
[2017-02-08] MEDS ORDERED: COREG PO (15:31)
[2017-02-08] MEDS ORDERED: HYDRALAZINE HCL25 MG PO (15:31)
== END 2017-02-08 17:13 | disposition home health service (06) | DRG 286 ==
LOC: CED 08:42 → CEDOF 11:30 → C5B 11:30 → CED 12:22 → CEDOF 12:22 → C5B 18:38
PROVIDERS: Family Medicine; Internal Medicine Cardiovascular Disease; Student in an Organized Health Care Education/Training Program
PROC: B24BYZZ Ultrasonography of Heart with Aorta using Other Contrast (ICD-10-PCS; 2017-02-04)
PROC: 4A023N7 Measurement of Cardiac Sampling and Pressure, Left Heart, Percutaneous Approach (ICD-10-PCS; principal; 2017-02-07)
PROC: B211YZZ Fluoroscopy of Multiple Coronary Arteries using Other Contrast (ICD-10-PCS; 2017-02-07)
PROC: B215YZZ Fluoroscopy of Left Heart using Other Contrast (ICD-10-PCS; 2017-02-07)
DX: I13.0 Hypertensive heart and chronic kidney disease with heart failure and stage 1 through stage 4 chronic kidney disease, or unspecified chronic kidney disease (principal); J96.01 Acute respiratory failure with hypoxia; E43 Unspecified severe protein-calorie malnutrition; J18.9 Pneumonia, unspecified organism; N18.4 Chronic kidney disease, stage 4 (severe); I42.8 Other cardiomyopathies; I51.81 Takotsubo syndrome; I50.43 Acute on chronic combined systolic (congestive) and diastolic (congestive) heart failure; N39.0 Urinary tract infection, site not specified; Z68.1 Body mass index [BMI] 19.9 or less, adult; D64.89 Other specified anemias; E78.5 Hyperlipidemia, unspecified; F10.10 Alcohol abuse, uncomplicated; F32.9 Major depressive disorder, single episode, unspecified
CPT/HCPCS: 36415; 71010; 71020; 71250; 78582; 80048; 80053; 80076; 80307; 81003; 82274; 82308; 82550; 82553; 82607; 82728; 83540; 83550; 83735; 83880; 84134; 84484; 85025; 85027; 85610; 85730; 87040; 87086; 87449; 87493; 87899; 93005; 93308; 94640; 94760; 99285; A9540; A9567; C1769; C1887; C1894; G0480; J0885; J1250; J1644; J1940; J2250; J2543; J2916; J3010; J3260; J3370

== ENCOUNTER 2017-02-10 18:00 | Inpatient (IN) | payer MEDICARE, OTHER ==
--- NOTE | ~2017-02-10 | CO ---
Unit #: [id number] #: [id number] Patient: SOFIA PALMA [id number] [facility] [address] [place] [address] [id number] I MR#: [id number] NAME: SOFIA PALMA ROOM: 331 Age: 66 Sex: F Admission Date: 02/10/2017 : 1950 Attending Physician: Stacy Mohamud M.D. Primary Care Physician: Parris Napier M.D. Consultation Date: 02/17/2017 CONSULTATION REPORT REASON FOR CONSULTATION Depression and anxiety. HISTORY OF PRESENT ILLNESS Ms. Sofia Palma is a 66-year-old white female, seen in room 331, bed 1 on 02/17/2017 at [facility]. The patient reports that she was seen by Dr. Saldana, who referred that lot of her problem is because of anxiety and stress. The patient reports that she was on Xanax and trazodone in the past. Then, she stopped medication. The patient reports medication helped her in the past. The patient reported loss of a family member recently almost a year ago. Currently, on no psychotropic medication. No counseling, feeling sad, depressed, anxious. The patient currently denied any suicidal or homicidal ideation. Denied any psychotic symptom, but reported feeling sad, depressed, anxious, trouble sleeping. Vital signs; temperature 98.1, pulse 68, respirations 16, blood pressure 106/70, oxygen saturation 96%. The patient reports that she was prescribed melatonin here, which seems to be helping. The patient reports that she would like to get some more help. The patient was admitted with the acute hypoxic respiratory failure. The patient has a history of valvular heart disease, history of alcohol abuse in the past, history of depression, and treated with BuSpar and Lexapro. PAST PSYCHIATRIC HISTORY Remarkable for history of depression, outpatient treatment as mentioned above. No history of any suicide attempt. PAST MEDICAL HISTORY Remarkable for history of systolic heart failure, valvular heart disease, history of recent C. difficile, failure to thrive, chronic kidney disease, anemia, remote history of polysubstance abuse, prior history of alcohol abuse, hypertension, hyperlipidemia, major depressive disorder. MEDICATIONS The patient is on DuoNeb, Bumex, potassium, hydralazine, Coreg, folic acid, Remeron, Ultram, Lexapro, BuSpar, Pepcid, Florastor, multivitamin, Synthroid, sodium bicarb, Phenergan, Lasix, ferrous gluconate. FAMILY HISTORY AND SOCIAL HISTORY The patient has a good support system. No history of recent substance abuse, but in the past. REVIEW OF SYSTEMS Complete review of systems unremarkable. Unit #: [id number] #: [id number] Patient: SOFIA PALMA MENTAL STATUS EXAMINATION Vital signs; temperature 98.1, pulse 68, respirations 16, blood pressure 106/70, oxygen saturation 96%. General appearance; the patient dressed casually, thin built, sitting comfortably in bed. Attention span and concentration, fair. Speech, regular rate and coherent. Oriented in time, place, and person. Mood and affect, sad, dysphoric, flat, anxious. Thought process, coherent. Thought content, the patient denied any thoughts of harming self or others. Denied any psychotic symptom. Recent and remote memory, fair. Language, intact. Fund of knowledge, fair. Insight and judgment, fair to slightly impaired. DIAGNOSES Psychiatric: Major depressive disorder, recurrent, severe, F33.2; anxiety disorder, not otherwise specified, F40.01; history of alcohol abuse, mild, F10.20. Secondary diagnosis: Deferred. Medical diagnosis: Please refer to H and P. Stressors: Psychosocial stressors. ASSESSMENT AND PLAN 1. Supportive psychotherapy and psychoeducation provided to the patient. 2. Educated about benefits and side effects of medication and course and prognosis of illness. The patient would like to continue with current medication at this time on Lexapro 10 mg daily, BuSpar 15 mg b.i.d., and melatonin 3 mg at bedtime. If needed, consider further adjustment of medication. The patient is also on Ativan 0.5 mg q.6 hours p.r.n. for anxiety. The patient was given crisis line #[phone] and advised to follow up in outpatient clinic after discharge at [facility] outpatient program. Please feel free to call if any questions, telephone #[phone]. Dictated by... Sandro Smith/nic TD: 02/19/2017 09:26 JOB #: [id number] CONSULTATION REPORT Page 1 of 1 X Kip Oliver MD CONSULTATION REPORT
--- NOTE | ~2017-02-10 | CR72 ---
[facility] A Service of [facility] RADIOLOGY TEXT RESULTS PATIENT: YINKA BRADY LOCATION: [facility] : [birth year] UNIT #: [id number] AGE: [address]: Tarik Lovelace MD SEX: F ORDER DR: [id number] [facility] [address] [place], [place] [address] [id number] MR#: [id number] Acc #: [id number] NAME: YINKA BRADY : 1950 SEX: F STUDY DATE/TIME: 02/10/2017 18:46 UNIT: [facility] ROOM: STUDY DESCRIPTION: CR Chest Single View Portable Attending Physician: Tarik Lovelace M.D. Ordering Physician: Rajat Garcia M.D. Primary Care Physician: Parris Napier M.D. MEDICAL IMAGING REPORT This report is preliminary unless electronic signature is present EXAM Portable chest HISTORY Cough and congestion for 8 days. FINDINGS Persistent patchy left perihilar and right inferior perihilar infiltrates and dense consolidation or atelectasis in the left base, unchanged compared to 02/04/2017. Persistent small bilateral pleural effusions. Stable mild cardiac enlargement. Dictated by... Eduardo Fried M.D. THIS IS AN ELECTRONICALLY VERIFIED REPORT Eduardo Fried M.D. at 02/10/2017 10:25 PM CARRINGTON/karolina TD: 02/10/2017 21:45 JOB #: [id number] MEDICAL IMAGING REPORT Page 1 of 1 COPY
--- NOTE | ~2017-02-10 | XA203 ---
[facility] A Service of [facility] RADIOLOGY TEXT RESULTS PATIENT: YINKA BRADY LOCATION: [facility] 331-01 : [birth year] UNIT #: [id number] AGE: [address]: Stacy Mohamud MD SEX: F ORDER DR: [id number] [address] [address] [id number] I MR#: [id number] Acc #: [id number] NAME: YINKA BRADY : 1950 SEX: F STUDY DATE/TIME: 02/15/2017 12:52 UNIT: A U ROOM: [facility] STUDY DESCRIPTION: XA Thoracentesis Attending Physician: Stacy Mohamud M.D. Ordering Physician: Ole Salgado M.D. Primary Care Physician: Parris Napier M.D. MEDICAL IMAGING REPORT This report is preliminary unless electronic signature is present EXAM Ultrasound-guided right-sided thoracentesis INDICATIONS Right pleural effusion. The risks, benefits, and alternatives of the procedure were discussed with the patient and informed consent was obtained. In the procedure room, a time out was performed confirming correct patient and procedure. All elements of maximum sterile-barrier technique utilized according to guidelines appropriate for the procedure. TECHNIQUE/FINDINGS Ultrasound of the right posterior thorax was performed demonstrating a large right pleural effusion. Overlying skin was prepped and draped in the usual sterile fashion. 1% lidocaine utilized to anesthetize the skin and underlying subcutaneous tissues. Next under ultrasound guidance, a 5-[place]ese Yueh catheter was inserted into the pleural space on the right and 625 mL of clear yellow fluid was removed. Needle was removed and a sterile dressing was applied. No immediate complications. IMPRESSION Technically successful ultrasound-guided right thoracentesis. Dictated by... Josué Levy M.D. THIS IS AN ELECTRONICALLY VERIFIED REPORT Josué Levy M.D. at 02/16/2017 9:50 AM ARS/pcl [facility] A Service [facility] RADIOLOGY TEXT RESULTS PATIENT: YINKA BRADY LOCATION: [facility] 331-01 : [birth year] UNIT #: [id number] AGE: [address]: Stacy Mohamud MD SEX: F ORDER DR: TD: 02/15/2017 21:33 JOB #: [id number] MEDICAL IMAGING REPORT Page 1 of 1 COPY
--- NOTE | ~2017-02-10 | HP ---
Unit #: [id number] #: [id number] Patient: YINKA BRADY [id number] [address] [address] [id number] I MR#: [id number] NAME: YINKA BRADY ROOM: [facility] Age: 66 Sex: F Admission Date: 02/10/2017 : 1950 Attending Physician: Ginna Ramirez M.D. Primary Care Physician: Parris Napier M.D. HISTORY AND PHYSICAL REASON FOR ADMISSION Acute hypoxic respiratory failure. HISTORY OF PRESENT ILLNESS The patient is a very pleasant 66-year-old female who was recently discharged from our hospital on February 08, 2017, secondary to similar circumstance. Went home, received her DuoNeb aerosol solution the following day. However, she states she had progressive dyspnea despite taking her routine medications as prescribed. Of note, her home medications were reviewed and it appears she was taking her Bumex as well as Lasix as detailed through Dr. Saldana and associates from a previous admission. Unfortunately, the patient progressively got worse while she was at home. She does reside at home with her sisters who elected to bring the patient back to the ER for further evaluation. While she was here, her initial chest x-ray performed at the emergency room showed persistent patchy left perihilar, right perihilar infiltrates as well as a small bilateral pleural effusion. Her ABG showed pH of 7.395, pCO2 of 33, pO2 of 85. D-dimer was elevated at 657. BNP was greater than 4900. Thus, she is being admitted for overt heart failure exacerbation as well as acute hypoxic respiratory failure. PAST MEDICAL HISTORY 1. Recent hospital admission secondary to similar circumstance with a new diagnosis of systolic heart failure. Estimated ejection fraction 25% to 30% diastolic dysfunction. 2. Valvular heart disease. 3. Prior history of ESBL urinary tract infections. 4. Recent C. difficile colitis with prior hospital admission. Recheck negative. 5. Failure to thrive. 6. Chronic kidney disease. Baseline creatinine approximately 2.0. 7. Anemia, likely of chronic disease. Baseline hemoglobin between 9 to 10. 8. Remote history of polysubstance abuse. 9. Prior history of alcohol abuse. 10. Hypertension. 11. Hyperlipidemia. 12. Major depressive disorder. 13. Prior history of noncompliance. PAST SURGICAL HISTORY 1. Wrist surgery. 2. Right shoulder surgery. Unit #: [id number] #: [id number] Patient: YINKA BRADY 3. Upper GI endoscopy. 4. Recent cardiac catheterization approximately seven days ago. ALLERGIES No known drug allergies. HOME MEDICATIONS 1. DuoNeb aerosol solution. 2. Bumex 2 mg p.o. daily. 3. Potassium. 4. Hydralazine. 5. Coreg. 6. Folic acid. 7. Remeron. 8. Ultram. 9. Lexapro. 10. BuSpar. 11. Pepcid. 12. Florastor. 13. Multivitamins. 14. Synthroid. 15. Sodium bicarbonate. 16. Phenergan. 17. Lasix. 18. Ferrous gluconate. REVIEW OF SYSTEMS Please see HPI. Twelve point otherwise negative except for those positives noted in the HPI. PHYSICAL EXAMINATION VITAL SIGNS: Temperature 97.8, pulse 96, respiratory rate 24, blood pressure 146/94. GENERAL APPEARANCE: The patient is a frail 66-year-old female, currently on BiPAP. HEAD EXAM: Atraumatic. EAR EXAM: Tympanic membranes do not reveal any erythema or injection. NECK EXAM: Accessory muscle use noted. No JVD, no carotid bruit. CVS: S1, S2. No murmur heard. RESPIRATORY EXAM: Diminished auscultation bilaterally. Poor air exchange noted. Coarse breath sounds. GI/ABDOMEN: Nontender, nondistended. EXTREMITIES: Lower extremity exam - emaciated lower extremities noted. No calf tenderness, no edema. NEUROLOGICAL EXAM: The patient is A and O x3. No evidence of any focal nerve deficits. ER COURSE The patient received aspirin, started on nitroglycerin drip, received (1) , Bumex 1 mg IV x1, has been placed on BiPAP 08/28 at 40%. DIAGNOSTIC STUDIES LABORATORY: Laboratory studies on admission showed the aforementioned BNP elevated. D-dimer elevated at 657. Please note - patient's recent hospital admission, patient underwent V/Q scan which showed low probability for pulmonary embolism. Hemoglobin noted to be 9.5, INR 1.2, lactic acid 1.5. Aforementioned arterial blood gas. Unit #: [id number] #: [id number] Patient: YINKA BRADY Urine drug screen positive for opiates to which patient received prior hospital admission. INITIAL ADMISSION DIAGNOSES 1. Acute hypoxic/hypercapnic respiratory failure. 2. Heart failure exacerbation. 3. Acute on chronic systolic heart failure. 4. Acute on chronic diastolic heart failure. 5. Failure to thrive. 6. Alcohol abuse. 7. Chronic kidney disease. 8. Anemia, baseline hemoglobin approximately 9.0. 9. Chronic obstructive pulmonary disease. 10. Major depressive disorder. 11. History of hypertension. PLAN Admission to ICU. 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 Consultation to Dr. Saldana, cardiology. NPO status while on BiPAP. Resume home medications, Bumex 1 mg IV q.12, until evaluation by cardiology. Watch creatinine in lieu of prior history of chronic kidney disease. Consultation will also be placed to nephrology services for evaluation. Further hospital course pending patient's response to IV diuresis, BiPAP support. Overall, patient is well aware of her prognosis and her condition as is which is currently guarded. Patient is adamant she wishes to be DNR and those wishes have been affirmed with patient's family present at bedside. Further hospital course to follow. Prognosis guarded at this point. Dictated by Sandro Crane/evangelista TD: 02/11/2017 05:34 JOB #: [id number] HISTORY AND PHYSICAL Page 1 of 1 X Ginna Ramirez MD X HISTORY AND PHYSICAL
--- NOTE | ~2017-02-10 | DS ---
Unit #: [id number] #: [id number] Patient: SOFIA PALMA [id number] [place] [address] [id number] I MR#: [id number] NAME: SOFIA PALMA ROOM: 331 Age: 66 Sex: F Admission Date: 02/10/2017 : 1950 Discharge Date: 02/21/2017 Attending Physician: Stacy Mohamud M.D. Primary Care Physician: Parris Napier M.D. DISCHARGE SUMMARY FINAL DIAGNOSES 1. Acute renal failure. 2. History of chronic kidney disease stage 4. 3. Acute respiratory failure secondary to acute on chronic congestive heart failure. 4. Hyperkalemia secondary to renal failure which has improved. 5. History of valvular heart disease. 6. History of recent Clostridium difficile colitis. 7. Chronic anemia. 8. History of polysubstance abuse. 9. Past history of alcohol abuse. 10. Hypertension. 11. Hyperlipidemia. 12. Depressive disorder. 13. Chronic obstructive pulmonary disease. DISCHARGE MEDICATIONS 1. Sodium bicarb 650 mg t.i.d. 2. Tylenol 650 q.6 p.r.n. 3. Lexapro 10 mg daily. 4. Remeron 7.5 mg at bedtime. 5. BuSpar 15 mg twice daily. 6. Bumex 2 mg daily. 7. Ferrous gluconate 324 mg daily. 8. Famotidine 20 mg daily. 9. Multivitamin daily. 10. Tramadol on p.r.n. basis. 11. Synthroid 25 mcg daily. 12. Folic acid 1 mg daily. 13. Imdur-ER 30 mg daily. 14. DuoNeb at home q.i.d. Please note, potassium has been discontinued. CONSULTATIONS DURING HOSPITALIZATION 1. Dr. No from renal services. 2. Dr. Ole Salgado from pulmonary services. 3. Dr. Kip Oliver from psychiatry services. HOSPITAL COURSE Ms. Sofia Palma is a 66-year-old female who was admitted by Dr. Ginna Ramirez and later on transferred to our service. Patient was diagnosed with acute respiratory failure secondary to pulmonary edema. Patient has a history of congestive heart failure. Systolic ejection fraction is 25%, Unit #: [id number] #: [id number] Patient: SOFIA PALMA although the new echocardiogram which was done recently shows an ejection fraction of 50%. Patient also has diastolic congestive heart failure. Patient was given diuretics, and she is doing much better at this time. During the hospitalization, she had acute on chronic kidney disease and was treated by Dr. No. Patient will make an appointment as an outpatient. She is doing much better at this time and will be discharged home in stable condition. PHYSICAL EXAMINATION ON DISCHARGE VITAL SIGNS: Blood pressure 107/74, respiratory rate 16, pulse 80, temperature 98.9, and oxygen saturation is 99%. HEENT: Head is normocephalic. CHEST: Fair air entry, decreased at the bases. CARDIOVASCULAR: S1 and S2 positive. Regular. EXTREMITIES: Negative edema. DIAGNOSTIC STUDIES LABORATORY ON DISCHARGE: Sodium 133, potassium 5.1, chloride 99, BUN 37, creatinine 2.3, and albumin 2.8. CBC shows WBC 7.9, hemoglobin 10, hemoglobin 30.6, and platelet count of 424,000. DISCHARGE INSTRUCTIONS 1. Patient is being discharged home in stable condition. 2. Follow up with primary care provider in one week. 3. Follow up with renal clinic as scheduled. 4. BMP in one week. 5. Low-potassium diet. 1. Dictated by... Sandro oMnroe TD: 02/24/2017 20:08 JOB #: [id number] DISCHARGE SUMMARY Page 1 of 1 X Stacy Mohamud MD X DISCHARGE SUMMARY
--- NOTE | ~2017-02-10 | CR71 ---
[facility] A Service of [facility] RADIOLOGY TEXT RESULTS PATIENT: YINKA BRADY LOCATION: [facility] 331 : 49 UNIT #: [id number] AGE: [address]: Stacy Mohamud MD SEX: F ORDER DR: [id number] [facility] [address] [place], [place] [address] [id number] I MR#: [id number] Acc #: [id number] NAME: YINKA BRADY : 1950 SEX: F STUDY DATE/TIME: [facility] STUDY DESCRIPTION: CR Chest Single View Attending Physician: Stacy Mohamud M.D. Ordering Physician: Darwin Adams M.D. Primary Care Physician: Parris Napier M.D. MEDICAL IMAGING REPORT This report is preliminary unless electronic signature is present EXAM Chest portable 02/14/2017 1037 hours HISTORY Patient has shortness of air. Postop left thoracentesis today. Evaluate for pneumothorax. COMPARISON Chest film and chest CT 02/12/2017 FINDINGS Portable upright chest demonstrates heart size at the upper limits of normal. The left lung is well expanded and clear. No residual pleural fluid is seen. There is no pneumothorax. There is a small to moderate right pleural effusion unchanged. IMPRESSION 1. Decreased left pleural effusion with no detectable residual fluid. The left lung is clear and there is no pneumothorax. 2. Stable right basilar density likely moderate effusion with atelectasis. Dictated by... Neeru Chen M.D. THIS IS AN ELECTRONICALLY VERIFIED REPORT Neeru Chen M.D. at 02/14/2017 2:35 PM SMM/to TD: 02/14/2017 11:50 JOB #: [id number] MEDICAL IMAGING REPORT [facility] A Service of [facility] RADIOLOGY TEXT RESULTS PATIENT: YINKA BRADY LOCATION: [facility] 331- : [birth year] UNIT #: [id number] AGE: [address]: Stacy Mohamud MD SEX: F ORDER DR: Page 1 of 1 COPY
--- NOTE | ~2017-02-10 | CO ---
Unit #: [id number] #: [id number] Patient: YINKA BRADY [id number] [address] [id number] I MR#: [id number] NAME: YINKA BRADY ROOM: [facility] Age: 66 Sex: F Admission Date: 02/10/2017 : 1950 Attending Physician: Aylin Jeffries M.D. Primary Care Physician: Parris Napier M.D. CONSULTATION REPORT REASON FOR CONSULTATION Renal failure. HISTORY OF PRESENT ILLNESS The patient is a 66-year-old female well known to me from the recent admission. She was admitted to the hospital with increasing shortness of breath. As per patient, she was discharged from the hospital three days back. She went home. She started having shortness of breath that progressively worsened. When she came to the hospital, she was extremely hypoxic and she was put on the BiPAP and later IV diuretics were given resulting in some increased urine output improving the patient's respiratory condition. At this time, the patient is feeling better than before, respiratory condition is better, oxygen level is much better. No significant edema of the lower extremities. Orthopnea is still there. The patient does have some bilateral infiltrates and pleural effusion. BNP level was greater than 4000. Repeat BNP level will be done tomorrow morning. Urine output on the Bumex is only about 300 mL overnight. PAST MEDICAL HISTORY Significant for: 1. Congestive heart failure with an ejection fraction of 25% to 30%. 2. Valvular heart disease. 3. History of UTI with ESBL. 4. History of C difficile colitis. 5. History of chronic kidney disease, stage 4. Baseline creatinine is around 2. 6. History of substance abuse in the past. 7. Depression. PAST SURGICAL HISTORY Significant for: 1. Wrist surgery. 2. Shoulder surgery. 3. Endoscopies. 4. Heart catheterization. HOME MEDICATIONS Reviewed and they include: 1. Sodium bicarbonate p.o. 2. Phenergan. 3. Lasix. 4. BuSpar. 5. Coreg. 6. Hydralazine. Unit #: [id number] #: [id number] Patient: YINKA BRADY 7. Potassium. 8. Bumex 2 mg daily. REVIEW OF SYSTEMS Already explained in history of present illness. PHYSICAL EXAMINATION VITAL SIGNS: Last blood pressure is 110/70, pulse is around 90, temperature 98, respiratory rate 20. GENERAL: Patient is an elderly, thin female, not in acute distress. HEENT: Pupils are reactive to light. Extraocular movements are intact. NECK: Supple. LUNGS: Bilateral air entry, with rhonchi, minimal crackles at the bases with some decreased air entry at the bases as well. HEART: Regular rate and rhythm. No murmur, no gallop. ABDOMEN: Soft, nontender. Bowel sounds are positive. No guarding, no rigidity. EXTREMITIES: No clubbing, cyanosis or edema. Peripheral pulses are palpable. NEUROLOGIC: Grossly nonfocal. DIAGNOSTIC STUDIES LABORATORY: Creatinine is 2.3, it was 2.2 yesterday. Bicarb is 22, sodium 136, potassium 3.9. White cell count is 2.6, hemoglobin 8.3. ASSESSMENT AND PLAN 1. Acute congestive heart failure. 2. Chronic kidney disease, stage 4. 3. Severe anemia, may be related to chronic kidney disease. 4. Chronic obstructive pulmonary disease. 5. Depression. 6. Hypertension. DISCUSSION 1. At this time, because of some increasing creatinine with congestive heart failure, I think we will continue loop diuretics. 2. Keep patient net negative at least 1-2 more days. 3. I am increasing Bumex to 2 mg IV q.8 h. and follow up with her urine output closely. 4. Fluid restriction will be applied. 5. Urine studies will be done. 6. Follow up with sodium and creatinine. 7. Will follow up with repeat electrolytes closely and will try to improve patient's respiratory condition at this time. Thank you for letting me participate in taking care of this patient. Dictated by... Sandro Lawrence TD: 02/11/2017 22:02 Unit #: [id number] #: [id number] Patient: YINKA BRADY JOB #: [id number] CONSULTATION REPORT Page 1 of 1 X Douglas No MD X CONSULTATION REPORT
--- NOTE | ~2017-02-10 | CR72 ---
[facility] A Service of [facility] RADIOLOGY TEXT RESULTS PATIENT: YINKA BRADY LOCATION: [place] [address]-03 : [birth year] UNIT #: [id number] AGE: [address]: Aylin Jeffries MD SEX: F ORDER DR: [id number] [facility] [address] [facility]. [place], [place] [address] [id number] I MR#: [id number] Acc #: [id number] NAME: YINKA BRADY : 1950 SEX: F STUDY DATE/TIME: 02/12/2017 3:55 UNIT: [facility] ROOM: [facility] STUDY DESCRIPTION: CR Chest Single View Portable Attending Physician: Aylin Jeffries M.D. Ordering Physician: Ole Salgado M.D. Primary Care Physician: Parris Napier M.D. MEDICAL IMAGING REPORT This report is preliminary unless electronic signature is present EXAM Single view chest INDICATIONS Respiratory failure. Single portable AP view of the chest compared to 02/11/2017. Heart and mediastinal contours are unchanged. There is mild interstitial edema in both lungs. There are bilateral pleural effusions. No pneumothorax. IMPRESSION No interval change Dictated by... Lele Waterman M.D. THIS IS AN ELECTRONICALLY VERIFIED REPORT Lele Waterman M.D. at 02/12/2017 9:07 PM JYOTI/madeleine TD: 02/12/2017 07:53 JOB #: [id number] MEDICAL IMAGING REPORT Page 1 of 1 COPY
--- NOTE | ~2017-02-10 | XA203 ---
[facility] A Service of [facility] RADIOLOGY TEXT RESULTS PATIENT: YINKA BRADY LOCATION: [facility] 331-01 : [birth year] UNIT #: [id number] AGE: [address]: Stacy Mohamud MD SEX: F ORDER DR: [id number] [place] [facility]. [place], [place] [address] [id number] I MR#: [id number] Acc #: [id number] NAME: YINKA BRADY : 1950 SEX: F STUDY DATE/TIME: 02/14/2017 10:12 UNIT: C3A U ROOM: [facility] STUDY DESCRIPTION: XA Thoracentesis Attending Physician: Stacy Mohamud M.D. Ordering Physician: Ole Salgado M.D. Primary Care Physician: Parris Napier M.D. MEDICAL IMAGING REPORT This report is preliminary unless electronic signature is present EXAM Left thoracentesis. HISTORY Bilateral pleural effusions presumed to diagnosis of heart failure. TECHNIQUE The procedure, attendant risks, and options were discussed at length with the patient. She understands and wishes to proceed. Ultrasound examination was performed showing moderate to large bilateral pleural effusions. Both of the effusions were marked on the skin. On the left, the skin was cleansed with Chlorhexidine solution and draped and anesthetized with 1% Xylocaine. A 5 [place]an catheter was inserted, and 700 mL of fluid was aspirated. Permanent ultrasound image was recorded. The needle was removed. Hemostasis was achieved. Follow-up chest radiograph shows reexpansion of the left lung with no pneumothorax. Fluid was sent for appropriate laboratory analysis. CONCLUSION Technically successful left-sided thoracentesis with removal of 700 mL of fluid. Dictated by... Fatimah Arias M.D. THIS IS AN ELECTRONICALLY VERIFIED REPORT Fatimah Arias M.D. at 02/14/2017 1:16 PM AFF/js [facility] A Service of [facility] RADIOLOGY TEXT RESULTS PATIENT: YINKA BRADY LOCATION: A 331-01 : [birth year] UNIT #: [id number] AGE: [address]: Stacy Mohamud MD SEX: F ORDER DR: TD: 02/14/2017 12:54 JOB #: [id number] MEDICAL IMAGING REPORT Page 1 of 1 COPY
--- NOTE | ~2017-02-10 | CO ---
Unit #: [id number] #: [id number] Patient: SOFIA PALMA [id number] [address] [address] [id number] I MR#: [id number] NAME: SOFIA PALMA ROOM: 331 Age: 66 Sex: F Admission Date: 02/10/2017 : 1950 Attending Physician: Stacy Mohamud M.D. Primary Care Physician: Parris Napier M.D. Consultation Date: 02/19/2017 CONSULTATION REPORT REASON FOR CONSULTATION Followup. DISCUSSION Ms. Sofia Palma is a 66-year-old white female seen in room 331, bed 1 on 02/19/17. Patient is pleasant, cooperative during interview. Dressed casually in hospital attire lying comfortably in bed. Patient reported that she is looking forward to discharge. Patient's family member was in the same room. Patient reported that she is able to sleep well, decrease in anxiety, depression. Denied any suicidal or homicidal ideation. Reports melatonin, Lexapro and BuSpar are working. Patient's vital signs are stable - 98.2, 78, 20, 105/72, oxygen saturation 99%. REVIEW OF SYSTEMS A complete review of systems is unremarkable. MENTAL STATUS EXAMINATION Vital signs - Please see above. General appearance - Patient is thinly built, dressed casually in hospital attire. Attention span, concentration - Fair. Speech - Regular rate, coherent. Oriented to place and person. Mood and affect - Sad, dysphoric. Thought process - Coherent. Thought content - Patient denied any thoughts of harming self or others or any psychotic symptoms. Recent and remote memory - Fair. Language - Intact. Fund of knowledge - Fair. Insight and judgment - Fair to slightly impaired. DIAGNOSIS PSYCHIATRIC: Major depressive disorder, recurrent, severe, F33.2; anxiety disorder, NOS, F40.01. ASSESSMENT AND PLAN 1. Supportive psychotherapy and psychoeducation provided to the patient. 2. Educated about benefits and side effects of medication and course and prognosis of illness. 3. Advised to continue with current medication. If needed, consider adjustment of medications. 4. Patient was given Crisis Line number ([phone]) and [facility]. Please feel free to call with any questions, telephone number . Unit #: [id number] #: [id number] Patient: SOFIA PALMA Dictated by... Sandro Smith/merline TD: 02/20/2017 08:54 JOB #: [id number] CONSULTATION REPORT Page 1 of 1 X Kip Oliver MD X CONSULTATION REPORT
--- NOTE | ~2017-02-10 | EKG ---
PATIENT: YINKA BRADY UNIT #: [id number] Ventricular Rate: 97 BPM Atrial Rate: 97 BPM P-R Interval: 186 ms QRS Duration: 78 ms Q-T Interval: 404 ms QTC Calculation(Bezet): 513 ms P [place]: 68 degrees Calculated R [place]: 42 degrees Calculated T [place]: 108 degrees Diagnosis Line: Normal sinus rhythm Diagnosis Line: Possible Left atrial enlargement Diagnosis Line: Low voltage QRS Diagnosis Line: Cannot rule out Anterior infarct , age Diagnosis Line: undetermined Diagnosis Line: T wave abnormality, consider lateral ischemia Diagnosis Line: Prolonged QT Diagnosis Line: Abnormal ECG Diagnosis Line: When compared with ECG of 07-FEB-2017 05:40, Diagnosis Line: No significant change was found Diagnosis Line: Confirmed by MELONIE RAMAN MD ([id number]) on Diagnosis Line: 02/13/2017 8:43:30 AM INTERPRETING MD: DANISHA LOPEZ
--- NOTE | ~2017-02-10 | CO ---
Unit #: [id number] #: [id number] Patient: SOFIA PALMA [id number] [facility] [address] [address] [id number] I MR#: [id number] NAME: SOFIA PALMA ROOM: 331 Age: 66 Sex: F Admission Date: 02/10/2017 : 1950 Attending Physician: Stacy Mohamud M.D. Primary Care Physician: Parris Napier M.D. Consultation Date: 02/21/2017 CONSULTATION REPORT DISCUSSION Ms. Sofia Palma is a 66-year-old female seen on 02/21/17 in room 331 bed-1 at [facility]. Patient reported that she is in pain in her right shoulder, possibly due to sleeping in the wrong way. Patient reports that she is feeling somewhat anxious/nervous but denied any suicidal or homicidal ideation. Denied any psychotic symptom. Patient reports she is looking forward to go home but her potassium was up. Vital signs - 98.9, 80, 16, 107/74. Oxygen saturation 99%. Patient thin built, dressed casually in hospital attire, lying comfortably in the propped up position. Patient's sister was in the room and able to answer questions appropriately. REVIEW OF SYSTEMS Complete review of systems unremarkable. MENTAL STATUS EXAMINATION GENERAL APPEARANCE: Patient dressed casually in hospital attire, lying in the propped up position. Attention span and concentration fair. Speech - regular rate, coherent. Oriented in time, place and person. Mood and affect sad, dysphoric, anxious. Thought process coherent. Thought content - patient denied any thoughts of harming self or others. Denied any psychotic symptoms. Recent and remote memory fair. Language - intact. Fund of knowledge fair. Insight and judgment fair to slightly impaired. DIAGNOSES 1. Major depressive disorder, recurrent, severe - F33.0. 2. Anxiety disorder, not otherwise specified - F40.01 ASSESSMENT/PLAN 1. Supportive psychotherapy and psychoeducation provided to patient. 2. Educated about benefits and side effects of medication and course and prognosis of illness. 3. Advised to continue with current medication. If needed, consider further additional medication. Please feel free to call if any questions. Telephone number [phone]. Dictated by... Kip Oliver M.D. Unit #: [id number] #: [id number] Patient: SOFIA PALMA DUONG/evangelista TD: 02/22/2017 08:55 JOB #: [id number] CONSULTATION REPORT Page 1 of 1 X Kip Oliver MD CONSULTATION REPORT
--- NOTE | ~2017-02-10 | CR72 ---
[facility] A Service of [facility] & [facility] RADIOLOGY TEXT RESULTS PATIENT: YINKA BRADY LOCATION: [place] [address] : [birth year] UNIT #: [id number] AGE: [address]: Aylin Jeffries MD SEX: F ORDER DR: [id number] [facility] [address] [place], [place] [address] [id number] I MR#: [id number] Acc #: [id number] NAME: YINKA BRADY : 1950 SEX: F STUDY DATE/TIME: 02/11/2017 6:23 UNIT: [facility] ROOM: [facility] STUDY DESCRIPTION: CR Chest Single View Portable Attending Physician: Ginna Ramirez M.D. Ordering Physician: Ginna Ramirez M.D. Primary Care Physician: Parris Napier M.D. MEDICAL IMAGING REPORT This report is preliminary unless electronic signature is present EXAM Portable chest history supplied is shortness of breath for 9 days. Bilateral effusions, weakness, FINDINGS AP portable chest obtained. Cardiac size is stable. Lungs show continued evidence of pulmonary edema. There are bibasilar infiltrates and bilateral pleural effusions. CONCLUSION Slight worsening pulmonary edema. Dictated by... Darwin Adams M.D. THIS IS AN ELECTRONICALLY VERIFIED REPORT Darwin Adams M.D. at 02/12/2017 5:06 PM Kike TD: 02/11/2017 07:22 JOB #: [id number] MEDICAL IMAGING REPORT Page 1 of 1 COPY
--- NOTE | ~2017-02-10 | CO ---
Unit #: [id number] #: [id number] Patient: YINKA PALMA [id number] [address] [place], [place] [address] [id number] I MR#: [id number] NAME: YINKA PALMA ROOM: [facility] Age: 66 Sex: F Admission Date: 02/10/2017 : 1950 Attending Physician: Aylin Jeffries M.D. Primary Care Physician: Parris Napier M.D. Consultation Date: 02/11/2017 CONSULTATION REPORT REASON FOR CONSULTATION Respiratory failure. HISTORY OF PRESENT ILLNESS A 66-year-old female who has severe left ventricular dysfunction but recent cardiac catheterization apparently revealed normal coronary arteries, presents with shortness of breath. She was just discharged from this institution a few days ago. According to the hospital record and the family and patient's history, she was treated for congestive heart failure, possible pneumonia and discharged. She had increasing shortness of breath. Nebulized bronchodilators were tried without benefit. In the emergency room, she was very short of air requiring mask ventilation. She received diuretics, nitroglycerin, and was placed in the emergency room. She remained on BiPAP overnight. It was just removed for history taking. She says she feels dramatically better. She denies sputum production, fever, hemoptysis, chest congestion. She did have some wheezing last night but that has resolved. PAST MEDICAL HISTORY 1. She denies any history of COPD, asthma, or emphysema. 2. She has a history of cardiomyopathy but apparently that is relatively new. She apparently had had some diastolic heart failure but recently developed a systolic dysfunction. I was told cardiac catheterization was negative for coronary artery disease but I do not see a dictated report. 3. Alcohol abuse, stopped drinking two months ago. 4. Remote polysubstance abuse. 5. Fairly recent Clostridium difficile colitis with repeat stool check which was negative. 6. Chronic kidney disease. 7. Hypertension. 8. Hyperlipidemia. 9. Depression. MEDICATIONS At home, she just got started on nebulized bronchodilators. She was on no inhaled medications prior to that. Other medications: 1. Folic acid. 2. Mirtazapine. 3. Ultram. 4. Lexapro. 5. BuSpar. 6. Pepcid. 7. Florastor. Unit #: [id number] #: [id number] Patient: YINKA PALMA 8. Multivitamins. 9. Tramadol. 10. Synthroid. 11. Sodium bicarbonate. 12. Phenergan. 13. Lasix. 14. Iron. 15. DuoNeb. 16. Bumex. 17. Potassium. 18. Hydralazine. 19. Coreg. 20. She just finished Flagyl. ALLERGIES No known medical allergies. SOCIAL HISTORY Quit drinking two months ago. She does not smoke and is a never smoker but was around secondhand smoke. FAMILY HISTORY No familial lung disease. REVIEW OF SYSTEMS As above. She has had significant weight loss. No fever. No chest pain, palpitations, abdominal pain, melena, hematochezia, hematemesis, hematuria, dysuria, focal weakness, paraesthesias, leg pain swelling. Further review of systems negative. PHYSICAL EXAMINATION GENERAL: Reveals a patient who is thin, currently in no acute distress on nasal cannula oxygen. In fact, room air saturations prior to placement of the nasal cannula oxygen were 93% to 94%. VITAL SIGNS: She is afebrile. Pulse is 80, respiratory rate 16, blood pressure 112/75. Height 5 foot 3 inches, 101 pounds. She has been as low as 89 and 95 pounds in 2016 but has gained and then lost some weight. HEENT: Pupils equal, round, and reactive to light. Sclerae anicteric. Head: Atraumatic. NECK: Supple. No supraclavicular or cervical adenopathy appreciated. CHEST: No wheeze, stridor. Short expiratory phase. She does have some egophony posterior left upper lung sequeira, decreased breath sounds and dullness to percussion at the bilateral bases. No wheeze. CARDIAC: Reveals a regular rate and rhythm. No pathologic murmur, rub, or gallop. ABDOMEN: Soft, nontender. No hepatomegaly or rebound. EXTREMITIES: Reveal no clubbing, cyanosis, or edema. No calf tenderness. SKIN: Warm and dry without rash, diaphoresis. NEUROLOGIC: Grossly intact. No focal muscle or sensory deficits. DIAGNOSTIC STUDIES LABORATORY: Arterial blood gas: A pH 7.43, pCO2 of 34, pO2 of 147. Yesterday, pH 7.39, pCO2 of 33, pO2 of 85. BUN 17, creatinine 2.3. BNP greater than 4900. Procalcitonin on February 02 was 0.23. INR is normal. Cardiac enzymes normal. White blood cell count 9, hemoglobin 8.3, platelet count 341,000. Blood cultures performed and are pending. No recent urinalysis. She has had low colony counts of ESBL E. coli in her urine before. Rhythm strips have been sinus. Unit #: [id number] #: [id number] Patient: YINKA PALMA IMAGING: Chest x-ray with evidence of bilateral pleural effusions, pulmonary edema, and a more focal infiltrate left to mid lung zone. CT scan on February 04 showed a lingular area of what appears to be pneumonia with air bronchograms. This was not present on chest x-rays on January 24, so it does appear to be a new area of infiltrate. Therefore doubt malignancy. IMPRESSION 1. Acute respiratory failure, most likely secondary to pulmonary edema. 2. Congestive heart failure, systolic with left ventricular of 25%, normal coronaries per report. 3. Abnormal chest x-ray/CT scan with left upper lobe/lingula infiltrate. 4. History of Clostridium difficile colitis with improving symptoms. 5. Alcohol abuse, stopping drinking two months ago. 6. Chronic kidney disease. 7. Anemia. 8. History of extended spectrum beta lactamases Escherichia coli. 9. Medical problems listed above. PLAN Noninvasive mask ventilation as needed. Oxygen to maintain adequate saturations. She has improved with treatment for heart failure. Therefore, will watch off antibiotics but I am concerned about this focal infiltrate. I will check a procalcitonin level and observe clinically. I will consider repeat CT scan of the chest without contrast. Will consider thoracentesis if pleural effusions enlarge. Thank you very much for allowing me to participate in the care of Ms. Palma. Dictated by... Ole Salgado M.D. JOHN/yobany TD: 02/11/2017 17:39 JOB #: [id number] CC: Parris Napier M.D. CONSULTATION REPORT Page 1 of 1 X Ole Salgado MD CONSULTATION REPORT
--- NOTE | ~2017-02-10 | A ---
[facility] Nutrition Therapy DATE: 02/11/17 Patient: YINKA BRADY Physician: MELINDA Address: [address] Room/Bed: [address], Zip: [place] [address] Admit Date: 02/10/17 Date of : [birth year] Height: 5 3 Weight: 101 46 NUTRITIONAL ASSESSMENT: REASON: PT SEEN FOR LOW BMI PT IS 66 Y.O. FEMALE ADMITTED FOR ACUTE RESPIRATORY FAILURE, CHF PMH: SEE RD ASSESSMENT ON 01/25/17 AND 02/07/17 Anthropometrics: 5'3", WT: 101# (46 KG), BMI: 17.9, 88%IBW Labs: GLU: 117, CREAT: 2.3, ALB: 3.0, GFR: 21.3 Meds: SYNTHROID (PO), ZOFRAN, NACL I/O & Bowel function: 88/237 Skin Integrity: DRY FLAKY SKIN Estimated Nutrition Needs: INCREASED NUTRIENT NEEDS 2' PT UNDERWEIGHT, CURRENT CONDITION, PMH Assessment: CHART REVIEWED AND EVENTS NOTED. PT WAS RECENTLY ASSESSED BY RD ON ON 02/07/17, PT D/C'D ON 02/08/17 AND WAS RE-ADMITTED 02/10/17 FOR DX. PT SEEN FOR UNDERWEIGHT STATUS. PT HAS HISTORY OF POOR PO INTAKE AND WEIGHT LOSS D/T RECURRENT ILLNESS AND POOR ORAL INTAKE. THIS RD ENCOURAGED SMALL FREQUENT MEALS + SUPPLEMENT INTAKE, PT AGREED TO ENSURE COMPACT BID + MAGIC CUP DAILY. OF NOTE, PT ON 2 GM NA + FLUID RESTRICTION. RD SUGGESTED REGULAR DIET TO LIBERALIZE FOOD CHOICES (RD PROVIDED HIGH KCAL/HIGH PROTEIN WRITTEN FOOD LIST). SEE RECOMMENDATIONS BELOW. 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 Intervention: 1. 2 GM NA DIET 2. ENSURE COMPACT BID 3. MAGIC CUP DAILY 4. RD EDUCATION/WRITTEN Monitoring, Evaluation and Goals: 1. ORAL INTAKE; CONSUME >50% OF MEALS AND SUPPLEMENTS W/NO C/O N/V/D 2. WEIGHTS; PROMOTE GRADUAL WEIGHT GAIN 3. LABS; WNL 4. GI; PROMOTE REGULAR GI FUNCTION [facility] Nutrition Therapy DATE: 02/11/17 Patient: YINKA BRADY Physician: MELINDA Address: [address] Room/Bed: [address], Zip: [place] [address] Admit Date: 02/10/17 Date of : [birth year] Height: 5 3 Weight: 101 46 MONITOR: -PO INTAKE/APPETITE -WEIGHTS -SUPPLEMENT INTAKE Recommendations: 1. RECOMMEND TO CHANGE CURRENT DIET ORDER TO REGULAR/HIGH CALORIE/HIGH PROTEIN DIET + 6 SMALL MEALS D/T PT UNDERWEIGHT 2. PLEASE ORDER MAXIMILIANO ENSURE COMPACT BID W/MEALS + MAXIMILIANO MAGIC CUP DAILY W/LUNCH 3. APPRECIATE FAMILY AND STAFF TO ENCOURAGE ADEQUATE PO INTAKE 4. PLEASE OBTAIN WEIGHTS q 3 DAYS FOR MONITORING PURPOSES RD WILL F/U PER PROTOCOL PT IS MODERATELY COMPROMISED Respectfully, RAKAN HELMS MS, RD, LD [employer] [facility] cc: client file
--- NOTE | ~2017-02-10 | FU ---
[facility] Nutrition Therapy DATE: 02/15/17 Patient: YINKA BRADY Physician: NIA Address: [address] Room/Bed: [address] [place] [address], Zip: [place] [address] Admit Date: 02/10/17 Date of : [birth year] Height: 5 3 Weight: 84 38.2 NUTRITION MONITORING/FOLLOW-UP: Reason: Follow up Anthropometrics: Ht: 63" Adm wt: 46 kg BMI: 17.9, 88% IBW Wt 02/15: 43 kg Labs: Na+ 134 BUN 33 Creat 2.1 GFR 23.8 Meds: Bumetanide, spironolactone, synthroid, zofran I&O's: 770/1200, last BM 02/13 Skin: no changes noted Edema: none noted Estimated Nutrition Needs: Increased d/t low body weight, PMH, current condition Diet: 2 gram Na+/ fluid restriction Assessment: Chart reviewed, events noted. Pt is s/p thoracentesis today. RD previously educated the pt regarding high calorie/ high protein diet. RD spoke with the pt at bedside. Pt reports ~50% intake of solid food, and consumes ~100% of oral nutrition supplements (Magic cup once/day + Ensure Compact BID). Pt seems to understand the importance of adequate nutritional intake and weight gain, and reports significant appetite improvement. RD suggested increasing supplement/ PO intake, and the pt agreed. It does not appear in [employer] that the pt remains on a fluid restriction; however, the pt did mention they are monitoring her fluid intake. Please see recommendations below. Dx: Moderate PCM RT chronic illness, decreased appetite AEB weight loss (10-20% in 6-[address]), prolonged poor oral intake <75% energy needs >1 month, BMI 17.9, 88% IBW- ACTIVE WITH SOME IMPROVEMENT Intervention: 1. Increase supplement intake 2. Add 6 small meals to diet order Monitoring, Evaluation and Goals: 1. Oral intake; consume >50% of meals and supplements- IN PROGRESS 2. Weights; promote gradual weight gain- NOT MET 3. Labs; WNL- NOT MET [facility] Nutrition Therapy DATE: 02/15/17 Patient: YINKA BRADY Physician: NIA Address: [address] Room/Bed: [address] [place] [address], [facility], Zip: [place] [address] Admit Date: 02/10/17 Date of : [birth year] Height: 5 3 Weight: 84 38.2 4. GI; promote regular GI function- IN PROGRESS NEW GOALS: 1. Oral intake; tolerate 50-75% of meals and supplements 2. Weight; promote gradual weight gain 3. Improve labs; Na+, BUN, creat, GFR Recommendations: 1. Continue 2 gram Na+ diet, adding 6 small meals to promote adequate nutritional intake. 2. Continue fluid restriction as ordered per MD. 3. Increase Ensure COMPACT to TID to promote adequate protein intake. Also, continue Magic Cup BID. 4. Appreciate staff and family encouraging adequate PO intake as needed. Status: Pt is at mild nutritional risk. RD will continue to follow. Respectfully, CARLYN JIANG RD, LD Food and Nutritional Services [facility] cc: client file
--- NOTE | ~2017-02-10 | CT57 ---
[facility] A Service of [facility] & [facility] RADIOLOGY TEXT RESULTS PATIENT: YINKA BRADY LOCATION: [place] [address] : [birth year] UNIT #: [id number] AGE: [address]: Stacy Mohamud MD SEX: F ORDER DR: [id number] [facility] [address] [place], [place] [address] [id number] I MR#: [id number] Acc #: [id number] NAME: YINKA BRADY : 1950 SEX: F STUDY DATE/TIME: 02/12/2017 13:10 UNIT: [facility] ROOM: [facility] STUDY DESCRIPTION: CT Chest Wo Cont Attending Physician: Aylin Jeffries M.D. Ordering Physician: Ole Salgado M.D. Primary Care Physician: Parris Napier M.D. MEDICAL IMAGING REPORT This report is preliminary unless electronic signature is present EXAM CT of the chest without contrast. INDICATION Worsening shortness of breath since February 08. TECHNIQUE CT scan of the chest was performed without contrast. Coronal and sagittal reformatted images were obtained. Comparison is made with 02/04/17. This CT exam was performed with one or more of the following radiation dose reduction techniques: automatic exposure control, adjustment of mA and/or kV according to patient size, and iterative reconstruction. FINDINGS There are moderate-sized bilateral pleural effusions which were not significantly changed. There is complete atelectasis of the left lower lobe. There is stable partial atelectasis of the right lower lobe. There is decreased atelectasis or consolidation in the lingula. There is stable atelectasis or consolidation in the right middle lobe. There is some prominent mediastinal lymph nodes which are nonspecific, and may be reactive. Limited imaging in the upper abdomen actually demonstrates coarse pancreatic calcifications suggestive of chronic pancreatitis. Stable adrenal nodule on the left. The bone windows are unremarkable. IMPRESSION 1. Stable moderate sized bilateral pleural effusions. 2. Complete atelectasis of the left lower lobe. 3. Stable partial atelectasis of the right lower lobe. 4. Improving consolidation/atelectasis in the lingula. 5. Exam is otherwise unchanged. Dictated by... [facility] A Service of [facility] & [facility] RADIOLOGY TEXT RESULTS PATIENT: YINKA BRADY LOCATION: [address] : [birth year] UNIT #: [id number] AGE: [address]: Stacy Mohamud MD SEX: F ORDER DR: Josué Levy M.D. THIS IS AN ELECTRONICALLY VERIFIED REPORT Josué Levy M.D. at 02/13/2017 7:45 AM MADDIE/louis TD: 02/12/2017 21:39 JOB #: [id number] MEDICAL IMAGING REPORT Page 1 of 1 COPY
--- NOTE | ~2017-02-10 | CR72 ---
[facility] A Service of [facility] & [facility] RADIOLOGY TEXT RESULTS PATIENT: YINKA BRADY LOCATION: [facility] 331-01 : [birth year] UNIT #: [id number] AGE: [address]: Stacy Mohamud MD SEX: F ORDER DR: [id number] [facility] [address]. [place], [place] [address] [id number] I MR#: [id number] Acc #: [id number] NAME: YINKA BRADY : 1950 SEX: F STUDY DATE/TIME: 02/15/2017 13:31 UNIT: [address] ROOM: [facility] STUDY DESCRIPTION: CR Chest Single View Portable Attending Physician: Stacy Mohamud M.D. Primary Care Physician: Parris Napier M.D. MEDICAL IMAGING REPORT This report is preliminary unless electronic signature is present EXAM Portable chest HISTORY Post thoracentesis today. Pleural effusion. FINDINGS There is no pneumothorax following right thoracentesis earlier today. Right pleural effusion has been evacuated and there is improved aeration of the right base with only minimal remaining right basilar atelectasis. There is a small left pleural effusion and mild left basilar infiltrate or atelectasis, similar to the prior study. Mild cardiac enlargement is accentuated by low lung volumes. Remainder of the lungs are clear. Dictated by... Eduardo Fried M.D. THIS IS AN ELECTRONICALLY VERIFIED REPORT Eduardo Fried M.D. at 02/15/2017 10:38 PM Meghann TD: 02/15/2017 16:12 JOB #: [id number] MEDICAL IMAGING REPORT Page 1 of 1 COPY
--- NOTE | ~2017-02-10 | CO ---
Unit #: [id number] #: [id number] Patient: SOFIA PALMA [id number] [facility] [address] [place] [address] [id number] I MR#: [id number] NAME: SOFIA PALMA ROOM: 331 Age: 66 Sex: F Admission Date: 02/10/2017 : 1950 Attending Physician: Stacy Mohamud M.D. Primary Care Physician: Parris Napier M.D. Consultation Date: 02/18/2017 CONSULTATION REPORT DISCUSSION Ms. Sofia Palma is a 56-year-old white female, seen in room 331, bed 1, on 02/18/2017. The patient was seen at [facility]. The patient reported that she was able to sleep good, still feeling anxious, nervous, but does not wanted to have any medication. Currently, on BuSpar, Lexapro, and melatonin. The patient denied any suicidal or homicidal ideation. Denied any psychotic symptom. Pleasant cooperative during interview. Able to answer questions appropriately. The patient's vital signs; temperature 98.3, pulse 77, respiratory rate 18, and blood pressure 104/71, oxygen saturation 98%. MENTAL STATUS EXAMINATION General appearance; the patient dressed casually in hospital attire, sitting comfortably in chair, made good eye contact, cooperative. Attention span and concentration, fair. Speech is regular rate and coherent. Oriented in time, place, and person. Mood and affect, sad and dysphoric. Thought process, coherent. Thought content, the patient denied any thoughts of harming self or others or any psychotic symptom. Language, intact. Fund of knowledge, fair. Insight and judgment, fair to slightly impaired. DIAGNOSES Psychiatric; major depressive disorder, recurrent, severe, F33.2. ASSESSMENT/PLAN 1. Supportive psychotherapy and psychoeducation provided to the patient. 2. Educated about benefits and side effects of medication and course and prognosis of illness. 3. Advised to continue with current combination of medication and follow up in the outpatient basis at outpatient treatment program at [facility]. The patient was given crisis line #[phone]. Dictated by... Kip Oliver M.D. DUONG/nci TD: 02/19/2017 13:59 JOB #: [id number] Unit #: [id number] #: [id number] Patient: SOFIA PALMA CONSULTATION REPORT Page 1 of 1 X Kip Oliver MD CONSULTATION REPORT
[~2017-02-10 18:00] MED LIST changes: +ALBUTEROL MININEB NEB; +BUMEX2 MG PO; +BUSPAR15 M2 PO; +COREG PO; +COREG6.25 M1 PO; +DUONEB NEB; +FAMOTIDINE PO; +HYDRALAZINE HCL25 MG PO; +K-DUR20 ME1 PO; +LEXAPRO PO; +MIRTAZAPINE7.5 MG PO; +PATIENT'S PHARMACY; +PHENERGAN25 MG PO; +ULTRAM PO; +VITAMIN B1 PO; +VITAMIN D PO
[2017-02-10 18:57] LABS: BASOPHIL% 0.2 % (0-2.5); EOSINOPHIL# 0.2 X10e3 (0-0.7); EOSINOPHIL% 1.7 % (0.0-7.0); HEMATOCRIT 28.7 % (35.0-45.0); HEMOGLOBIN 9.5 gm/dL (12.0-16.0); LYMPHOCYTE# 2.3 X10e3 (1.0-3.5); MEAN CORPUSCULAR HEMOGLOBIN 30.9 PG (28-34); MEAN CORPUSCULAR HGB CONC 32.9 g/dL (30-36); MEAN PLATELET VOLUME 9.3 FL (6.5-11.5); MONOCYTE# 0.8 X10e3 (0-1.0); MONOCYTE% 8.5 % (3.0-12.0); NEUTROPHIL# 6.5 X10e3 (1.5-7.1); NEUTROPHIL% 66.6 % (40-75); PLATELET COUNT 496 X10e3 (140-420); RED BLOOD COUNT 3.06 X10e (3.90-5.30); RED CELL DISTRIBUTION WIDTH 15.8 % (11.0-15.5); WHITE BLOOD COUNT 9.8 X10e3 (4.0-10.5)
[2017-02-10 18:58] LABS: DIFF IND NO
[2017-02-10 19:12] LABS: INR 1.2
[2017-02-10 19:20] LABS: POC - CKMB 1.6 ng/mL (0.0-7.9); POC - TROPONIN <0.05 ng/mL (<=0.05)
[2017-02-10 19:20] LABS: BILIRUBIN, DIRECT 0.2 mg/dL (0.0-0.2); BILIRUBIN,INDIRECT 0.5 mg/dL (0.0-0.9); BILIRUBIN,TOTAL 0.7 mg/dL (0.2-2.0); BUN/CREATININE RATIO 6.81; CREATININE SERUM 2.2 mg/dL (0.6-1.4); GLOM FILT RATE Estimated 22.5 mL/min (>60); POTASSIUM 3.7 mmol/L (3.5-5.1); PROTEIN TOTAL SERUM 7.4 g/dL (6.0-8.3)
[2017-02-10 21:01] LABS: POC - CKMB 2.8 ng/mL (0.0-7.9); POC - TROPONIN <0.05 ng/mL (<=0.05)
[2017-02-10 21:28] LABS: ARTERIAL BLD GAS O2 SATURATION 95.1 % (90.0-100.0); ARTERIAL BLOOD GAS CARBOXY HB 1.2 %sat (0.0-9.0); ARTERIAL BLOOD GAS HCO3 20.4 mmol/L; ARTERIAL BLOOD GAS MET HB 0.6 %sat (0.0-2.0); ARTERIAL BLOOD GAS PCO2 33.3 mmHg (35.0-45.0); ARTERIAL BLOOD GAS PO2 85.2 mmHg (80.0-100); ARTERIAL BLOOD GAS pH 7.395 (7.350-7.450)
[2017-02-10 21:29] LABS: ARTERIAL BLOOD GAS ALLEN TEST NORMAL; ARTERIAL BLOOD GAS ART SITE RIGHT RADIAL; ARTERIAL BLOOD GAS DELIVERY BIPAP 16/6; ARTERIAL DRAW? YES
[2017-02-10 21:40] LABS: AMPHETAMINE NEG (NEG); BARBITURATES NEG (NEG); BENZODIAZEPINES NEG (NEG); COCAINE NEG (NEG); MARIJUANA NEG (NEG); OPIATES POS (NEG); TRICYCLIC ANTIDEPRESSANTS NEG (NEG); U METHADONE NEG (NEG)
[2017-02-11 04:18] LABS: ARTERIAL BLD GAS O2 SATURATION 98.3 % (90.0-100.0); ARTERIAL BLOOD GAS CARBOXY HB 0.6 %sat (0.0-9.0); ARTERIAL BLOOD GAS HCO3 22.8 mmol/L; ARTERIAL BLOOD GAS MET HB 0.8 %sat (0.0-2.0); ARTERIAL BLOOD GAS PCO2 34.1 mmHg (35.0-45.0); ARTERIAL BLOOD GAS pH 7.432 (7.350-7.450)
[2017-02-11 04:28] LABS: BASOPHIL# 0.1 X10e3 (0-0.3); BASOPHIL% 1.3 % (0-2.5); EOSINOPHIL% 0.4 % (0.0-7.0); HEMATOCRIT 25.2 % (35.0-45.0); HEMOGLOBIN 8.3 gm/dL (12.0-16.0); LYMPHOCYTE# 1.5 X10e3 (1.0-3.5); LYMPHOCYTE% 16.8 % (17.0-45.0); MEAN CELL VOLUME 93.7 FL (83-96); MEAN CORPUSCULAR HEMOGLOBIN 30.9 PG (28-34); MEAN PLATELET VOLUME 9.4 FL (6.5-11.5); MONOCYTE# 0.7 X10e3 (0-1.0); MONOCYTE% 7.4 % (3.0-12.0); NEUTROPHIL# 6.7 X10e3 (1.5-7.1); NEUTROPHIL% 74.1 % (40-75); PLATELET COUNT 341 X10e3 (140-420); RED BLOOD COUNT 2.69 X10e (3.90-5.30); RED CELL DISTRIBUTION WIDTH 15.4 % (11.0-15.5)
[2017-02-11 04:30] LABS: DIFF IND NO
[2017-02-11 04:43] LABS: ARTERIAL BLOOD GAS ALLEN TEST NORMAL; ARTERIAL BLOOD GAS ART SITE RIGHT RADIAL; ARTERIAL DRAW? YES
[2017-02-11 04:45] LABS: BUN/CREATININE RATIO 7.39; CALCIUM SERUM 8.6 mg/dL (8.4-10.2); CREATININE SERUM 2.3 mg/dL (0.6-1.4); GLOM FILT RATE Estimated 21.3 mL/min (>60); POTASSIUM 3.9 mmol/L (3.5-5.1)
[2017-02-11 14:30] LABS: CREATININE,RANDOM URINE 40 mg/dL; SODIUM URINE RANDOM 107 mmol/L
[2017-02-12 04:48] LABS: BASOPHIL# 0.1 X10e3 (0-0.3); BASOPHIL% 1.9 % (0-2.5); EOSINOPHIL# 0.3 X10e3 (0-0.7); EOSINOPHIL% 3.9 % (0.0-7.0); HEMATOCRIT 23.3 % (35.0-45.0); HEMOGLOBIN 7.5 gm/dL (12.0-16.0); LYMPHOCYTE# 1.9 X10e3 (1.0-3.5); LYMPHOCYTE% 25.3 % (17.0-45.0); MEAN CELL VOLUME 93.4 FL (83-96); MEAN CORPUSCULAR HGB CONC 32.2 g/dL (30-36); MEAN PLATELET VOLUME 9.3 FL (6.5-11.5); MONOCYTE# 0.8 X10e3 (0-1.0); MONOCYTE% 11.5 % (3.0-12.0); NEUTROPHIL# 4.2 X10e3 (1.5-7.1); NEUTROPHIL% 57.4 % (40-75); PLATELET COUNT 330 X10e3 (140-420); RED CELL DISTRIBUTION WIDTH 15.6 % (11.0-15.5); WHITE BLOOD COUNT 7.4 X10e3 (4.0-10.5)
[2017-02-12 04:52] LABS: DIFF IND YES
[2017-02-12 05:02] LABS: PLATELET ESTIMATE NORMAL (NORMAL)
[2017-02-12 05:07] LABS: ALBUMIN SERUM 2.5 g/dL (3.5-5.0); BILIRUBIN,TOTAL 0.6 mg/dL (0.2-2.0); BUN/CREATININE RATIO 7.85; CALCIUM SERUM 8.5 mg/dL (8.4-10.2); CREATININE SERUM 2.8 mg/dL (0.6-1.4); GLOM FILT RATE Estimated 16.8 mL/min (>60); MAGNESIUM 1.8 mg/dL (1.6-3.0); PHOSPHOROUS 5.3 mg/dL (2.5-4.6); POTASSIUM 4.2 mmol/L (3.5-5.1); PROTEIN TOTAL SERUM 5.8 g/dL (6.0-8.3)
[2017-02-12 10:04] LABS: URINE SOURCE CLEAN CATCH
[2017-02-12 10:12] LABS: URINE APPEARANCE CLEAR; URINE BILIRUBIN NEG (NEG); URINE BLOOD 2+ (NEG); URINE COLOR YELLOW; URINE GLUCOSE NEG (NEG); URINE KETONE NEG (NEG); URINE LEUKOCYTE ESTERASE 1+ (NEG); URINE NITRATE NEG (NEG); URINE PROTEIN NEG (NEG); URINE SPECIFIC GRAVITY 1.007 (1.003-1.035); URINE UROBILINOGEN 0.2 MG/DL (NEG)
[2017-02-12 10:14] LABS: URBCS1 AUWI 25-50 /[HPF] (0-2); URINE BACTERIA AUWI NEG (NEGATIVE); URINE SQUAMOUS EPITHELIAL CELL NONE SEEN /[HPF]
[2017-02-13 05:26] LABS: CALCIUM SERUM 8.7 mg/dL (8.4-10.2); CREATININE SERUM 2.4 mg/dL (0.6-1.4); GLOM FILT RATE Estimated 20.2 mL/min (>60); POTASSIUM 4.8 mmol/L (3.5-5.1)
[2017-02-13 05:29] LABS: BASOPHIL# 0.1 X10e3 (0-0.3); BASOPHIL% 0.9 % (0-2.5); EOSINOPHIL# 0.3 X10e3 (0-0.7); EOSINOPHIL% 3.7 % (0.0-7.0); HEMOGLOBIN 7.8 gm/dL (12.0-16.0); LYMPHOCYTE# 1.4 X10e3 (1.0-3.5); LYMPHOCYTE% 17.5 % (17.0-45.0); MEAN CELL VOLUME 93.9 FL (83-96); MEAN CORPUSCULAR HEMOGLOBIN 30.3 PG (28-34); MEAN CORPUSCULAR HGB CONC 32.3 g/dL (30-36); MEAN PLATELET VOLUME 9.7 FL (6.5-11.5); MONOCYTE% 11.9 % (3.0-12.0); NEUTROPHIL# 5.4 X10e3 (1.5-7.1); PLATELET COUNT 340 X10e3 (140-420); RED BLOOD COUNT 2.56 X10e (3.90-5.30); RED CELL DISTRIBUTION WIDTH 15.3 % (11.0-15.5); WHITE BLOOD COUNT 8.2 X10e3 (4.0-10.5)
[2017-02-13 05:35] LABS: DIFF IND NO
[2017-02-14 08:00] LABS: HEMATOCRIT 25.5 % (35.0-45.0); HEMOGLOBIN 8.3 gm/dL (12.0-16.0); MEAN CELL VOLUME 93.7 FL (83-96); MEAN CORPUSCULAR HEMOGLOBIN 30.5 PG (28-34); MEAN CORPUSCULAR HGB CONC 32.5 g/dL (30-36); MEAN PLATELET VOLUME 9.3 FL (6.5-11.5); RED BLOOD COUNT 2.72 X10e (3.90-5.30); RED CELL DISTRIBUTION WIDTH 14.8 % (11.0-15.5); WHITE BLOOD COUNT 7.3 X10e3 (4.0-10.5)
[2017-02-14 09:37] LABS: BUN/CREATININE RATIO 13.8; CALCIUM SERUM 8.6 mg/dL (8.4-10.2); CREATININE SERUM 2.1 mg/dL (0.6-1.4); GLOM FILT RATE Estimated 23.8 mL/min (>60); POTASSIUM 4.8 mmol/L (3.5-5.1)
[2017-02-14 11:09] LABS: BF TOTAL NUCLEATED CELL COUNT 210 CMM (0-100); BODY FLUID APPEARANCE CLEAR; BODY FLUID RBC <10000 CMM; BODY FLUID SOURCE THORACENTESIS
[2017-02-14 11:10] LABS: ARTERIAL BLOOD GAS HCO3 28.3 mmol/L; ARTERIAL BLOOD GAS PCO2 42.3 mmHg (35.0-45.0); ARTERIAL BLOOD GAS PO2 80.1 mmHg (80.0-100); ARTERIAL BLOOD GAS pH 7.433 (7.350-7.450)
[2017-02-15 07:12] LABS: BASOPHIL# 0.2 X10e3 (0-0.3); BASOPHIL% 2.2 % (0-2.5); EOSINOPHIL# 0.3 X10e3 (0-0.7); EOSINOPHIL% 3.5 % (0.0-7.0); HEMATOCRIT 27.2 % (35.0-45.0); HEMOGLOBIN 8.8 gm/dL (12.0-16.0); LYMPHOCYTE% 26.9 % (17.0-45.0); MEAN CELL VOLUME 94.5 FL (83-96); MEAN CORPUSCULAR HEMOGLOBIN 30.5 PG (28-34); MEAN CORPUSCULAR HGB CONC 32.3 g/dL (30-36); MEAN PLATELET VOLUME 9.7 FL (6.5-11.5); MONOCYTE% 12.9 % (3.0-12.0); NEUTROPHIL% 54.5 % (40-75); PLATELET COUNT 327 X10e3 (140-420); RED BLOOD COUNT 2.88 X10e (3.90-5.30); RED CELL DISTRIBUTION WIDTH 15.3 % (11.0-15.5); WHITE BLOOD COUNT 7.4 X10e3 (4.0-10.5)
[2017-02-15 07:17] LABS: DIFF IND NO
[2017-02-15 07:26] LABS: INR 1.1; PARTIAL THROMBOPLASTIN TIME 28.9 SECONDS (23.5-31.3)
[2017-02-15 07:36] LABS: BUN/CREATININE RATIO 15.71; CALCIUM SERUM 8.7 mg/dL (8.4-10.2); CREATININE SERUM 2.1 mg/dL (0.6-1.4); GLOM FILT RATE Estimated 23.8 mL/min (>60); POTASSIUM 4.8 mmol/L (3.5-5.1)
[2017-02-16 05:34] LABS: BASOPHIL# 0.1 X10e3 (0-0.3); BASOPHIL% 1.5 % (0-2.5); EOSINOPHIL# 0.2 X10e3 (0-0.7); EOSINOPHIL% 3.3 % (0.0-7.0); HEMATOCRIT 26.7 % (35.0-45.0); HEMOGLOBIN 8.7 gm/dL (12.0-16.0); LYMPHOCYTE# 2.1 X10e3 (1.0-3.5); LYMPHOCYTE% 28.8 % (17.0-45.0); MEAN CELL VOLUME 93.6 FL (83-96); MEAN CORPUSCULAR HEMOGLOBIN 30.3 PG (28-34); MEAN CORPUSCULAR HGB CONC 32.4 g/dL (30-36); MEAN PLATELET VOLUME 9.9 FL (6.5-11.5); MONOCYTE# 1.1 X10e3 (0-1.0); MONOCYTE% 14.9 % (3.0-12.0); NEUTROPHIL# 3.8 X10e3 (1.5-7.1); NEUTROPHIL% 51.5 % (40-75); PLATELET COUNT 320 X10e3 (140-420); RED BLOOD COUNT 2.86 X10e (3.90-5.30); RED CELL DISTRIBUTION WIDTH 15.4 % (11.0-15.5); WHITE BLOOD COUNT 7.4 X10e3 (4.0-10.5)
[2017-02-16 05:35] LABS: DIFF IND NO
[2017-02-16 06:16] LABS: BUN/CREATININE RATIO 16.66; CALCIUM SERUM 8.9 mg/dL (8.4-10.2); CREATININE SERUM 2.1 mg/dL (0.6-1.4); GLOM FILT RATE Estimated 23.8 mL/min (>60); POTASSIUM 5.4 mmol/L (3.5-5.1)
[2017-02-17 05:23] LABS: HEMATOCRIT 28.2 % (35.0-45.0); HEMOGLOBIN 9.2 gm/dL (12.0-16.0); MEAN CELL VOLUME 93.6 FL (83-96); MEAN CORPUSCULAR HEMOGLOBIN 30.8 PG (28-34); MEAN CORPUSCULAR HGB CONC 32.8 g/dL (30-36); MEAN PLATELET VOLUME 9.6 FL (6.5-11.5); RED BLOOD COUNT 3.01 X10e (3.90-5.30); RED CELL DISTRIBUTION WIDTH 15.3 % (11.0-15.5); WHITE BLOOD COUNT 6.8 X10e3 (4.0-10.5)
[2017-02-17 06:26] LABS: BUN/CREATININE RATIO 15.41; CREATININE SERUM 2.4 mg/dL (0.6-1.4); GLOM FILT RATE Estimated 20.2 mL/min (>60); PHOSPHOROUS 5.4 mg/dL (2.5-4.6)
[2017-02-17 06:30] LABS: POTASSIUM 5.6 mmol/L (3.5-5.1)
[2017-02-18 08:21] LABS: BASOPHIL# 0.1 X10e3 (0-0.3); BASOPHIL% 1.3 % (0-2.5); EOSINOPHIL# 0.6 X10e3 (0-0.7); EOSINOPHIL% 7.4 % (0.0-7.0); HEMATOCRIT 31.9 % (35.0-45.0); HEMOGLOBIN 10.2 gm/dL (12.0-16.0); LYMPHOCYTE% 27.5 % (17.0-45.0); MEAN CELL VOLUME 94.3 FL (83-96); MEAN CORPUSCULAR HEMOGLOBIN 30.1 PG (28-34); MEAN PLATELET VOLUME 10.3 FL (6.5-11.5); MONOCYTE# 1.1 X10e3 (0-1.0); MONOCYTE% 14.9 % (3.0-12.0); NEUTROPHIL# 3.6 X10e3 (1.5-7.1); NEUTROPHIL% 48.9 % (40-75); PLATELET COUNT 404 X10e3 (140-420); RED BLOOD COUNT 3.39 X10e (3.90-5.30); RED CELL DISTRIBUTION WIDTH 15.6 % (11.0-15.5); WHITE BLOOD COUNT 7.4 X10e3 (4.0-10.5)
[2017-02-18 08:23] LABS: DIFF IND NO
[2017-02-18 10:10] LABS: BUN/CREATININE RATIO 17.27; CREATININE SERUM 2.2 mg/dL (0.6-1.4); GLOM FILT RATE Estimated 22.5 mL/min (>60); MAGNESIUM 2.2 mg/dL (1.6-3.0); POTASSIUM 5.4 mmol/L (3.5-5.1)
[2017-02-19 06:19] LABS: HEMATOCRIT 30.9 % (35.0-45.0); MEAN CELL VOLUME 93.9 FL (83-96); MEAN CORPUSCULAR HEMOGLOBIN 30.5 PG (28-34); MEAN CORPUSCULAR HGB CONC 32.5 g/dL (30-36); MEAN PLATELET VOLUME 9.2 FL (6.5-11.5); RED BLOOD COUNT 3.29 X10e (3.90-5.30); RED CELL DISTRIBUTION WIDTH 15.6 % (11.0-15.5); WHITE BLOOD COUNT 6.2 X10e3 (4.0-10.5)
[2017-02-19 07:07] LABS: ALBUMIN SERUM 2.8 g/dL (3.5-5.0); BILIRUBIN,TOTAL 0.9 mg/dL (0.2-2.0); BUN/CREATININE RATIO 17.82; CALCIUM SERUM 9.4 mg/dL (8.4-10.2); CREATININE SERUM 2.3 mg/dL (0.6-1.4); GLOM FILT RATE Estimated 21.3 mL/min (>60); MAGNESIUM 2.4 mg/dL (1.6-3.0); PHOSPHOROUS 6.4 mg/dL (2.5-4.6); PROTEIN TOTAL SERUM 6.5 g/dL (6.0-8.3)
[2017-02-19 16:36] LABS: CALCIUM SERUM 8.7 mg/dL (8.4-10.2); CREATININE SERUM 2.5 mg/dL (0.6-1.4); GLOM FILT RATE Estimated 19.2 mL/min (>60); POTASSIUM 5.1 mmol/L (3.5-5.1)
[2017-02-20 04:26] LABS: HEMATOCRIT 29.7 % (35.0-45.0); HEMOGLOBIN 9.6 gm/dL (12.0-16.0); MEAN CELL VOLUME 94.6 FL (83-96); MEAN CORPUSCULAR HEMOGLOBIN 30.7 PG (28-34); MEAN CORPUSCULAR HGB CONC 32.4 g/dL (30-36); MEAN PLATELET VOLUME 9.2 FL (6.5-11.5); RED BLOOD COUNT 3.14 X10e (3.90-5.30); RED CELL DISTRIBUTION WIDTH 15.4 % (11.0-15.5)
[2017-02-20 04:45] LABS: BILIRUBIN,TOTAL 0.5 mg/dL (0.2-2.0); CREATININE SERUM 2.5 mg/dL (0.6-1.4); GLOM FILT RATE Estimated 19.2 mL/min (>60); MAGNESIUM 2.3 mg/dL (1.6-3.0); POTASSIUM 5.4 mmol/L (3.5-5.1); PROTEIN TOTAL SERUM 6.6 g/dL (6.0-8.3)
[2017-02-20 15:51] LABS: BUN/CREATININE RATIO 17.08; CREATININE SERUM 2.4 mg/dL (0.6-1.4); GLOM FILT RATE Estimated 20.2 mL/min (>60); POTASSIUM 5.1 mmol/L (3.5-5.1)
[2017-02-21 06:44] LABS: HEMATOCRIT 30.6 % (35.0-45.0); MEAN CELL VOLUME 93.3 FL (83-96); MEAN CORPUSCULAR HEMOGLOBIN 30.5 PG (28-34); MEAN CORPUSCULAR HGB CONC 32.7 g/dL (30-36); MEAN PLATELET VOLUME 8.7 FL (6.5-11.5); RED BLOOD COUNT 3.28 X10e (3.90-5.30); RED CELL DISTRIBUTION WIDTH 15.2 % (11.0-15.5); WHITE BLOOD COUNT 7.9 X10e3 (4.0-10.5)
[2017-02-21 07:15] LABS: ALBUMIN SERUM 2.8 g/dL (3.5-5.0); BILIRUBIN,TOTAL 0.8 mg/dL (0.2-2.0); BUN/CREATININE RATIO 16.08; CREATININE SERUM 2.3 mg/dL (0.6-1.4); GLOM FILT RATE Estimated 21.3 mL/min (>60); POTASSIUM 5.1 mmol/L (3.5-5.1); PROTEIN TOTAL SERUM 6.7 g/dL (6.0-8.3)
[2017-02-21] MEDS ORDERED: ACETAMINOPHEN650 M3 PO (18:04)
[2017-02-21] MEDS ORDERED: IMDUR-ER30 M1 PO (18:08)
== END 2017-02-21 19:03 | disposition home or self-care (01) | DRG 291 ==
LOC: CED 18:00 → CEDOF 22:25 → CICCU2 22:25 → CEDOF 22:37 → CED 22:37 → CICCU2 22:37 → CEDOF 23:34 → CICCU3 23:34 → CICCU2 23:43 → CICCU3 23:43 → CICCU2 02-11 07:42 → C3A PCU 02-13 18:14
PROVIDERS: Emergency Medicine; Family Medicine; Hospitalist; Internal Medicine; Internal Medicine Nephrology; Physician Assistant Medical
PROC: 0W9B30Z Drainage of Left Pleural Cavity with Drainage Device, Percutaneous Approach (ICD-10-PCS; principal; 2017-02-14)
PROC: 0W9930Z Drainage of Right Pleural Cavity with Drainage Device, Percutaneous Approach (ICD-10-PCS; 2017-02-15)
DX: I13.0 Hypertensive heart and chronic kidney disease with heart failure and stage 1 through stage 4 chronic kidney disease, or unspecified chronic kidney disease (principal); J96.01 Acute respiratory failure with hypoxia; N17.9 Acute kidney failure, unspecified; J96.02 Acute respiratory failure with hypercapnia; F33.2 Major depressive disorder, recurrent severe without psychotic features; E87.2 Acidosis; I50.43 Acute on chronic combined systolic (congestive) and diastolic (congestive) heart failure; N18.4 Chronic kidney disease, stage 4 (severe); J90 Pleural effusion, not elsewhere classified; Z68.1 Body mass index [BMI] 19.9 or less, adult; D63.1 Anemia in chronic kidney disease; E78.5 Hyperlipidemia, unspecified; Z91.19 Patient's noncompliance with other medical treatment and regimen; R62.7 Adult failure to thrive; F10.10 Alcohol abuse, uncomplicated; J44.9 Chronic obstructive pulmonary disease, unspecified; F41.9 Anxiety disorder, unspecified; I42.9 Cardiomyopathy, unspecified; E87.5 Hyperkalemia; R63.6 Underweight
CPT/HCPCS: 36415; 36600; 51702; 71010; 71250; 80048; 80053; 80076; 80307; 81003; 82274; 82308; 82553; 82570; 82803; 82945; 82947; 83605; 83615; 83735; 83880; 84100; 84157; 84300; 84484; 85025; 85027; 85379; 85610; 85730; 87040; 87070; 87086; 87205; 88108; 88305; 89051; 93005; 94640; 94660; 94760; 94761; 96374; 96375; 97110; 97116; 97163; 97167; 97530; 97535; 99291; G8978-GP; G8979-GP; G8980-GP; G8987-GO; G8988-GO; G8989-GO; J0885; J1250; J1650

== ENCOUNTER → 2017-03-01 | Outpatient (CLI) | payer MEDICARE, OTHER ==
[~2017-03-01] MED LIST changes: +ACETAMINOPHEN650 M3 PO; +ALLOPURINOL300 MG PO; +IMDUR-ER30 M1 PO; +RISPERDAL0.25 MG PO; +ZESTRIL2.5 MG PO
== END | disposition home or self-care (01) ==
LOC: CLAB 14:54
DX: N18.3 Chronic kidney disease, stage 3 (moderate) (principal); N25.81 Secondary hyperparathyroidism of renal origin
CPT/HCPCS: 80048; 82306; 82310; 82570; 83735; 83970; 84100; 84156; 84550; 85027; 87086

== ENCOUNTER 2017-03-07 17:05 | Inpatient (IN) | payer MEDICARE, OTHER ==
--- NOTE | ~2017-03-07 | CR170 ---
[facility] A Service of [facility] & [facility] RADIOLOGY TEXT RESULTS PATIENT: YINKA BRADY LOCATION: [facility] 56-01 : [birth year] UNIT #: [id number] AGE: [address]: King Newman MD SEX: F ORDER DR: [id number] [facility] [address] [facility]. [place], [place] [address] [id number] I MR#: [id number] Acc #: [id number] NAME: YINKA BRADY : 1950 SEX: F STUDY DATE/TIME: 03/09/2017 9:19 UNIT: [facility] ROOM: [facility] STUDY DESCRIPTION: CR Knee 2 Views Rt Attending Physician: King Newman M.D. Ordering Physician: King Newman M.D. Primary Care Physician: Mark Arnold M.D. MEDICAL IMAGING REPORT This report is preliminary unless electronic signature is present EXAM Right knee, 2 views HISTORY Extreme knee pain 3 days. COMPARISON STUDIES None. FINDINGS There is some soft tissue swelling anterior to the patella and a small knee joint effusion. There is no evidence for fracture, however. Osteopenia. Vascular calcifications. IMPRESSION Small knee joint effusion with soft tissue swelling anterior to the patella but no underlying fracture or dislocation. Dictated by... Josué Levy M.D. THIS IS AN ELECTRONICALLY VERIFIED REPORT Josué Levy M.D. at 03/10/2017 10:30 AM ARS/pcl TD: 03/09/2017 11:58 JOB #: [id number] MEDICAL IMAGING REPORT Page 1 of 1 COPY
--- NOTE | ~2017-03-07 | CR63 ---
[facility] A Service of [facility] & [facility] RADIOLOGY TEXT RESULTS PATIENT: YINKA BRADY LOCATION: [facility] 562- : [birth year] UNIT #: [id number] AGE: [address]: King Newman MD SEX: F ORDER DR: [id number] [facility] [address] [place], [place] [address] [id number] I MR#: [id number] Acc #: [id number] NAME: YINKA BRADY : 1950 SEX: F STUDY DATE/TIME: 03/10/2017 14:03 UNIT: [facility] ROOM: [facility] STUDY DESCRIPTION: CR Chest 2 View Attending Physician: King Newman M.D. Ordering Physician: Papo Loja M.D. Primary Care Physician: Mark Arnold M.D. MEDICAL IMAGING REPORT This report is preliminary unless electronic signature is present EXAM PA and lateral views of the chest COMPARISON February 15, 2017 and February 14, 2017 as well as February 12, 2017. INDICATIONS 66-year-old female with fever for 1 week. Chest congestion. History of hypertension and CHF. FINDINGS Cardiomegaly is again noted. There is a small left pleural effusion with associated left basilar atelectasis or pneumonia. Surgical hardware is again noted in the proximal right humerus, incompletely imaged. No evidence of pneumothorax. No evidence of pulmonary edema. Calcified granulomas in the right lung. IMPRESSION 1. Small left pleural effusion with associated left lung base opacity most likely atelectasis but pneumonia cannot be excluded. 2. Cardiomegaly without pulmonary edema. 3. As compared to February 12, [address], there is a persistent nodular density in the left upper lobe, which may be improved from comparison CT. Imaging followup is recommended to ensure resolution. This currently measures up to approximately 1.1 cm. Dictated by... Scar Seymour M.D. THIS IS AN ELECTRONICALLY VERIFIED REPORT Scar Seymour M.D. at 03/18/2017 9:15 PM [facility] A Service of [facility] & [facility] RADIOLOGY TEXT RESULTS PATIENT: YINKA BRADY LOCATION: [facility] 562-01 : [birth year] UNIT #: [id number] AGE: [address]: King Newman MD SEX: F ORDER DR: TD: 03/10/2017 21:45 JOB #: [id number] MEDICAL IMAGING REPORT Page 1 of 1 COPY
--- NOTE | ~2017-03-07 | CO ---
Unit #: [id number] #: [id number] Patient: SOFIA PALMA [id number] [facility] [address] [address] [id number] I MR#: [id number] NAME: SOFIA PALMA ROOM: 562 Age: 66 Sex: F Admission Date: 03/07/2017 : 1950 Attending Physician: King Newman M.D. Primary Care Physician: Mark Arnold M.D. Consultation Date: 03/09/2017 CONSULTATION REPORT REASON FOR CONSULTATION Ms. Sofia Palma is a 66-year-old white female, seen in room 562, bed 1 at [facility] on 03/09/2017. The patient was pleasant, cooperative, lying comfortably in bed. The patient reports medication helped with hallucination, still somewhat anxious and nervous. The patient is currently on CIWA protocol. Admitted recent use of alcohol. The patient is compliant with medication. No side effects from medication. The patient currently denied any suicidal or homicidal ideation. Denied any auditory or visual hallucination, but somewhat guarded. REVIEW OF SYSTEMS Complete review of systems is unremarkable. PHYSICAL EXAMINATION VITAL SIGNS: Temperature 101.5, respiratory rate 20, blood pressure 158/93, and oxygen saturation 97%. GENERAL APPEARANCE: The patient dressed casually, thin built, lying comfortably in a propped up position. Speech, regular rate and coherent. Oriented in time, place, and person. Mood and affect, labile. Thought process, coherent. Thought content, the patient denied any thoughts of harming self or others. Denied any hallucination. Recent and remote memory, fair. Language, intact. Fund of knowledge, fair. Insight and judgment, fair to slightly impaired. ASSESSMENT AND PLAN 1. Supportive psychotherapy and psychoeducation provided to the patient. 2. Educated about benefits and side effects of medication and course and prognosis of illness. 3. If needed, consider adjusting the dosage of Risperdal. Please feel free to call if any questions, telephone #[phone]. Dictated by... Kip Oliver M.D. DUONG/nic TD: 03/10/2017 10:09 JOB #: [id number] Unit #: [id number] #: [id number] Patient: SOFIA PALMA CONSULTATION REPORT Page 1 of 1 X Kip Oliver MD CONSULTATION REPORT
--- NOTE | ~2017-03-07 | CT71 ---
[facility] A Service of [facility] RADIOLOGY TEXT RESULTS PATIENT: YINKA BRADY LOCATION: [facility] [address] : [birth year] UNIT #: [id number] AGE: [address]: King Newman MD SEX: F ORDER DR: [id number] [facility] [address] [place], [place] [address] [id number] I MR#: [id number] Acc #: [id number] NAME: YINKA BRADY : 1950 SEX: F STUDY DATE/TIME: 03/07/2017 21:07 UNIT: [facility] ROOM: 99500 STUDY DESCRIPTION: CT Head Wo Contrast Attending Physician: King Newman M.D. Ordering Physician: Michell Shah M.D. Primary Care Physician: Mark Arnold M.D. MEDICAL IMAGING REPORT This report is preliminary unless electronic signature is present EXAM Head CT, no contrast, 03/07/17. INDICATION Headaches that began today. History of alcohol abuse. Stage IV renal disease. Hypertension. TECHNIQUE Noncontrast CT brain. COMPARISON Compared to 01/15/17. FINDINGS CT BRAIN: This CT exam was performed with one or more of the following radiation dose reduction techniques: automatic exposure control, adjustment of mA and/or kV according to patient size, and iterative reconstruction. There is mild generalized atrophy. Sulci and ventricles are otherwise unremarkable. No midline shift. No evidence of acute intracranial hemorrhage. There is no mass, mass effect or edema to suggest acute infarct and no extraaxial fluid collections are present. Basal ganglia calcification on the left unchanged. Decreased attenuation in the anterior limb internal capsule on the right also stable. Globes are intact. Bones intact. Sinuses clear. IMPRESSION 1. Atrophy and chronic ischemic changes. No clearly acute intracranial process. No evidence of acute intracranial hemorrhage. [facility] A Service of [facility] RADIOLOGY TEXT RESULTS PATIENT: YINKA BRADY LOCATION: [facility] 5610-24 : [birth year] UNIT #: [id number] AGE: [address]: King Newman MD SEX: F ORDER DR: Dictated by... Michel Hathaway M.D. THIS IS AN ELECTRONICALLY VERIFIED REPORT Michel Hathaway M.D. at 03/08/2017 11:27 AM BELTRAN/louis TD: 03/07/2017 23:03 JOB #: [id number] MEDICAL IMAGING REPORT Page 1 of 1 COPY
--- NOTE | ~2017-03-07 | HP ---
Unit #: [id number] #: [id number] Patient: SOFIA PALMA [id number] [facility] [place] [address] [id number] I MR#: [id number] NAME: SOFIA PALMA ROOM: 562 Age: 66 Sex: F Admission Date: 03/07/2017 : 1950 Attending Physician: King Newman M.D. Primary Care Physician: Mark Arnold M.D. HISTORY AND PHYSICAL ADMISSION DIAGNOSES 1. Altered mental status with some hallucinations. 2. Alcohol abuse. 3. History of polysubstance abuse. 4. Acute kidney injury with chronic kidney disease. 5. Questionable gout. 6. Dyslipidemia. 7. Hypertension. 8. Chronic obstructive pulmonary disease. 9. Anemia of chronic disease. 10. Questionable kpnmd-ay-uvkixmw pancreatitis. HISTORY OF PRESENT ILLNESS Ms. Sofia Palma is a 66-year-old female with past medical history of polysubstance abuse, alcohol abuse, noncompliance, along with hypertension, dyslipidemia, valvular heart disease and depression, who was most recently discharged from our service on 02/21/2017. Comes back with the complaints of neck pain and bilateral knee pain. Initial evaluation found her with creatinine 2.3 and she is being admitted. She denies any other active problems. Denies any chest pain, shortness of air, or dyspnea. Denies any fever, chills, nausea, vomiting, diarrhea or abdominal pain. Denies any recent alcohol consumption even though I have the report from the home nursing agency that is following her at home saying that she has been noticed to be consuming some alcohol again. Patient adamantly denies it. REVIEW OF SYSTEMS Twelve-point review of systems on this patient is basically negative except as above in HPI. PAST MEDICAL HISTORY As per HPI. PAST SURGICAL HISTORY Significant for: 1. Wrist surgery. 2. Right shoulder surgery. 3. Upper GI endoscopy. 4. Cardiac catheterization around January of this year. HOME MEDICATIONS Include: 1. Lexapro. 2. BuSpar. Unit #: [id number] #: [id number] Patient: SOFIA PALMA 3. Bumex. 4. Tylenol. 5. Imdur. 6. Sodium bicarbonate. 7. Ferrous sulfate. 8. Pepcid. 9. Florastor. 10. Multivitamin. 11. Synthroid. 12. Folic acid. 13. Mirtazapine. 14. Ultram. 15. Zestril. 16. Allopurinol. ALLERGIES No known drug allergies. SOCIAL HISTORY History of polysubstance abuse, alcohol abuse but currently denies all of it. Denies tobacco use. FAMILY HISTORY Unremarkable. PHYSICAL EXAMINATION VITAL SIGNS: BP 134/80, heart rate 86, respirations 18, temperature 98.2. GENERAL: The patient is a very thin, almost cachectic 66-year-old female in no acute distress. HEENT: Head is atraumatic. Pupils equal, round, reactive to light and accommodation. Extraocular muscles are intact. Oropharynx is clear. NECK: Supple. No mass, no JVD, no bruits. LUNGS: Diminished bilaterally. LOWER EXTREMITIES: Significant for mild swelling over the right knee with some erythema. It is pretty warm to touch as well. No calf edema. Peripheral pulses present. NEUROLOGIC: Patient without any focal deficits currently. Alert and oriented x3. DIAGNOSTIC STUDIES IMAGING: CT abdomen and pelvis significant for chgmi-vq-ifcccel pancreatitis, otherwise, no other acute findings. CT of the head was done which was basically unremarkable except for atrophy and chronic ischemic changes. ASSESSMENT AND PLAN 1. Altered mental status. Apparently, patient had some hallucinations yesterday status post evaluation per Psychiatry. Continue p.r.n. Haldol. Psychiatry wrote some Risperdal. 2. Maamx-cq-hctdvxk renal failure with questionable acute gouty flare, status post nephrology evaluation. Follow up on uric acid level. Continue supportive care and symptomatic management. 3. History of polysubstance abuse along with the history of alcohol abuse. Patient currently, adamantly denies it. Will community health counselor further on the importance of quitting alcohol and polysubstance abuse. 4. Hypertension, stable. Continue home medications. 5. COPD at baseline. Unit #: [id number] #: [id number] Patient: SOFIA PALMA 6. Questionable pghkk-kc-fdsoois pancreatitis. No abdominal pain. No white count elevation. Will check amylase and lipase, consider gastroenterology evaluation. 7. Anemia of chronic disease. Monitor. Currently stable. 8. GI and DVT prophylaxis. Continue SCDs and start on Pepcid. Dictated by KingSandro Cisse TD: 03/08/2017 21:06 JOB #: [id number] HISTORY AND PHYSICAL Page 1 of 1 X King Newman MD HISTORY AND PHYSICAL
--- NOTE | ~2017-03-07 | CO ---
Unit #: [id number] #: [id number] Patient: SOFIA PALMA [id number] [facility] [address]. [place] [id number] I MR#: [id number] NAME: SOFIA PALMA ROOM: 562 Age: 66 Sex: F Admission Date: 03/07/2017 : 1950 Attending Physician: King Newman M.D. Primary Care Physician: Mark Arnold M.D. Consultation Date: 03/08/2017 CONSULTATION REPORT REASON FOR CONSULTATION Anxiety, depression, hallucination. HISTORY OF PRESENT ILLNESS Ms. Sofia Palma is a 66-year-old white female, seen in room 562, bed 1, on 03/08/[address] [facility]. The patient was admitted with acute renal failure, acute kidney disease stage 3, acute respiratory failure. The patient denied any use of any drugs or alcohol, but reported that in the last week having problem with seeing objects, which is bothering her. The patient is having visual hallucination. The patient reports taking her medication Lexapro, Remeron, BuSpar regularly. The patient's sister was in the same room who reported that the patient seems to be drinking alcohol. The patient also reported last use of alcohol was in November. The patient has a longstanding history of alcohol abuse. The patient however did not disclose when she was admitted last on 02/2017. The patient was admitted on 03/07/2017. The patient currently denied any suicidal or homicidal ideation, but reported visual hallucination, no command hallucination or auditory hallucination. PAST PSYCHIATRIC HISTORY Remarkable for history of depression and outpatient treatment. No history of suicide attempt. According to new report, the patient also has a history of alcohol abuse, clean since December, but according to sister recent use of alcohol. PAST MEDICAL HISTORY Remarkable for history of acute renal failure, history of chronic kidney disease, acute respiratory failure, hypokalemia, history of valvular heart disease, chronic anemia, hypertension, hyperlipidemia, depressive disorder, COPD. MEDICATIONS The patient is on Lexapro, Remeron, BuSpar, Bumex, ferrous sulfate, famotidine, multivitamin, tramadol, Synthroid, folic acid, Imdur, DuoNeb. FAMILY HISTORY AND SOCIAL HISTORY The patient has a good support from her sister. No history of abuse. History of substance abuse as mentioned above. Drug of choice is alcohol. REVIEW OF SYSTEMS Complete review of systems is unremarkable except as mentioned above. PHYSICAL EXAMINATION VITAL SIGNS: Temperature 98.5, pulse 86, respirations 18, blood pressure Unit #: [id number] #: [id number] Patient: SOFIA PALMA 125/72, oxygen saturation 96%. MENTAL STATUS EXAMINATION General appearance, the patient is thin built, lying comfortably in bed. Attention span and concentration, fair. Speech, regular rate and coherent. Oriented in time, place, and person. Mood and affect, labile, sad, dysphoric, anxious. Thought process, coherent. Thought content, the patient denied any thoughts of harming self or others, but reported visual hallucination as mentioned above. No command hallucination. No auditory hallucination. Recent and remote memory, fair. Language, intact. Fund of knowledge, fair. Insight and judgment, fair to slightly impaired. DIAGNOSES Psychiatric: Major depressive disorder, recurrent, severe, F33.2; psychosis, not otherwise specified, F29.0; alcohol use disorder, severe F10.20. Secondary diagnosis: Deferred. Medical diagnosis: Please refer to H and P. Stressors: Psychosocial stressors. ASSESSMENT AND PLAN 1. Supportive psychotherapy and psychoeducation provided to the patient. 2. Educated about benefits and side effects of medication and course and prognosis of illness. 3. Advised to continue with current medication as mentioned above with a plan to add Risperdal 0.25 mg at bedtime for the above-mentioned symptom. If needed, consider further adjustment of medication. Also advised the patient to stay abstinent from alcohol. Please feel free to call if any questions, telephone #[phone]. Dictated by... Sandro Smith/nic TD: 03/10/2017 03:08 JOB #: [id number] CONSULTATION REPORT Page 1 of 1 X Kip Oliver MD CONSULTATION REPORT
--- NOTE | ~2017-03-07 | EKG ---
PATIENT: YINKA BRADY UNIT #: [id number] Ventricular Rate: 88 BPM Atrial Rate: 88 BPM P-R Interval: 202 ms QRS Duration: 78 ms Q-T Interval: 392 ms QTC Calculation(Bezet): 474 ms P Mcallister: 70 degrees Calculated R Mcallister: 44 degrees Calculated T Mcallister: 86 degrees Diagnosis Line: Normal sinus rhythm Diagnosis Line: Possible Anterior infarct (cited on or before Diagnosis Line: 10-FEB-2017) Diagnosis Line: Left atrial enlargement Diagnosis Line: Non Specific ST Changes- Abnormality Diagnosis Line: Abnormal ECG Diagnosis Line: When compared with ECG of 10-FEB-2017 18:32, Diagnosis Line: No significant change was found Diagnosis Line: Confirmed by CHAVEZ LOPEZ, ABDULLAHI ([id number]) on Diagnosis Line: 03/08/2017 4:03:23 PM INTERPRETING MD: KINA
--- NOTE | ~2017-03-07 | A ---
[facility] Nutrition Therapy DATE: 03/08/17 Patient: YINKA JOSE ANTONIO Physician: COLLEEN Address: [address] Room/Bed: [address] [place] [address], Zip: [place] [address] Admit Date: 03/07/17 Date of : [birth year] Height: 5 3 Weight: 88 40.1 NUTRITIONAL ASSESSMENT: REASON: Low BMI Dx: Acute chronic renal failure PMH: CKD, UTI, anemia, systolic HF, FTT, HTN, HLD Anthropometrics: ht: 5'3" wt: 88# (40 kg), BMI: 15, 77%IBW Labs: Glu 138, BUN 56, Creat 2.3, Alb 2.8, Phos 4.7, Lip 18, GFR 21.3 Meds: risperDAL, NaCl, tylenol, remeron, lexapro, folic acid, pepcid I/O & Bowel function: 840/300. Last BM 03/06 Skin Integrity: Dry skin BUE + BLE Assessment: Chart reviewed, events noted. Ms. Black is a 66 y/o female admitted for acute chronic renal failure. RD rn international spoke with pt at bedside. Pt reports losing 40# over the last year, noting a previous weight of ~120#. She reports this is due to her chronic illness and poor appetite. RD rn international encouraged pt to eat what she can tolerate, and pt agreed to Nepro supplements TID, which she drinks at home. Pt reported no diet questions at this time. RD will remain available. Dx: Unintentional weight loss r/t PMH, current clinical condition, poor appetite AEB pt reported 40# weight loss, BMI of 15, 77%IBW Intervention: 1. Healthy heart diet 2. Nepro supplements TID 3. K+ restricted diet Monitoring, Evaluation and Goals: 1. Weight; prevent further unintentional weight loss, promote gradual weight gain 2. Oral intake; tolerate/consume >50% of all meals/supplements 3. Labs; WNL Recommendations: 1. Nepro butter pecan supplements TID 2. Recommend adding K+ restriction to current healthy heart diet order. If pt consumes minimal po intake, recommend k+ restriction diet only [facility] Nutrition Therapy DATE: 03/08/17 Patient: YINKA BRADY Physician: COLLEEN Address: [address] Room/Bed: [address] [place] [address], Zip: [place] [address] Admit Date: 03/07/17 Date of : [birth year] Height: 5 3 Weight: 88 40.1 3. Encourage adequate PO intake. RD will f/u per protocol as pt is at mild/moderate nutritional risk. Respectfully, FILIPPO HILARIO, manager of internal audit Dalia Gannon MS, RD, LD [facility] and Nutrition[facility] Services [facility] cc: client file
--- NOTE | ~2017-03-07 | DS ---
Unit #: [id number] #: [id number] Patient: YINKA BRADY [id number] [address] [place], [place] [address] [id number] I MR#: [id number] NAME: YINKA BRADY ROOM: 56 Age: 66 Sex: F Admission Date: 03/07/2017 : 1950 Discharge Date: 03/11/2017 Attending Physician: King Newman M.D. Primary Care Physician: Mark Arnold M.D. DISCHARGE SUMMARY CONSULTATIONS DURING HOSPITALIZATION 1. Dr. Coulter from renal services. 2. Dr. Kip Oliver from psych services. ADMITTING PHYSICIAN Dr. King Newman. DISCHARGING PHYSICIAN Dr. Stacy Mohamud. DISCHARGE DIAGNOSES 1. Altered mental status on admission which is resolved. The patient had some hallucinations. Has been seen by psychiatrist. Patient medications were reviewed. Risperdal is being added. Patient's diagnosis is major depressive disorder, psychosis, alcohol use disorder. Patient may need to continue seeing psychiatrist as outpatient. Patient has been advised to stay abstinent from alcohol. Discussed with patient's sister also. 2. Acute kidney injury with history of chronic kidney disease. Patient does have chronic kidney disease. Patient has kidney disease stage 3 to 4. Patient was seen by Dr. Coulter, eco industrial development consultant. Patient's Bumex was held on admission. Patient's volume is baseline. Patient did require a little bit hydration but seems to be stable at this time. 3. Questionable acute on chronic pancreatitis. Patient did not complain of any abdominal pain. No white count elevation. Amylase and lipase were in normal range. 4. Hypertension which is stable on current medications. 5. History of diastolic congestive heart failure, ejection fraction of 55% with mild aortic stenosis. Patient's Bumex once a day will be restarted. Patient has appointment with Dr. Saldana. Advised and encouraged to keep that appointment. 6. Hypothyroidism: Patient is on Synthroid 25 mcg, continue same. 7. Hyperlipidemia: Continue home medications for anti-lipid treatment. 8. Chronic anemia. DISCHARGE MEDICATIONS 1. Sodium bicarbonate 650 t.i.d. 2. Tylenol 650 q.6 p.r.n. 3. Flonase nasal spray daily. 4. Lexapro 10 mg daily. 5. Remeron 7.5 mg nightly. 6. Risperidone 0.25 mg at bedtime. 7. BuSpar 15 mg twice a day. 8. Bumex 1 mg p.o. daily. Unit #: [id number] #: [id number] Patient: YINKA BRADY 9. Please note: Lisinopril has been discontinued at this time. 10. Ferrous sulfate 324 mg daily. 11. Pepcid 20 mg daily. 12. Allopurinol 300 mg daily. 13. Florastor 250 mg daily. 14. Multivitamin daily. 15. Ultram 50 mg q.6 p.r.n. 16. Isosorbide 30 mg daily. 17. Folic acid 1 mg daily. PHYSICAL EXAMINATION ON DISCHARGE VITAL SIGNS: Blood pressure is 167/80, respiratory rate 16, pulse 91, temperature 99.5. HEENT: Head is normocephalic. CHEST: Fair air entry. CARDIOVASCULAR: S1, S2 positive. Regular rhythm. ABDOMEN: Soft. EXTREMITIES: Negative edema. CENTRAL NERVOUS SYSTEM: Patient is awake, alert, oriented x3. No focal neurological deficit. DIAGNOSTIC STUDIES LABORATORY: Lab workup on discharge: Sodium 140, potassium 4.1, chloride 108, BUN 33, creatinine 1.6, calcium 8.3. WBC 9.6, hemoglobin 8, hematocrit 23.6, platelet count 408,000. RPR was nonreactive. Troponin less than 0.03. TSH 7.53. IMAGING: Significant imaging studies done during hospitalization were: CT scan of the head without contrast which shows atrophy and chronic ischemic changes. No clearly acute intracranial process. CT scan of the abdomen and pelvis was done which shows equivocal acute on chronic pancreatitis. Examination is otherwise negative. No clear acute process. Chest x-ray shows there is a persistent nodular density in the left upper lobe. Patient may need CT scan of the chest in three to four months or so. DISCHARGE INSTRUCTIONS 1. Patient is being discharged home with sister in stable condition. 2. Medication as per med rec. 3. Followup primary care provider in one week. 4. Followup cardiology as scheduled. 5. Please note, patient's TSH was elevated. We have increased Synthroid to 50 mcg p.o. daily. Prescription for that will be written. 6. CT scan of the chest needs to be repeated. Will be in four to five months. 7. PT/OT evaluated the patient during hospitalization and patient is able to ambulate. 8. Alcohol abstinence counseling was done. 9. Discussed with patient's sister at length about plan of care. Dictated by... Stacy Mohamud M.D. Unit #: [id number] #: [id number] Patient: YINKA BRADY GEORGE/yobany TD: 03/12/2017 09:17 JOB #: [id number] DISCHARGE SUMMARY Page 1 of 1 X Stacy Mohamud MD X DISCHARGE SUMMARY
--- NOTE | ~2017-03-07 | CO ---
Unit #: [id number] #: [id number] Patient: YINKA BRADY [id number] [address] [place], [place] [address] [id number] MR#: [id number] NAME: YINKA BRADY ROOM: 562 Age: 66 Sex: F Admission Date: 03/07/2017 : 1950 Attending Physician: King Newman M.D. Primary Care Physician: Mark Arnold M.D. Consultation Date: 03/08/2017 CONSULTATION REPORT REASON FOR CONSULTATION Elevated creatinine level. HISTORY OF PRESENT ILLNESS The patient is a 66-year-old white female, with known history of chronic kidney disease, stage 4 with previous creatine kinase of 17 mL/minute, baseline creatinine of around 2.5, history of diastolic dysfunction and recurrent admissions for chronic pancreatitis attributed to chronic alcohol use, also history of polysubstance use, hypertension, hyperlipidemia, history of clostridium difficile colitis now improved, and came in with overall body aches noted to have a creatinine level of 2.4. We were asked to follow her for that, also was noted to have a uric acid level of 11 in the office for which she was started on allopurinol. PAST MEDICAL HISTORY Significant for CHF, diastolic dysfunction, ejection fraction 55%, history of chronic respiratory failure, history of COPD, chronic kidney disease stage 4, history of Clostridium difficile colitis, chronic alcohol use, and cocaine use. PAST SURGICAL HISTORY Significant for right shoulder surgery, EGD, and wrist surgery. ALLERGIES No known drug allergies. SOCIAL HISTORY The patient now living with her sister, and has been off alcohol. FAMILY HISTORY Unremarkable for end-stage renal disease. REVIEW OF SYSTEMS CVS: No chest pain. RESPIRATORY: No cough or expectoration. GI: Minimal diarrhea. : No hematuria. No dysuria. PHYSICAL EXAMINATION GENERAL: The patient is awake, alert, and oriented. VITAL SIGNS: Blood pressure is 138/83, temperature is 98.5, heart rate 86 per minute, oxygen saturation is 96%. HEENT: Head is atraumatic. Extraocular movements are intact. NECK: Supple. There is no elevation of the JVD. Unit #: [id number] #: [id number] Patient: YINKA BRADY CHEST: Clear. Air entry is equal bilaterally. Breathing is vesicular in nature. HEART: S1, S2 audible. There is no S3, no S4. ABDOMEN: Soft. There is no organomegaly. No guarding. No rigidity. No rebound tenderness. There is no edema. OPHTHALMIC TECHNICIAN APPRENTICE: Motor system is intact. Cerebellar system is intact. CURRENT MEDICATIONS Include Risperdal, bumetanide 2 mg daily, sodium bicarbonate 650 t.i.d., Zyloprim 300 mg daily, Lexapro 10 mg daily, folic acid 1 mg daily, BuSpar. IMPRESSION 1. Chronic kidney disease, stage 3 to 4. The patient is at her baseline. Volume is acceptable. We will hold Bumex and fentanyl hydration overnight. 2. Hypertension. 3. History of pancreatitis. 4. History of Clostridium difficile colitis. 5. Hypertension. We will follow the patient with you. Dictated by... Alan Coulter M.D. RA/nic TD: 03/10/2017 02:19 JOB #: [id number] CONSULTATION REPORT Page 1 of 1 X Alan Coulter MD X CONSULTATION REPORT
--- NOTE | ~2017-03-07 | CO ---
Unit #: [id number] #: [id number] Patient: SOFIA PALMA [id number] [facility] [address]. [place], [place] [address] [id number] I MR#: [id number] NAME: SOFIA PALMA ROOM: 562 Age: 66 Sex: F Admission Date: 03/07/2017 : 1950 Attending Physician: King Newman M.D. Primary Care Physician: Mark Arnold M.D. Consultation Date: 03/11/2017 CONSULTATION REPORT REASON FOR CONSULTATION Followup. DISCUSSION Ms. Sofia Palma is a 56-year-old white female, seen in room 562 bed 1 on 03/11/2017 at [facility]. The patient reports that she is feeling better. Denied any visual hallucination. The patient was started with the CIWA protocol. The patient currently denied any suicidal or homicidal ideation. Denied any psychotic symptoms. The patient's vital signs; temperature 99.5, pulse 91, respirations 16, blood pressure 167/80, and oxygen saturation 97%. REVIEW OF SYSTEMS Complete review of systems is unremarkable. MENTAL STATUS EXAMINATION General appearance, the patient thin built, dressed casually, lying comfortably in bed. Attention span and concentration, fair. Speech, regular rate and coherent. Oriented in time, place, and person. Mood and affect, sad and dysphoric. Thought process, coherent. Thought content, the patient denied any thoughts of harming self or others. Recent and remote memory, fair. Language, intact. Fund of knowledge, fair to slightly impaired. Insight and judgment, fair to slightly impaired. DIAGNOSES Psychiatric: Major depressive disorder, recurrent, severe, F33.2; alcohol use disorder, severe, F10.20; psychosis, not otherwise specified F29.0, resolved. ASSESSMENT/PLAN 1. Supportive psychotherapy and psychoeducation provided to the patient. 2. Educated about benefits and side effects of medication and course and prognosis of illness. 3. The patient was advised to follow up at [facility] at [facility] and given crisis line #[phone]. Please feel free to call if any questions, telephone #[phone]. Dictated by... Kip Oliver M.D. [facility] [place] Unit #: [id number] #: [id number] Patient: SOFIA PALMA TD: 03/12/2017 14:32 JOB #: [id number] CONSULTATION REPORT Page 1 of 1 X Kip Oliver MD X CONSULTATION REPORT
--- NOTE | ~2017-03-07 | CT4 ---
[facility] A Service of [facility] RADIOLOGY TEXT RESULTS PATIENT: YINKA BRADY LOCATION: [facility] 562-01 : [birth year] UNIT #: [id number] AGE: [address]: King Newman MD SEX: F ORDER DR: [id number] [facility] [address]. [place], [place] [address] [id number] I MR#: [id number] Acc #: [id number] NAME: YINKA BRADY : 1950 SEX: F STUDY DATE/TIME: 03/07/2017 21:13 UNIT: CEDOF ROOM: 51833 STUDY DESCRIPTION: CT Abd and Pelv Wo Cont Attending Physician: King Newman M.D. Ordering Physician: Michell Shah M.D. Primary Care Physician: Mark Arnold M.D. MEDICAL IMAGING REPORT This report is preliminary unless electronic signature is present EXAM Abdomen and pelvis CT, no contrast 03/07/2017 INDICATIONS A 66-year-old female with microhematuria. Elevated white count, flank pain on the left. Headaches today TECHNIQUE Noncontrast abdomen and pelvis CT was performed and compared with 12/27/2016. This CT exam was performed with one or more of the following radiation dose reduction techniques: automatic exposure control, adjustment of mA and/or kV according to patient size, and iterative reconstruction. FINDINGS CT ABDOMEN: Markedly degraded by noncontrast technique. Included lung bases demonstrate emphysema and subpleural scarring and fibrosis. There is chronic-appearing pleural thickening or trace pleural fluid on the right. No pericardial effusion. Aorta demonstrates tortuosity and atherosclerotic change. The spleen and right adrenal gland are normal. Stable low attenuation lesion in the left adrenal gland measuring 13 mm. By density measurements, this cannot be classified as a benign adenoma but likely represents a benign lipid poor adenoma. It is unchanged from the prior study and can be followed on subsequent examinations to document stability. Pancreas demonstrates sequela of chronic calcific pancreatitis. There is some minimal stranding in the region of the pancreatic head and uncinate process which could potentially representing a component of eockk-nn-fdnsyff pancreatitis. Correlate with amylase and lipase levels. The appearance however is improved from the prior study. [facility] A Service of [facility] RADIOLOGY TEXT RESULTS PATIENT: YINKA BRADY LOCATION: C5B 562-01 : [birth year] UNIT #: [id number] AGE: [address]: King Newman MD SEX: F ORDER DR: Gallbladder unremarkable. Liver unremarkable. There is a trace amount of perihepatic ascites at the hepatic dome. Stomach not well distended or evaluated. Kidneys demonstrate no radiopaque stone or hydronephrosis. Ureters not well visualized or assessed but no distinct secondary sign of obstruction on either side. Probable reactive retroperitoneal nodes not significantly changed. CT PELVIS: Bladder unremarkable. Trace free fluid in the pelvis. There is no adnexal mass. Diverticulosis. No bowel obstruction or focal inflammatory change of the bowel. The appendix is normal. Inguinal canals unremarkable. No suspicious bone lesion. Degenerative change in the thoracolumbar spine. IMPRESSION 1. Equivocal qtvpu-xb-bycxqxy pancreatitis. Correlate with amylase and lipase levels. 2. Examination is otherwise negative. No clearly acute process identified. No hydronephrosis of either kidney or radiopaque stone on either side, and the appendix is normal. No bowel obstruction. 3. Probably benign left adrenal adenoma. See discussion above. 4. Uncomplicated diverticulosis. 5. Other incidental findings as described. Dictated by... Michel Hathaway M.D. THIS IS AN ELECTRONICALLY VERIFIED REPORT Michel Hathaway M.D. at 03/08/2017 11:26 AM Malvin TD: 03/07/2017 23:03 JOB #: [id number] MEDICAL IMAGING REPORT Page 1 of 1 COPY
[~2017-03-07 17:05] MED LIST changes: -ALLOPURINOL300 MG PO; -RISPERDAL0.25 MG PO; -ZESTRIL2.5 MG PO
[2017-03-07 18:42] LABS: BASOPHIL# 0.1 X10e3 (0-0.3); EOSINOPHIL# 0.1 X10e3 (0-0.7); EOSINOPHIL% 0.8 % (0.0-7.0); HEMATOCRIT 31.5 % (35.0-45.0); HEMOGLOBIN 10.2 gm/dL (12.0-16.0); LYMPHOCYTE# 0.9 X10e3 (1.0-3.5); LYMPHOCYTE% 6.6 % (17.0-45.0); MEAN CELL VOLUME 93.9 FL (83-96); MEAN CORPUSCULAR HEMOGLOBIN 30.3 PG (28-34); MEAN CORPUSCULAR HGB CONC 32.3 g/dL (30-36); MEAN PLATELET VOLUME 9.2 FL (6.5-11.5); MONOCYTE# 1.8 X10e3 (0-1.0); MONOCYTE% 13.7 % (3.0-12.0); NEUTROPHIL% 77.9 % (40-75); PLATELET COUNT 391 X10e3 (140-420); RED BLOOD COUNT 3.36 X10e (3.90-5.30); RED CELL DISTRIBUTION WIDTH 14.7 % (11.0-15.5); WHITE BLOOD COUNT 12.9 X10e3 (4.0-10.5)
[2017-03-07 18:46] LABS: DIFF IND NO
[2017-03-07 19:00] LABS: BUN/CREATININE RATIO 23.91; CALCIUM SERUM 8.8 mg/dL (8.4-10.2); CREATININE SERUM 2.3 mg/dL (0.6-1.4); GLOM FILT RATE Estimated 21.3 mL/min (>60); MAGNESIUM 1.8 mg/dL (1.6-3.0); POTASSIUM 4.5 mmol/L (3.5-5.1)
[2017-03-07 19:31] LABS: URINE SOURCE CLEAN CATCH
[2017-03-07 19:38] LABS: URINE APPEARANCE CLEAR; URINE BILIRUBIN NEG (NEG); URINE BLOOD 3+ (NEG); URINE COLOR YELLOW; URINE GLUCOSE NEG (NEG); URINE KETONE NEG (NEG); URINE LEUKOCYTE ESTERASE TRACE (NEG); URINE NITRATE NEG (NEG); URINE PH 6.5 (5-8); URINE PROTEIN TRACE (NEG)
[2017-03-07 19:42] LABS: URBCS1 AUWI 200-300 /[HPF] (0-2); URINE BACTERIA AUWI NEG (NEGATIVE); URINE SQUAMOUS EPITHELIAL CELL NONE SEEN /[HPF]
[2017-03-07 19:45] LABS: CULTURE INDICATED? NO
[2017-03-07] MEDS ORDERED: ZESTRIL2.5 MG PO (21:18)
[2017-03-07] MEDS ORDERED: ALLOPURINOL300 MG PO (21:19)
[2017-03-08 05:03] LABS: BASOPHIL# 0.1 X10e3 (0-0.3); BASOPHIL% 0.8 % (0-2.5); EOSINOPHIL# 0.2 X10e3 (0-0.7); HEMATOCRIT 26.3 % (35.0-45.0); HEMOGLOBIN 8.6 gm/dL (12.0-16.0); LYMPHOCYTE% 8.4 % (17.0-45.0); MEAN CELL VOLUME 93.4 FL (83-96); MEAN CORPUSCULAR HEMOGLOBIN 30.4 PG (28-34); MEAN CORPUSCULAR HGB CONC 32.6 g/dL (30-36); MEAN PLATELET VOLUME 9.5 FL (6.5-11.5); MONOCYTE# 1.7 X10e3 (0-1.0); MONOCYTE% 14.1 % (3.0-12.0); NEUTROPHIL# 8.8 X10e3 (1.5-7.1); NEUTROPHIL% 74.7 % (40-75); PLATELET COUNT 350 X10e3 (140-420); RED BLOOD COUNT 2.82 X10e (3.90-5.30); RED CELL DISTRIBUTION WIDTH 14.6 % (11.0-15.5); WHITE BLOOD COUNT 11.8 X10e3 (4.0-10.5)
[2017-03-08 05:08] LABS: DIFF IND NO
[2017-03-08 06:25] LABS: BUN/CREATININE RATIO 24.34; CALCIUM SERUM 8.6 mg/dL (8.4-10.2); CREATININE SERUM 2.3 mg/dL (0.6-1.4); GLOM FILT RATE Estimated 21.3 mL/min (>60); POTASSIUM 4.3 mmol/L (3.5-5.1)
[2017-03-08 20:48] LABS: CK TOTAL 17 IU/L (26-140)
[2017-03-09 06:49] LABS: AMPHETAMINE NEG (NEG); BARBITURATES NEG (NEG); BENZODIAZEPINES NEG (NEG); COCAINE NEG (NEG); MARIJUANA NEG (NEG); OPIATES POS (NEG); TRICYCLIC ANTIDEPRESSANTS NEG (NEG); U METHADONE NEG (NEG)
[2017-03-09 07:41] LABS: BASOPHIL# 0.1 X10e3 (0-0.3); BASOPHIL% 0.8 % (0-2.5); EOSINOPHIL# 0.4 X10e3 (0-0.7); EOSINOPHIL% 3.2 % (0.0-7.0); HEMATOCRIT 26.4 % (35.0-45.0); HEMOGLOBIN 8.5 gm/dL (12.0-16.0); LYMPHOCYTE# 0.9 X10e3 (1.0-3.5); LYMPHOCYTE% 7.8 % (17.0-45.0); MEAN CELL VOLUME 94.1 FL (83-96); MEAN CORPUSCULAR HEMOGLOBIN 30.3 PG (28-34); MEAN CORPUSCULAR HGB CONC 32.2 g/dL (30-36); MEAN PLATELET VOLUME 9.2 FL (6.5-11.5); MONOCYTE# 1.2 X10e3 (0-1.0); NEUTROPHIL# 8.5 X10e3 (1.5-7.1); NEUTROPHIL% 77.2 % (40-75); PLATELET COUNT 398 X10e3 (140-420); RED CELL DISTRIBUTION WIDTH 14.5 % (11.0-15.5)
[2017-03-09 07:43] LABS: DIFF IND NO
[2017-03-09 08:23] LABS: BUN/CREATININE RATIO 23.33; CALCIUM SERUM 8.3 mg/dL (8.4-10.2); CREATININE SERUM 2.1 mg/dL (0.6-1.4); GLOM FILT RATE Estimated 23.8 mL/min (>60); POTASSIUM 3.9 mmol/L (3.5-5.1); THYROID STIMULATING HORMONE 7.53 uIU/ml (0.34-5.60)
[2017-03-09 08:30] LABS: FREE THYROXIN (T4) 0.79 ng/dL (0.58-1.64)
[2017-03-10 06:27] LABS: HEMOGLOBIN 8.2 gm/dL (12.0-16.0); MEAN CELL VOLUME 93.1 FL (83-96); MEAN CORPUSCULAR HEMOGLOBIN 30.5 PG (28-34); MEAN CORPUSCULAR HGB CONC 32.8 g/dL (30-36); MEAN PLATELET VOLUME 8.5 FL (6.5-11.5); RED BLOOD COUNT 2.69 X10e (3.90-5.30); RED CELL DISTRIBUTION WIDTH 14.5 % (11.0-15.5); WHITE BLOOD COUNT 10.5 X10e3 (4.0-10.5)
[2017-03-10 07:21] LABS: ALBUMIN SERUM 2.2 g/dL (3.5-5.0); BUN/CREATININE RATIO 23.52; CALCIUM SERUM 8.6 mg/dL (8.4-10.2); CREATININE SERUM 1.7 mg/dL (0.6-1.4); GLOM FILT RATE Estimated 30.7 mL/min (>60); PROTEIN TOTAL SERUM 5.8 g/dL (6.0-8.3); URIC ACID 6.8 mg/dL (2.6-7.2)
[2017-03-11 06:23] LABS: URINE APPEARANCE CLEAR; URINE BILIRUBIN NEG (NEG); URINE BLOOD 3+ (NEG); URINE COLOR YELLOW; URINE GLUCOSE NEG (NEG); URINE KETONE NEG (NEG); URINE LEUKOCYTE ESTERASE TRACE (NEG); URINE NITRATE NEG (NEG); URINE PROTEIN NEG (NEG); URINE SPECIFIC GRAVITY 1.012 (1.003-1.035)
[2017-03-11 06:27] LABS: CULTURE INDICATED? NO; U HYALINE CASTS AUWI 0-2 /[LPF]; URBCS1 AUWI 100-200 /[HPF] (0-2); URINE BACTERIA AUWI NEG (NEGATIVE); URINE SQUAMOUS EPITHELIAL CELL NONE SEEN /[HPF]
[2017-03-11 07:33] LABS: HEMATOCRIT 23.6 % (35.0-45.0); MEAN CELL VOLUME 92.7 FL (83-96); MEAN CORPUSCULAR HEMOGLOBIN 31.2 PG (28-34); MEAN CORPUSCULAR HGB CONC 33.7 g/dL (30-36); MEAN PLATELET VOLUME 8.4 FL (6.5-11.5); RED BLOOD COUNT 2.55 X10e (3.90-5.30); RED CELL DISTRIBUTION WIDTH 14.2 % (11.0-15.5); WHITE BLOOD COUNT 9.6 X10e3 (4.0-10.5)
[2017-03-11 08:15] LABS: BUN/CREATININE RATIO 20.62; CALCIUM SERUM 8.3 mg/dL (8.4-10.2); CREATININE SERUM 1.6 mg/dL (0.6-1.4); POTASSIUM 4.1 mmol/L (3.5-5.1)
[2017-03-11] MEDS ORDERED: RISPERDAL0.25 MG PO (11:22)
== END 2017-03-11 12:29 | disposition home health service (06) | DRG 682 ==
LOC: CED 17:05 → CEDOF 22:00 → CED 22:32 → C5B 22:32 → CEDOF 23:30 → C5B 03-11 12:29
PROVIDERS: Hospitalist; Internal Medicine; Internal Medicine Nephrology; Student in an Organized Health Care Education/Training Program
DX: N17.9 Acute kidney failure, unspecified (principal); K85.90 Acute pancreatitis without necrosis or infection, unspecified; I38 Endocarditis, valve unspecified; F33.2 Major depressive disorder, recurrent severe without psychotic features; I13.0 Hypertensive heart and chronic kidney disease with heart failure and stage 1 through stage 4 chronic kidney disease, or unspecified chronic kidney disease; I50.32 Chronic diastolic (congestive) heart failure; K86.1 Other chronic pancreatitis; E87.1 Hypo-osmolality and hyponatremia; F29 Unspecified psychosis not due to a substance or known physiological condition; F10.20 Alcohol dependence, uncomplicated; N18.4 Chronic kidney disease, stage 4 (severe); E03.9 Hypothyroidism, unspecified; E78.5 Hyperlipidemia, unspecified; D63.1 Anemia in chronic kidney disease; M10.9 Gout, unspecified; J44.9 Chronic obstructive pulmonary disease, unspecified; E87.5 Hyperkalemia
CPT/HCPCS: 36415; 70450; 71020; 73560; 74176; 80048; 80053; 80307; 81003; 82150; 82550; 83690; 83735; 84439; 84443; 84484; 84550; 85025; 85027; 86592; 93005; 94640; 94760; 97162; 97166; 99285; G8978-GP; G8979-GP; G8980-GP; G8987-GO; G8988-GO; G8989-GO; J1650; J3411; J7042

== ENCOUNTER → 2017-03-22 | Outpatient (CLI) | payer MEDICARE, OTHER ==
[~2017-03-22] MED LIST changes: +ALLOPURINOL300 MG PO; +RISPERDAL0.25 MG PO; +ZESTRIL2.5 MG PO
[2017-03-22 13:26] LABS: HEMATOCRIT 29.3 % (35.0-45.0); HEMOGLOBIN 9.7 gm/dL (12.0-16.0); MEAN CELL VOLUME 93.1 FL (83-96); MEAN CORPUSCULAR HEMOGLOBIN 30.7 PG (28-34); MEAN PLATELET VOLUME 7.8 FL (6.5-11.5); RED BLOOD COUNT 3.15 X10e (3.90-5.30); RED CELL DISTRIBUTION WIDTH 14.6 % (11.0-15.5); WHITE BLOOD COUNT 10.2 X10e3 (4.0-10.5)
[2017-03-22 14:10] LABS: ALBUMIN SERUM 3.3 g/dL (3.5-5.0); BILIRUBIN,TOTAL 0.4 mg/dL (0.2-2.0); CALCIUM SERUM 9.5 mg/dL (8.4-10.2); CREATININE SERUM 2.6 mg/dL (0.6-1.4); GLOM FILT RATE Estimated 18.3 mL/min (>60); POTASSIUM 5.4 mmol/L (3.5-5.1); PROTEIN TOTAL SERUM 7.5 g/dL (6.0-8.3); URIC ACID 4.1 mg/dL (2.6-7.2)
== END | disposition home or self-care (01) ==
LOC: CLAB 12:39
PROVIDERS: Internal Medicine
DX: M10.9 Gout, unspecified (principal); R85.9 Unspecified abnormal finding in specimens from digestive organs and abdominal cavity
CPT/HCPCS: 36415; 80053; 82140; 84550; 85027

== ENCOUNTER → 2017-03-28 | Outpatient (CLI) | payer MEDICARE, OTHER ==
[2017-03-28 13:13] LABS: BUN/CREATININE RATIO 24.76; CALCIUM SERUM 9.4 mg/dL (8.4-10.2); CREATININE SERUM 2.1 mg/dL (0.6-1.4); GLOM FILT RATE Estimated 23.8 mL/min (>60)
== END | disposition home or self-care (01) ==
LOC: CLAB 12:14
PROVIDERS: Nurse Practitioner
DX: R63.4 Abnormal weight loss (principal)
CPT/HCPCS: 36415; 80048

== ENCOUNTER → 2017-04-03 | Outpatient (CLI) | payer MEDICARE, OTHER ==
[2017-04-03 15:53] LABS: HEMATOCRIT 28.7 % (35.0-45.0); HEMOGLOBIN 9.5 gm/dL (12.0-16.0); MEAN CELL VOLUME 93.5 FL (83-96); MEAN CORPUSCULAR HEMOGLOBIN 30.9 PG (28-34); MEAN PLATELET VOLUME 8.3 FL (6.5-11.5); RED BLOOD COUNT 3.07 X10e (3.90-5.30); RED CELL DISTRIBUTION WIDTH 15.8 % (11.0-15.5)
[2017-04-03 15:54] LABS: URINE APPEARANCE CLEAR; URINE BILIRUBIN NEG (NEG); URINE BLOOD 3+ (NEG); URINE COLOR YELLOW; URINE GLUCOSE 250 MG/DL (NEG); URINE KETONE NEG (NEG); URINE LEUKOCYTE ESTERASE TRACE (NEG); URINE NITRATE NEG (NEG); URINE PROTEIN NEG (NEG); URINE SPECIFIC GRAVITY 1.015 (1.003-1.035); URINE UROBILINOGEN 0.2 MG/DL (NEG)
[2017-04-03 15:56] LABS: URBCS1 AUWI 50-100 /[HPF] (0-2); URINE BACTERIA AUWI NEG (NEGATIVE); URINE SQUAMOUS EPITHELIAL CELL NONE SEEN /[HPF]
[2017-04-03 15:59] LABS: URINE SOURCE CLEAN CATCH
[2017-04-03 16:16] LABS: ALBUMIN SERUM 3.6 g/dL (3.5-5.0); BILIRUBIN,TOTAL 0.2 mg/dL (0.2-2.0); BUN/CREATININE RATIO 25.26; CALCIUM SERUM 9.6 mg/dL (8.4-10.2); CREATININE SERUM 1.9 mg/dL (0.6-1.4); GLOM FILT RATE Estimated 26.8 mL/min (>60); POTASSIUM 3.7 mmol/L (3.5-5.1); PROTEIN TOTAL SERUM 7.9 g/dL (6.0-8.3)
== END | disposition home or self-care (01) ==
LOC: CLAB 15:22
PROVIDERS: Nurse Practitioner Family
DX: K74.60 Unspecified cirrhosis of liver (principal)
CPT/HCPCS: 36415; 80053; 81003; 82140; 83690; 85027; 87086

== ENCOUNTER → 2017-04-15 | Outpatient (CLI) | payer MEDICARE, OTHER ==
--- NOTE | ~2017-04-15 | EKG ---
PATIENT: YINKA BRADY UNIT #: [id number] Ventricular Rate: 96 BPM Atrial Rate: 96 BPM P-R Interval: 228 ms QRS Duration: 82 ms Q-T Interval: 370 ms QTC Calculation(Bezet): 467 ms P [place]: 73 degrees Calculated R [place]: 37 degrees Calculated T [place]: 72 degrees Diagnosis Line: Sinus rhythm with 1st degree A-V block Diagnosis Line: Right atrial enlargement Diagnosis Line: Borderline ECG Diagnosis Line: When compared with ECG of 07-MAR-2017 18:08, Diagnosis Line: T wave inversion no longer evident in Anterior Diagnosis Line: leads Diagnosis Line: Confirmed by PITO GONZALES MD ([id number]) on Diagnosis Line: 04/16/2017 5:07:02 PM INTERPRETING MD: CHRISTIAN LOPEZ
[2017-04-15 16:24] LABS: HEMATOCRIT 29.3 % (35.0-45.0); HEMOGLOBIN 9.7 gm/dL (12.0-16.0); MEAN CELL VOLUME 92.3 FL (83-96); MEAN CORPUSCULAR HEMOGLOBIN 30.6 PG (28-34); MEAN CORPUSCULAR HGB CONC 33.2 g/dL (30-36); MEAN PLATELET VOLUME 7.6 FL (6.5-11.5); RED BLOOD COUNT 3.18 X10e (3.90-5.30); RED CELL DISTRIBUTION WIDTH 15.9 % (11.0-15.5); WHITE BLOOD COUNT 10.1 X10e3 (4.0-10.5)
[2017-04-15 16:30] LABS: URINE APPEARANCE CLEAR; URINE BILIRUBIN NEG (NEG); URINE BLOOD 3+ (NEG); URINE COLOR YELLOW; URINE GLUCOSE NEG (NEG); URINE KETONE NEG (NEG); URINE LEUKOCYTE ESTERASE NEG (NEG); URINE NITRATE NEG (NEG); URINE PH 5.5 (5-8); URINE PROTEIN NEG (NEG); URINE UROBILINOGEN 0.2 MG/DL (NEG)
[2017-04-15 16:32] LABS: URBCS1 AUWI 50-100 /[HPF] (0-2); URINE BACTERIA AUWI NEG (NEGATIVE); URINE SQUAMOUS EPITHELIAL CELL NONE SEEN /[HPF]; UWBCS1 AUWI 0-2 (0-5)
[2017-04-15 16:43] LABS: URINE SOURCE CLEAN CATCH
[2017-04-15 16:50] LABS: ALBUMIN SERUM 3.9 g/dL (3.5-5.0); BILIRUBIN,TOTAL 0.6 mg/dL (0.2-2.0); BUN/CREATININE RATIO 28.09; CALCIUM SERUM 9.5 mg/dL (8.4-10.2); CREATININE SERUM 2.1 mg/dL (0.6-1.4); GLOM FILT RATE Estimated 23.8 mL/min (>60); POTASSIUM 4.5 mmol/L (3.5-5.1); PROTEIN TOTAL SERUM 7.9 g/dL (6.0-8.3)
== END | disposition home or self-care (01) ==
LOC: CLAB 15:38
PROVIDERS: Nurse Practitioner Family
DX: R06.00 Dyspnea, unspecified (principal); R07.9 Chest pain, unspecified; I50.9 Heart failure, unspecified; K86.1 Other chronic pancreatitis; N18.9 Chronic kidney disease, unspecified; I44.0 Atrioventricular block, first degree; I51.7 Cardiomegaly
CPT/HCPCS: 80053; 81003; 83690; 83880; 85027; 93005